=== PATIENT | male | born 1940 | race Caucasian/White ===

== ENCOUNTER 2016-02-20 07:54 | Emergency (ER) | payer MEDICARE ==
[2016-02-20] MEDS ORDERED: ONDANSETRON 4 MG/2 ML VIAL IVP STA (08:30)
[2016-02-20] MEDS ORDERED: MORPHINE SULFATE 4 MG/ML SYRINGE IV STA (08:30)
[2016-02-20] MEDS ORDERED: NITROGLYCERIN OINT 1 INCH/GM PACKET TOPICAL STA (08:30)
[2016-02-20] MEDS ORDERED: SODIUM CHLORIDE 0.9% 1,000 ML IV STA (08:30)
[2016-02-20] MEDS ORDERED: ENALAPRILAT 1.25 MG/ML 1 ML VIAL IVP STA (08:31)
--- NOTE | 2016-02-20 08:43 | ED ---
General Adult HPI - General Chief complaint: Recheck/Abnormal Lab/Rx Stated complaint: high bp Time Seen by Provider: 02/20/16 08:16 Source: patient, family Mode of arrival: wheelchair Limitations: no limitations - History of Present Illness Initial comments: Centered over the high blood pressure, his blood pressure this morning was at home was 205/95 in the ER was 226/95 beats off-and-on back pain since since and he was worried about his back pain and wanted the x-ray done because his family doctor called his urologist but these complaining about headache no blurred vision no chest pain no shortness of breath no abdominal pain he is complaining about the back pain that started the level of L4 and L5 no nausea no vomiting no frequency urgency dysuria back pain is 8/10 when he moves and when he is not moving his he is okay - Related Data Home Medications Medication Instructions Recorded Confirmed Calcium Carbonate [Tums] 500 - 1,000 mg PO HS PRN 04/22/15 02/20/16 Doxazosin [Cardura] 4 mg PO HS 04/22/15 02/20/16 Primidone [Mysoline] 100 mg PO QAM 04/22/15 02/20/16 Lansoprazole [Prevacid] 15 mg PO HS 06/27/15 02/20/16 Primidone [Mysoline] 50 mg PO HS 06/27/15 02/20/16 Propranolol HCl [Inderal] 60 mg PO BID 06/27/15 02/20/16 Simvastatin [Zocor] 20 mg PO Q48H 06/27/15 02/20/16 Aspirin 325 mg PO DAILY 02/20/16 02/20/16 Calcium Polycarbophil [Fibercon] 625 mg PO DAILY 02/20/16 02/20/16 Simvastatin [Zocor] 10 mg PO Q48H 02/20/16 02/20/16 Previous Rx's Medication Instructions Recorded Lisinopril [Zestril] 5 mg PO DAILY #90 tablet 04/25/15 traMADol HCL [Ultram] 50 mg PO Q6HR PRN #30 tab 02/20/16 Allergies Allergy/AdvReac Type Severity Reaction Status Date / Time No Known Allergies Allergy Verified 02/20/16 08:58 Review of Systems ROS Statement: Those systems with pertinent positive or pertinent negative responses have been documented in the HPI. ROS Other: All systems not noted in ROS Statement are negative. Past Medical History Past Medical History: Cancer, GERD/Reflux, Hyperlipidemia, Hypertension Additional Past Medical History / Comment(s): HX: PROSTATE CANCER. RENAL CALCULI kidney ca essential tremor History of Any Multi-Drug Resistant Organisms: None Reported Past Surgical History: Cholecystectomy, Heart Catheterization, Hernia Repair, Prostate Surgery Additional Past Surgical History / Comment(s): BILATERAL HERNIA. partial nephrectomy Past Anesthesia/Blood Transfusion Reactions: No Reported Reaction, Motion Sickness Past Psychological History: No Psychological Hx Reported Smoking Status: Never smoker Past Alcohol Use History: Rare Past Drug Use History: None Reported - Past Family History Father Family Medical History: Coronary Artery Disease (CAD) Mother Family Medical History: Coronary Artery Disease (CAD) General Exam - General Exam Comments Initial Comments: General: The patient is awake and alert, in no distress, and does not appear acutely ill. Skin: Skin is warm and dry and no rashes or lesions are noted. Eye: Pupils are equal, round and reactive to light, extra-ocular movements are intact; there is normal conjunctiva bilaterally. Ears, nose, mouth and throat: There are moist mucous membranes and no oral lesions. Neck: The neck is supple, there is no tenderness or JVD. Cardiovascular: There is a regular rate and rhythm. No murmur, rub or gallop is appreciated. Respiratory cardiac Respiratory: To auscultation bilateral, no wheezing no rhonchi no distress respiratory will noticed Gastrointestinal: Soft, non-distended, non-tender abdomen without masses or organomegaly noted. There is no rebound or guarding present. Bowel sounds are unremarkable. Back: There is tenderness at the L4 and L5 level Musculoskeletal: Normal ROM, no tenderness, There is no pedal edema. There is no calf tenderness or swelling. No cords were appreciated. Neurological: CN II-XII intact, Cranial nerves III through XII are intact. There are no obvious motor or sensory deficits. Coordination appears grossly intact. Speech is normal. Psychiatric: Cooperative, appropriate mood & affect, normal judgment. Limitations: no limitations Course Vital Signs 02/20/16 02/20/16 02/20/16 07:58 08:20 09:05 Temperature 96.9 F L Pulse Rate 58 L 50 L Pulse Rate [ 54 L Bilateral] Respiratory 18 16 Rate Blood Pressure 226/95 190/82 O2 Sat by Pulse 98 98 Oximetry 02/20/16 02/20/16 09:27 10:33 Temperature Pulse Rate 48 L 54 L Pulse Rate [ Bilateral] Respiratory 16 15 Rate Blood Pressure 166/75 127/63 O2 Sat by Pulse 99 95 Oximetry EKG Findings - EKG Comments: EKG Findings:: EKG shows sinus bradycardia ventricular rate is 51 IA interval is 262 QRS duration is 88 QT/QTc is 474/436 area of this EKG showed some flattening of the T-wave in lead 2:59 T-wave inversion in aVL and flattening of the T-wave in V6 no ST elevation noticed this EKG Medical Decision Making - Lab Data Result diagrams: 02/20/16 09:10 02/20/16 09:10 Lab Results 02/20/16 02/20/16 02/20/16 Range/Units 09:10 09:10 09:10 WBC 7.4 (3.8-10.6) k/uL RBC 4.85 (4.30-5.90) m/uL Hgb 15.1 (13.0-17.5) gm/dL Hct 44.5 (39.0-53.0) % MCV 91.8 (80.0-100.0) fL MCH 31.2 (25.0-35.0) pg MCHC 34.0 (31.0-37.0) g/dL RDW 13.1 (11.5-15.5) % Plt Count 143 L (150-450) k/uL Neutrophils % 60 % Lymphocytes % 25 % Monocytes % 7 % Eosinophils % 6 % Basophils % 1 % Neutrophils # 4.5 (1.3-7.7) k/uL Lymphocytes # 1.9 (1.0-4.8) k/uL Monocytes # 0.5 (0-1.0) k/uL Eosinophils # 0.4 (0-0.7) k/uL Basophils # 0.1 (0-0.2) k/uL PT (9.0-12.0) sec INR (<1.1) APTT (22.0-30.0) sec Sodium 143 (137-145) mmol/L Potassium 4.5 (3.5-5.1) mmol/L Chloride 103 (98-107) mmol/L Carbon Dioxide 28 (22-30) mmol/L Anion Gap 12 mmol/L BUN 15 (9-20) mg/dL Creatinine 0.96 (0.66-1.25) mg/dL Est GFR (MDRD) Af Amer >60 (>60 ml/min/1.73 sqM) Est GFR (MDRD) Non-Af >60 (>60 ml/min/1.73 sqM) Glucose 102 H (74-99) mg/dL Calcium 9.4 (8.4-10.2) mg/dL Magnesium 2.1 (1.6-2.3) mg/dL Total Bilirubin 1.2 (0.2-1.3) mg/dL AST 28 (17-59) U/L ALT 23 (21-72) U/L Alkaline Phosphatase 64 (38-126) U/L Total Creatine Kinase 172 H (55-170) U/L CK-MB (CK-2) 2.8 H* (0.0-2.4) ng/mL CK-MB (CK-2) Rel Index 1.6 Troponin I <0.012 (0.000-0.034) ng/mL Total Protein 7.6 (6.3-8.2) g/dL Albumin 4.3 (3.5-5.0) g/dL 02/20/16 Range/Units 09:10 WBC (3.8-10.6) k/uL RBC (4.30-5.90) m/uL Hgb (13.0-17.5) gm/dL Hct (39.0-53.0) % MCV (80.0-100.0) fL MCH (25.0-35.0) pg MCHC (31.0-37.0) g/dL RDW (11.5-15.5) % Plt Count (150-450) k/uL Neutrophils % % Lymphocytes % % Monocytes % % Eosinophils % % Basophils % % Neutrophils # (1.3-7.7) k/uL Lymphocytes # (1.0-4.8) k/uL Monocytes # (0-1.0) k/uL Eosinophils # (0-0.7) k/uL Basophils # (0-0.2) k/uL PT 10.5 (9.0-12.0) sec INR 1.0 (<1.1) APTT 24.9 (22.0-30.0) sec Sodium (137-145) mmol/L Potassium (3.5-5.1) mmol/L Chloride (98-107) mmol/L Carbon Dioxide (22-30) mmol/L Anion Gap mmol/L BUN (9-20) mg/dL Creatinine (0.66-1.25) mg/dL Est GFR (MDRD) Af Amer (>60 ml/min/1.73 sqM) Est GFR (MDRD) Non-Af (>60 ml/min/1.73 sqM) Glucose (74-99) mg/dL Calcium (8.4-10.2) mg/dL Magnesium (1.6-2.3) mg/dL Total Bilirubin (0.2-1.3) mg/dL AST (17-59) U/L ALT (21-72) U/L Alkaline Phosphatase (38-126) U/L Total Creatine Kinase (55-170) U/L CK-MB (CK-2) (0.0-2.4) ng/mL CK-MB (CK-2) Rel Index Troponin I (0.000-0.034) ng/mL Total Protein (6.3-8.2) g/dL Albumin (3.5-5.0) g/dL Critical Care Time Total Critical Care Time: 35 Critical Care Time: When he came in his blood pressure was 226/95 year headache for him and some pain medications watched him a monitored him closely also put him in a Vasotec IV that helped to bring his blood pressure down right naris blood pressure 126/ 70 he feels quite his head CT has minutes normal and he does have a ganglion cyst along the pterygoid muscle and the chest x-ray is normal his lumbar spine shows a lot of degenerative changes and bulging disc these findings were discussed with the patient in great detail and he be referred to Dr. Pitts,, the spine surgeon for follow-up he was advised to monitor his blood pressure once daily and he has appointment Dr. Le next Geovani, he was advised to avoid salt as much as he can loose weight that be beneficial for his hypertension as well as his back he agreed Disposition Clinical Impression: Hypertension, Headache, Back pain Disposition: HOME SELF-CARE Condition: Good Instructions: Chronic Hypertension (ED) Prescriptions: traMADol HCL [Ultram] 50 mg PO Q6HR PRN #30 tab PRN Reason: Pain Referrals: Jayden Adam MD [Primary Care Provider] - 1-2 days Isabel Pitts DO [Doctor of Osteopathic Medicine] - 1-2 days
[2016-02-20 09:30] LABS: Basophils # (A) 0.1 k/uL (0-0.2); Basophils % (A) 1 %; CH 32.5; CHCM 35.6; Eosinophils # (A) 0.4 k/uL (0-0.7); Eosinophils % (A) 6 %; HCT 44.5 % (39.0-53.0); HDW 2.79; HGB 15.1 gm/dL (13.0-17.5); Luc # (Auto) 0.15; Luc % (Auto) 2; Lymphocytes # (A) 1.9 k/uL (1.0-4.8); Lymphocytes % (A) 25 %; MCH 31.2 pg (25.0-35.0); MCV 91.8 fL (80.0-100.0); Mean Platelet Volume 8.9; Monocytes # (A) 0.5 k/uL (0-1.0); Monocytes % (A) 7 %; Neutrophils # (A) 4.5 k/uL (1.3-7.7); Neutrophils % (A) 60 %; RBC 4.85 m/uL (4.30-5.90); RDW 13.1 % (11.5-15.5); WBC 7.4 k/uL (3.8-10.6); WBC (Perox) 7.25
[2016-02-20 09:32] LABS: ALT 23 U/L (21-72); AST 28 U/L (17-59); Alkaline Phosphatase 64 U/L (38-126); Anion Gap 12 mmol/L; Blood Urea Nitrogen 15 mg/dL (9-20); Calcium 9.4 mg/dL (8.4-10.2); Carbon Dioxide 28 mmol/L (22-30); Chloride 103 mmol/L (98-107); Glucose 102 mg/dL (74-99); Magnesium 2.1 mg/dL (1.6-2.3); Non-African American GFR(MDRD) >60 (>60 ml/min/1.73 sqM); Partial Thromboplastin Time 24.9 sec (22.0-30.0); Potassium 4.5 mmol/L (3.5-5.1); Prothrombin Time 10.5 sec (9.0-12.0); Sodium 143 mmol/L (137-145); Total Bilirubin 1.2 mg/dL (0.2-1.3); Total Protein 7.6 g/dL (6.3-8.2)
[2016-02-20 09:53] LABS: Creatine Kinase 172 U/L (55-170)
[2016-02-20 10:05] LABS: Troponin I <0.012 ng/mL (0.000-0.034)
[2016-02-20 10:08] LABS: Creatine Kinase MB 2.8 ng/mL (0.0-2.4)
--- NOTE | 2016-02-20 10:11 | XR ---
EXAMINATION TYPE: XR chest 2V DATE OF EXAM: 02/20/2016 10:05 AM COMPARISON: 10/07/2015 HISTORY: Shortness of breath TECHNIQUE: Frontal and lateral views of the chest are obtained. FINDINGS: Scattered senescent parenchymal changes noted. Hyperinflation compatible with COPD. No evidence for infiltrate. No evidence for atelectasis. Heart size is stable. Mediastinal structures are stable and grossly unremarkable. No evidence for hilar prominence. Degenerative changes dorsal spine. IMPRESSION: 1. No evidence for acute pulmonary disease.
--- NOTE | 2016-02-20 10:18 | CT ---
EXAMINATION TYPE: CT brain wo con DATE OF EXAM: 02/20/2016 10:08 AM COMPARISON: NONE HISTORY: 75-year-old male with pain and high blood pressure TECHNIQUE: Examination was done in axial plane without intravenous contrast. Coronal and sagittal reconstructio ns performed. CT DLP: 1029.90 mGycm Automated exposure control for dose reduction was used. FINDINGS: There is no evidence of acute intracranial hemorrhage, acute ischemic changes, mass, mass-effect, or extra-axial fluid collection. There is no effacement of cerebral sulci or basal subarachnoid cister ns. There is no hydrocephalus. There is no midline shift. [place]-white matter distinction is preserv ed. There is mild patchy deep white matter hypodensity In both cerebral hemispheres and mild age related atrophy. Incidentally, there is a 1.8 x 0.9 cm hypodense area seen along the left pterygoid musculature and ad jacent left TMJ joint effusion. There appears to be some underlying degenerative change at the TMJ wi th remodeling of the condylar fossa. Slight rightward nasal septal deviation. Paranasal sinuses and mastoid air cells well pneumatized. IMPRESSION: 1. No acute intracranial abnormality seen. Mild age-related atrophy and mild changes of chronic small vessel ischemic disease. 2. There appears to be some degenerative change at the left TMJ with associated joint effusion and cates spected 1.8 cm ganglion cyst extending along the left pterygoid musculature. If the patient develops increasing pain in this region, follow-up dedicated imaging can be considered.
--- NOTE | 2016-02-20 10:25 | CT ---
EXAMINATION TYPE: CT lumbar spine wo con DATE OF EXAM: 02/20/2016 10:08 AM COMPARISON: NONE HISTORY: 75-year-old male with high blood pressure and pain. TECHNIQUE: Contiguous axial scanning of the lumbar spine without IV contrast. Coronal and sagittal re constructions performed. CT DLP: 623.80 mGycm Automated exposure control for dose reduction was used. FINDINGS: Vertebral body heights are preserved and alignment is maintained. Mild degenerative disc disease in the mid to lower lumbar spine with bulging discs. Some degenerative endplate change is also noted posteriorly along the superior L5 endplate. There is facet degenerative change mid to lower lumbar spine with trace grade 1 anterolisthesis at L3 -L4. At L3-L4, there is disc bulge and grade 1 anterolisthesis slightly impressing onto the thecal sac wit hout significant spinal canal stenosis. Changes result in mild bilateral neuroforaminal stenosis. At L4-L5, there is a bulging disc with superimposed left paracentral disc protrusion. This may abut t he traversing left L5 nerve root, axial image 55 and sagittal image 33. Changes result in mild bilate ral neuroforaminal stenosis without significant spinal canal stenosis. At L5-S1, there is a right paracentral broad-based disc protrusion which closely approaches the trave rsing right S1 nerve root, axial image 61 and sagittal image 29 without any mass effect onto the nerv e root. Changes result in moderate bilateral neuroforaminal stenoses. No prevertebral or paravertebral soft tissue abnormality seen. IMPRESSION: 1. OVERALL MILD TO MODERATE DEGENERATIVE DISC DISEASE AND FACET ARTHROPATHY IN THE MID TO LOWER LUMBA R SPINE. 2. THERE IS TRACE GRADE 1 ANTEROLISTHESIS OF L3-L4. 3. CHANGES RESULT IN MILD BILATERAL NEUROFORAMINAL STENOSIS AT L4-L5. IN ADDITION, A LEFT PARACENTRAL DISC HERNIATION AT THIS LEVEL ABUTS THE TRAVERSING LEFT L5 NERVE ROOT. 4. RIGHT PARACENTRAL BROAD-BASED DISC HERNIATION AT L5-S1 CLOSELY APPROACHES THE TRAVERSING RIGHT S1 NERVE ROOT. MODERATE BILATERAL NEUROFORAMINAL STENOSES AT THIS LEVEL.
[2016-02-20] MEDS ORDERED: amLODIPine 5 MG TAB PO STA (10:34)
[2016-02-20 11:54] VITALS: BP 119/58; PULSE 52; RESP 18; TEMP 97.3
== END 2016-02-20 12:01 | disposition home or self-care (01) ==
LOC: EC 07:54
DX: I10 Essential (primary) hypertension (principal); R51 Headache; M51.36 Other intervertebral disc degeneration, lumbar region; M48.06 Spinal stenosis, lumbar region; M67.48 Ganglion, other site; M51.26 Other intervertebral disc displacement, lumbar region; M51.27 Other intervertebral disc displacement, lumbosacral region; M48.07 Spinal stenosis, lumbosacral region; E78.5 Hyperlipidemia, unspecified; K21.9 Gastro-esophageal reflux disease without esophagitis; Z98.61 Coronary angioplasty status; Z79.82 Long term (current) use of aspirin; Z79.899 Other long term (current) drug therapy
CPT/HCPCS: 99291 ×2; 96374 ×2; 96375 ×2; 96361 ×4; 36415; 93005; 80053; 82550; 82553; 83735; 84484; 85025; 85610; 85730; 71020; 72131; 70450; J2405

== ENCOUNTER → 2016-02-27 | Outpatient (CLI) | payer MEDICARE ==
--- NOTE | 2016-02-27 14:58 | CT ---
EXAMINATION TYPE: CT abdomen w con DATE OF EXAM: 02/27/2016 2:29 PM COMPARISON: 10/07/2015 HISTORY: Kidney CA, 6th month follow up, Right Nephrectomy CT DLP: 504.80 mGycm Automated exposure control for dose reduction was used. TECHNIQUE: Helical acquisition of images was performed from the lung bases through the top of iliac crest to include entire abdomen. CONTRAST: Performed with Oral Contrast and with IV Contrast, patient injected with 100 mL of Omnipaque 300. FINDINGS: LUNG BASES: Global cardiomegaly noted.. LIVER/GB: Postcholecystectomy changes seen.. PANCREAS: No significant abnormality is seen. SPLEEN: No significant abnormality is seen. ADRENALS: No significant abnormality is seen. KIDNEYS: postsurgical change involving the right kidney. Area of low-attenuation along the inferior p ole of the right kidney noted and is stable. Hyperdensity along the lateral margin of the right kidne y in the surgical bed may be resultant from a tiny amount of hemorrhage or related to postoperative c hange. Low density nodule measuring 8 mm inferior pole right kidney stable from previous. Tiny amount fluid is seen in the right paracolic gutter. Additional tiny hypodensities measuring 5 mm less bilaterally are indeterminate. BOWEL: No significant abnormality is seen. LYMPH NODES: No greater than 1cm abdominal or pelvic lymph nodes are appreciated. OSSEOUS STRUCTURES: Hypertrophic and degenerative changes of the spine. OTHER: Atherosclerotic change of the aorta IMPRESSION: 1. Post partial right nephrectomy. There is a small residual hypodensity which appears to correspond to previous cyst along the lower pole which is STABLE in size. Deformity along the lateral margin of the right kidney likely postsurgical as discussed above. 2. No pathologic adenopathy.
--- NOTE | 2016-02-27 15:11 | XR ---
EXAMINATION TYPE: XR chest 2V DATE OF EXAM: 02/27/2016 1:37 PM COMPARISON: 02/20/2016 HISTORY: 75-year-old male kidney cancer TECHNIQUE: Frontal and lateral views FINDINGS: Heart remains upper limits of normal in size. Atherosclerotic arch calcifications. Mild diffuse inter stitial prominence is unchanged. No consolidation or pleural effusion. Mild hyperinflation also noted . IMPRESSION: Chronic changes without acute cardiopulmonary process.
== END | disposition home or self-care (01) ==
LOC: RADCTMAIN 13:00
PROVIDERS: ATTEND Urology
DX: C64.9 Malignant neoplasm of unspecified kidney, except renal pelvis (principal); Q63.8 Other specified congenital malformations of kidney; Z90.5 Acquired absence of kidney; R91.8 Other nonspecific abnormal finding of lung field
CPT/HCPCS: 71020; 74160; Q9967

== ENCOUNTER → 2017-03-31 | Outpatient (CLI) | payer MEDICARE ==
[2017-03-31 11:34] LABS: Blood Urea Nitrogen 17 mg/dL (9-20)
--- NOTE | 2017-03-31 11:41 | XR ---
EXAMINATION TYPE: XR chest 2V DATE OF EXAM: 03/31/2017 COMPARISON: 02/27/2016 TECHNIQUE: PA and lateral views submitted. HISTORY: Renal cancer FINDINGS: The lungs are clear and there is no pneumothorax, pleural effusion, or focal pneumonia. Atheroscler otic change aorta. Hypertrophic and degenerative change spine. IMPRESSION: 1. No acute process.
--- NOTE | 2017-03-31 14:32 | CT ---
EXAMINATION TYPE: CT abdomen pelvis w con DATE OF EXAM: 03/31/2017 COMPARISON: 02/27/2016 and a 06/04/2015 HISTORY: 76-year-old male Renal cancer TECHNIQUE: Contiguous axial scanning of the abdomen and pelvis following administration of 100 ml Omn ipaque 300 IV contrast. Delayed images through the kidneys and coronal/sagittal reconstructions perf ormed. CT DLP: 1459 mGycm Automated exposure control for dose reduction was used. FINDINGS: Heart upper limits of normal in size without pericardial effusion. Tiny hiatal hernia. Tiny 4 mm subp leural pulmonary nodule posterior left base axial image 10 and 4. A pulmonary nodule posterior right base axial image 11 are unchanged from 10/07/2015 suggesting a benign etiology. Low-density of the liver may reflect underlying fatty infiltration. No focal liver lesion. Cholecyste ctomy clips. No biliary ductal dilatation. Portal venous system is patent. The adrenal glands, spleen, and pancreas show no gross abnormal mobility. A subcentimeter hypodensity within each kidney appears to have been present on prior exams and are to o small for accurate CT characterization, probable cysts. Some post surgical changes are present along the posterior lower pole right kidney with residual mild fat stranding though this has improved from 02/27/2016. No new suspicious renal lesion. No mesenteric or retroperitoneal lymphadenopathy. Scattered small mesenteric lymph nodes are unchange d. Moderate episodic calcifications abdominal aorta and iliac arteries. No dilated small bowel, free fluid, or free air. Oral contrast has progressed to the hepatic flexure. There is mild to moderate stool and diverticulos is of the proximal to mid sigmoid. No pericolonic inflammatory change. Bladder urine distended. Surgical clips in the pelvis and changes of prior prostatectomy. Small bilat eral hydroceles are noted. No pelvic lymphadenopathy. Bones: Degenerative changes lower lumbar spine. Mild endplate spondylosis lower thoracic spine. No os seous destructive process. IMPRESSION: 1. POSTSURGICAL CHANGES ALONG THE POSTERIOR LOWER POLE RIGHT KIDNEY. NO EVIDENCE FOR LOCOREGIONAL REC URRENCE OR METASTATIC DISEASE. 2. A COUPLE 4 MM PULMONARY NODULES AT THE LUNG BASES ARE UNCHANGED FROM 10/07/2015 SUGGESTING A BENIGN ETIOLOGY. 3. SIGMOID DIVERTICULOSIS. 4. STATUS POST PROSTATECTOMY AND PELVIC LYMPH NODE DISSECTION.
== END | disposition home or self-care (01) ==
LOC: RADCTMAIN 10:31
PROVIDERS: ATTEND Urology
DX: C64.1 Malignant neoplasm of right kidney, except renal pelvis (principal); K57.30 Diverticulosis of large intestine without perforation or abscess without bleeding; Z90.79 Acquired absence of other genital organ(s); Z98.890 Other specified postprocedural states
CPT/HCPCS: 82565; 84520; 71046; 74177; 36415; Q9967

== ENCOUNTER → 2018-05-19 | Outpatient (CLI) | payer MEDICARE ==
--- NOTE | 2018-05-19 10:12 | XR ---
EXAMINATION TYPE: XR chest 2V DATE OF EXAM: 05/19/2018 COMPARISON: Chest x-ray March 31, 2017 HISTORY: History of prostate cancer 2006 with also renal cell carcinoma. TECHNIQUE: Frontal and lateral views of the chest are obtained. FINDINGS: There is no focal air space opacity, pleural effusion, or pneumothorax seen. The cardiac silhouette size is within normal limits with atherosclerotic change in thoracic aorta. Multilevel spu rring in thoracic spine is seen. Cholecystectomy clips are noted. IMPRESSION: No acute cardiopulmonary process.
== END ==
LOC: RADXRMAIN 09:49
PROVIDERS: ATTEND Urology
DX: C64.1 Malignant neoplasm of right kidney, except renal pelvis (principal)
CPT/HCPCS: 71046

== ENCOUNTER → 2019-01-19 | Outpatient (CLI) | payer MEDICARE ==
--- NOTE | 2019-01-19 15:06 | XR ---
EXAMINATION TYPE: XR chest 2V DATE OF EXAM: 01/19/2019 COMPARISON: 05/19/2018 HISTORY: Cough TECHNIQUE: Frontal and lateral views of the chest are obtained. FINDINGS: There is no focal air space opacity, pleural effusion, or pneumothorax seen. Flattening of the diaphragms on the lateral view suggests underlying COPD. The cardiac silhouette size is within n ormal limits. The osseous structures are intact. Mild degenerative change of the thoracic spine. IMPRESSION: No acute cardiopulmonary process. Findings suggesting underlying COPD.
== END | disposition home or self-care (01) ==
LOC: RADXRMAIN 14:15
PROVIDERS: ATTEND Family Medicine
DX: R05 Cough (principal)
CPT/HCPCS: 71046

== ENCOUNTER → 2019-07-24 | Outpatient (CLI) | payer MEDICARE ==
--- NOTE | 2019-07-24 09:07 | XR ---
EXAMINATION TYPE: XR chest 2V DATE OF EXAM: 07/24/2019 COMPARISON: 01/19/2019 HISTORY: Renal carcinoma TECHNIQUE: Frontal and lateral views of the chest are obtained. FINDINGS: There is no focal air space opacity, pleural effusion, or pneumothorax seen. . There is pu lmonary per inflation and flattening of the diaphragms on the lateral view again suggesting underlyin g COPD. The cardiac silhouette size is within normal limits. The osseous structures are intact. Mil d to moderate multilevel degenerative change of the spine. IMPRESSION: No acute cardiopulmonary process.
[2019-07-24 09:38] LABS: African American GFR (CKD) >90 (>60 ml/min/1.73 sqM); Blood Urea Nitrogen 11 mg/dL (9-20); Non-African American GFR(CKD) 85 (>60 ml/min/1.73 sqM)
--- NOTE | 2019-07-24 10:25 | CT ---
EXAMINATION TYPE: CT abdomen w con DATE OF EXAM: 07/24/2019 COMPARISON: CT 03/31/2017 HISTORY: follow up renal cancer CT DLP: 539 mGycm Automated exposure control for dose reduction was used. TECHNIQUE: Helical acquisition of images was performed from the lung bases through the top of iliac crest to include entire abdomen. CONTRAST: Performed with Oral Contrast and with IV Contrast, patient injected with 100 mL of Isovue 300. FINDINGS: LUNG BASES: No significant interval change is appreciated, possible calcified granuloma in the lingul a, soft tissue basilar nodules in the left lower lobe posteriorly are unchanged. LIVER/GB: No significant change is appreciated, patient is post cholecystectomy. PANCREAS: No significant abnormality is seen. SPLEEN: Stable. ADRENALS: No significant abnormality is seen. KIDNEYS: No significant double change is seen. BOWEL: Soft tissue at the level of the cecum may be present, was not seen on prior exam. Diverticula r changes associated with the colon. LYMPH NODES: No significant abnormality is appreciated. OSSEOUS STRUCTURES: No significant interval change is seen, degenerative disc changes are present in the lower lumbar spine. FREE AIR: No Free Air visible ASCITES: None visible. RETROPERITONEAL ADENOPATHY: No Retroperitoneal Adenopathy visible. OTHER: Atheromatous changes are present within the abdominal aorta as on prior extending into the brayden ac regions IMPRESSION: NO EVIDENT RECURRENCE WITHIN THE KIDNEYS. QUESTION ABNORMAL SOFT TISSUE ASSOCIATED WITH THE CECUM, IF BOWEL SURVEILLANCE HAS NOT BEEN PERFORMED THEN IT SHOULD BE CONSIDERED.
== END | disposition home or self-care (01) ==
LOC: RADCTMAIN 08:27
PROVIDERS: ATTEND Urology
DX: C64.1 Malignant neoplasm of right kidney, except renal pelvis (principal)
CPT/HCPCS: 82565; 84520; 71046; 74160; 36415; Q9967

== ENCOUNTER → 2020-09-02 | Outpatient (CLI) | payer MEDICARE ==
--- NOTE | 2020-09-02 10:32 | XR ---
EXAMINATION TYPE: XR chest 2V DATE OF EXAM: 09/02/2020 COMPARISON: 07/24/2019 HISTORY: Neoplasm of kidney TECHNIQUE: Frontal and lateral views of the chest are obtained. FINDINGS: There is no focal air space opacity, pleural effusion, or pneumothorax seen. The cardiac silhouette size is within normal limits. The osseous structures are intact. IMPRESSION: No acute cardiopulmonary process.
--- NOTE | 2020-09-02 10:40 | US ---
EXAMINATION TYPE: US kidneys/renal and bladder DATE OF EXAM: 09/02/2020 COMPARISON: 07/24/2019, 03/29/2015 CLINICAL HISTORY: C64.9 NEOPLASM OF KIDNEY. History of neoplasm right kidney EXAM MEASUREMENTS: Right Kidney: 9.1 x 5.2 x 5.4 cm Left Kidney: 11.2 x 4.9 x 3.7 cm Right Kidney: No hydronephrosis or masses seen Left Kidney: No hydronephrosis or masses seen Bladder: Anechoic Bilateral Jets seen: Yes There is no evidence for hydronephrosis at this point in time. No nephrolithiasis is seen. No abena s are identified. Bilateral renal cortical thinning. The urinary bladder is anechoic. Bilateral ure teral jets are seen. IMPRESSION: There is bilateral renal cortical thinning which is most consistent with chronic medical renal diseas e.
== END | disposition home or self-care (01) ==
LOC: RADUSWWP 09:35
PROVIDERS: ATTEND Urology
DX: C64.9 Malignant neoplasm of unspecified kidney, except renal pelvis (principal)
CPT/HCPCS: 71046; 76770

== ENCOUNTER → 2021-02-27 | Outpatient (CLI) | payer MEDICARE ==
--- NOTE | 2021-02-27 12:28 | XR ---
EXAMINATION TYPE: XR chest 2V DATE OF EXAM: 02/27/2021 COMPARISON: 09/02/2020 HISTORY: 80-year-old male R05.9 TECHNIQUE: Frontal and lateral views FINDINGS: Heart normal size. Atherosclerotic arch calcifications. Some strandy atelectasis at the left base. Ot herwise, no consolidation or pleural effusion. Mild degenerative disc disease midthoracic spine. IMPRESSION: Strandy atelectasis at the left base. No acute process seen.
== END | disposition home or self-care (01) ==
LOC: RADXRMAIN 09:31
PROVIDERS: ATTEND Registered Nurse
DX: R05.9 Cough, unspecified (principal)
CPT/HCPCS: 71046

== ENCOUNTER → 2021-11-19 | Outpatient (CLI) | payer MEDICARE ==
[2021-11-19 16:03] LABS: ALT 15 U/L (10-49); AST 19 U/L (14-35); Albumin 4.1 g/dL (3.8-4.9); Albumin/Globulin Ratio 1.71 (1.60-3.17); Alkaline Phosphatase 73 U/L (41-126); Blood Urea Nitrogen 19.9 mg/dL (9.0-27.0); Calcium 9.1 mg/dL (8.7-10.3); Carbon Dioxide 26.1 mmol/L (20.0-27.5); Chloride 103 mmol/L (96-109); Chol/HDL Ratio 3.97 Ratio; Globulin 2.4 g/dL (1.6-3.3); Glucose 110 mg/dL (70-110); LDL Cholesterol,Calculated 31.7 mg/dL (0.0-131.0); Non-African American GFR(CKD) 70.8 (60.0-200.0); Potassium 4.7 mmol/L (3.5-5.5); Sodium 137 mmol/L (135-145); Total Protein 6.5 g/dL (6.2-8.2)
== END | disposition home or self-care (01) ==
LOC: LABWHC1 09:04
PROVIDERS: ATTEND Internal Medicine Interventional Cardiology
DX: I10 Essential (primary) hypertension (principal); E78.2 Mixed hyperlipidemia
CPT/HCPCS: 36415; 80053; 80061

== ENCOUNTER 2022-01-05 11:02 | Inpatient (IN) | payer MEDICARE ==
[2022-01-05 11:18] LABS: Glucose,Whole Blood 108 mg/dL (70-110)
[2022-01-05] MEDS ORDERED: ALTEPLASE BOLUS FOR STROKE 7 MG in EMPTY SYRINGE 1 SYR IV STA (11:29)
[2022-01-05] MEDS ORDERED: ALTEPLASE 66 MG in EMPTY BAG 1 BAG IV STA (11:29)
[2022-01-05 11:33] LABS: Basophils # (A) 0.1 k/uL (0-0.2); Basophils % (A) 1 %; Eosinophils # (A) 0.3 k/uL (0-0.7); Eosinophils % (A) 3 %; HCT 40.9 % (39.0-53.0); HGB 14.4 gm/dL (13.0-17.5); Lymphocytes # (A) 1.8 k/uL (1.0-4.8); Lymphocytes % (A) 23 %; MCH 33.1 pg (25.0-35.0); MCHC 35.4 g/dL (31.0-37.0); MCV 93.7 fL (80.0-100.0); Mean Platelet Volume 8.8; Monocytes # (A) 0.5 k/uL (0-1.0); Monocytes % (A) 6 %; Neutrophils # (A) 5.1 k/uL (1.3-7.7); Neutrophils % (A) 65 %; Platelet Count 155 k/uL (150-450); RBC 4.36 m/uL (4.30-5.90); RDW 12.8 % (11.5-15.5); WBC 7.8 k/uL (3.8-10.6)
[2022-01-05 11:44] LABS: INR 0.9 (<1.2); Prothrombin Time 10.3 sec (9.0-12.0)
[2022-01-05 11:45] LABS: Albumin 4.6 g/dL (3.5-5.0); Calcium 8.9 mg/dL (8.4-10.2); Potassium 3.8 mmol/L (3.5-5.1); Total Bilirubin 1.5 mg/dL (0.2-1.3); Total Protein 7.6 g/dL (6.3-8.2)
--- NOTE | 2022-01-05 11:56 | ED ---
General Adult HPI - General Chief complaint: Neuro Symptoms/Deficit Stated complaint: Stroke Time Seen by Provider: 01/05/22 11:05 Source: patient Mode of arrival: ambulatory Limitations: no limitations - History of Present Illness Initial comments: 81-year-old male with past nuchal history of GERD, hypertension, hyperlipidemia who presents to the emergency department with strokelike symptoms. States that he awoke around 645 and felt fine. Around 10:30 the patient had sudden onset of left-sided facial droop and left upper extremity weakness. He was unable to eat and drink and had some drooling. He is no previous history of stroke. He takes Plavix but no other anticoagulation. Denies any head trauma. No headache. Denies any visual changes. No fevers. Patient is right-hand dominant. No other alleviating, precipitating or modifying factors - Related Data Home Medications Medication Instructions Recorded Confirmed Doxazosin [Cardura] 4 mg PO DAILY@0800 04/22/15 01/05/22 Primidone [Mysoline] 50 mg PO BID@0800,1200 04/22/15 01/05/22 Propranolol HCl [Inderal] 60 mg PO BID@0800,1200 06/27/15 01/05/22 Atorvastatin [Lipitor] 20 mg PO HS 11/24/21 01/05/22 Cabergoline 0.5 mg PO MO@0800 11/24/21 01/05/22 Isosorbide Mononitrate ER [Imdur] 30 mg PO DAILY@0800 11/24/21 01/05/22 Losartan Potassium 100 mg PO DAILY@0800 11/24/21 01/05/22 amLODIPine [Norvasc] 5 mg PO DAILY@0800 11/24/21 01/05/22 Aspirin EC [Ecotrin Low Dose] 81 mg PO DAILY@0800 01/05/22 01/05/22 Clopidogrel [Plavix] 75 mg PO DAILY@0800 01/05/22 01/05/22 Previous Rx's Medication Instructions Recorded Nitroglycerin Sl Tabs [Nitrostat] 0.4 mg SUBLINGUAL Q5M PRN #25 tab 11/25/21 Allergies Allergy/AdvReac Type Severity Reaction Status Date / Time No Known Allergies Allergy Verified 01/05/22 11:06 Review of Systems ROS Statement: Those systems with pertinent positive or pertinent negative responses have been documented in the HPI. ROS Other: All systems not noted in ROS Statement are negative. Past Medical History Past Medical History: Cancer, GERD/Reflux, Hyperlipidemia, Hypertension Additional Past Medical History / Comment(s): HX: PROSTATE CANCER. RENAL CALCULI. KIDNEY CANCER. ESSENTIAL TREMOR. History of Any Multi-Drug Resistant Organisms: None Reported Past Surgical History: Cholecystectomy, Heart Catheterization, Hernia Repair, Prostate Surgery Additional Past Surgical History / Comment(s): PARTIAL NEPHRECTOMY. LAMAR. C ATARACT REMOVAL WITH LENS IMPLANTS Past Anesthesia/Blood Transfusion Reactions: No Reported Reaction, Motion Sickness Past Psychological History: No Psychological Hx Reported Smoking Status: Never smoker Past Alcohol Use History: None Reported Past Drug Use History: None Reported - Past Family History Father Family Medical History: Coronary Artery Disease (CAD) Mother Family Medical History: Coronary Artery Disease (CAD) General Exam Limitations: no limitations General appearance: alert Head exam: Present: other (left sided facial droop) Eye exam: Present: PERRL, other (patient cannot cross midline and look to the left. left hemineglect) ENT exam: Present: mucous membranes moist Neck exam: Present: normal inspection. Absent: tenderness, meningismus, lymphadenopathy Respiratory exam: Present: normal lung sounds bilaterally. Absent: respiratory distress, wheezes, rales, rhonchi, stridor Cardiovascular Exam: Present: regular rate, normal rhythm, normal heart sounds. Absent: systolic murmur, diastolic murmur, rubs, gallop, clicks GI/Abdominal exam: Present: soft, normal bowel sounds. 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 left arm drifts but does not hit bed. left leg drift but does not hit bed. right arm and leg have intact strength) Neurological exam: Present: alert, other (moderate dysarthria due to facial droop. no aphasia. answers questions appropriately) Skin exam: Present: warm, dry, intact, normal color. Absent: rash Course Vital Signs 01/05/22 01/05/22 01/05/22 11:04 11:10 11:24 Temperature 97.5 F L 98.2 F 98.2 F Pulse Rate 55 L 56 L Respiratory 18 16 Rate Blood Pressure 182/73 151/90 O2 Sat by Pulse 96 97 Oximetry 01/05/22 01/05/22 01/05/22 12:05 12:10 12:16 Temperature Pulse Rate 56 L 54 L 51 L Respiratory 16 16 18 Rate Blood Pressure 174/73 155/72 O2 Sat by Pulse 96 95 Oximetry 01/05/22 01/05/22 01/05/22 12:25 12:30 12:45 Temperature 98.3 F Pulse Rate 54 L 52 L 53 L Respiratory 12 18 22 Rate Blood Pressure 158/67 158/67 160/70 O2 Sat by Pulse 97 96 97 Oximetry 01/05/22 01/05/22 01/05/22 13:00 13:02 13:15 Temperature 98.5 F Pulse Rate 51 L 59 L 53 L Respiratory 18 19 20 Rate Blood Pressure 149/79 147/62 164/78 O2 Sat by Pulse 97 98 97 Oximetry 01/05/22 01/05/22 01/05/22 13:17 13:30 13:32 Temperature 98.5 F 98.3 F Pulse Rate 55 L 54 L 53 L Respiratory 19 18 16 Rate Blood Pressure 177/62 145/74 167/80 O2 Sat by Pulse 98 98 98 Oximetry 01/05/22 01/05/22 01/05/22 13:45 14:00 14:15 Temperature 98.5 F 9836 F H Pulse Rate 50 L 53 L 56 L Respiratory 19 21 13 Rate Blood Pressure 167/80 145/74 185/84 O2 Sat by Pulse 98 97 98 Oximetry 01/05/22 01/05/22 01/05/22 14:30 14:45 15:00 Temperature Pulse Rate 55 L 58 L 55 L Respiratory 18 17 18 Rate Blood Pressure 185/84 168/107 179/89 O2 Sat by Pulse 99 99 99 Oximetry 01/05/22 01/05/22 01/05/22 15:15 15:30 15:45 Temperature Pulse Rate 53 L 56 L 51 L Respiratory 20 22 20 Rate Blood Pressure 164/93 151/62 144/61 O2 Sat by Pulse 98 98 97 Oximetry 01/05/22 01/05/22 01/05/22 16:00 16:15 16:30 Temperature Pulse Rate 53 L 53 L 57 L Respiratory 13 16 14 Rate Blood Pressure 147/60 140/56 147/60 O2 Sat by Pulse 96 96 96 Oximetry 01/05/22 01/05/22 01/05/22 16:45 17:00 17:15 Temperature Pulse Rate 50 L 51 L 63 Respiratory 10 L 20 11 L Rate Blood Pressure 150/61 142/52 137/53 O2 Sat by Pulse 97 97 97 Oximetry 01/05/22 01/05/22 01/05/22 17:30 17:45 18:00 Temperature 98.6 F Pulse Rate 53 L 51 L 51 L Respiratory 22 22 21 Rate Blood Pressure 125/62 144/56 156/61 O2 Sat by Pulse 97 98 Oximetry 01/05/22 01/05/22 01/05/22 18:15 18:30 18:45 Temperature 98.6 F 97.9 F Pulse Rate 56 L 52 L 55 L Respiratory 20 17 23 Rate Blood Pressure 148/62 194/84 158/74 O2 Sat by Pulse 98 97 97 Oximetry 01/05/22 01/05/22 01/05/22 19:00 19:15 19:30 Temperature Pulse Rate 54 L 57 L 53 L Respiratory 21 7 L 32 H Rate Blood Pressure 170/80 162/64 149/68 O2 Sat by Pulse 97 98 98 Oximetry 01/05/22 01/05/22 01/05/22 19:45 20:00 20:15 Temperature Pulse Rate 68 53 L 53 L Respiratory 20 9 L 24 Rate Blood Pressure 165/66 151/60 160/73 O2 Sat by Pulse 97 98 97 Oximetry 01/05/22 01/05/22 01/05/22 20:30 20:45 21:00 Temperature Pulse Rate 52 L 57 L 54 L Respiratory 23 19 23 Rate Blood Pressure 174/77 171/71 166/84 O2 Sat by Pulse 97 97 98 Oximetry 01/05/22 01/05/22 01/05/22 21:15 21:30 21:49 Temperature Pulse Rate 52 L 57 L 57 L Respiratory 19 21 25 H Rate Blood Pressure 176/77 177/78 O2 Sat by Pulse 97 97 97 Oximetry - Reevaluation(s) Reevaluation #1: Patient in CT now. Images delayed due to another patient in ED with neurologic symptoms who arrived previous to this patient 01/05/22 11:46 Reevaluation #2: 01/05/22 11:59 - CT read Reevaluation #3: TPA given EKG Findings - EKG Comments: EKG Findings:: EKG was interpreted by myself. Demonstrates sinus bradycardia with a rate of 58. ND interval 278. QRS 100. QTC of 432. Inverted T wave with mild ST depression 2, 3, aVF. No acute ST segment elevation. Medical Decision Making - Medical Decision Making NIH 12 Upon arrival patient was placed into a trauma 1. A thorough history and physical exam was performed. NIH is 12 with a last known well of 10:30. Because of this code alteplase is activated. His CT is delayed as there is an additional critical patient with neurologic symptoms in the emergency department and goes to CAT scan prior to the patient as that patient is unstable. Patient's CT negative for acute CVA. Spoke with Dr. Barrios who feels that the patient would benefit from TPA. Risks and benefits are discussed with the patient. he was agreeable therefore TPA was administered. He remained stable. I called and spoke with Dr. Sellers who admitted the patient. Spoke with Dr. Dahl from neurology and Dr. Son. Patient taken to the ICU. - Lab Data Result diagrams: 01/06/22 05:47 01/06/22 05:47 Lab Results 01/05/22 01/05/22 01/05/22 Range/Units 11:17 11:20 11:20 WBC 7.8 (3.8-10.6) k/uL RBC 4.36 (4.30-5.90) m/uL Hgb 14.4 (13.0-17.5) gm/dL Hct 40.9 (39.0-53.0) % MCV 93.7 (80.0-100.0) fL MCH 33.1 (25.0-35.0) pg MCHC 35.4 (31.0-37.0) g/dL RDW 12.8 (11.5-15.5) % Plt Count 155 (150-450) k/uL MPV 8.8 Neutrophils % 65 % Lymphocytes % 23 % Monocytes % 6 % Eosinophils % 3 % Basophils % 1 % Neutrophils # 5.1 (1.3-7.7) k/uL Lymphocytes # 1.8 (1.0-4.8) k/uL Monocytes # 0.5 (0-1.0) k/uL Eosinophils # 0.3 (0-0.7) k/uL Basophils # 0.1 (0-0.2) k/uL PT 10.3 (9.0-12.0) sec INR 0.9 (<1.2) APTT 21.1 L (22.0-30.0) sec Sodium (137-145) mmol/L Potassium (3.5-5.1) mmol/L Chloride (98-107) mmol/L Carbon Dioxide (22-30) mmol/L Anion Gap mmol/L BUN (9-20) mg/dL Creatinine (0.66-1.25) mg/dL Est GFR (CKD-EPI)AfAm (>60 ml/min/1.73 sqM) Est GFR (CKD-EPI)NonAf (>60 ml/min/1.73 sqM) Glucose (74-99) mg/dL POC Glucose (mg/dL) 108 (70-110) mg/dL POC Glu Auto Body Man ID [address] Glu mg/dL Hemoglobin A1c (0.0-6.0) % Calcium (8.4-10.2) mg/dL Total Bilirubin (0.2-1.3) mg/dL AST (17-59) U/L ALT (4-49) U/L Alkaline Phosphatase (38-126) U/L Troponin I (0.000-0.034) ng/mL Total Protein (6.3-8.2) g/dL Albumin (3.5-5.0) g/dL TSH (0.465-4.680) mIU/L 01/05/22 01/05/22 01/05/22 Range/Units 11:20 11:20 11:20 WBC (3.8-10.6) k/uL RBC (4.30-5.90) m/uL Hgb (13.0-17.5) gm/dL Hct (39.0-53.0) % MCV (80.0-100.0) fL MCH (25.0-35.0) pg MCHC (31.0-37.0) g/dL RDW (11.5-15.5) % Plt Count (150-450) k/uL MPV Neutrophils % % Lymphocytes % % Monocytes % % Eosinophils % % Basophils % % Neutrophils # (1.3-7.7) k/uL Lymphocytes # (1.0-4.8) k/uL Monocytes # (0-1.0) k/uL Eosinophils # (0-0.7) k/uL Basophils # (0-0.2) k/uL PT (9.0-12.0) sec INR (<1.2) APTT (22.0-30.0) sec Sodium 140 (137-145) mmol/L Potassium 3.8 (3.5-5.1) mmol/L Chloride 102 (98-107) mmol/L Carbon Dioxide 29 (22-30) mmol/L Anion Gap 9 mmol/L BUN 19 (9-20) mg/dL Creatinine 1.15 (0.66-1.25) mg/dL Est GFR (CKD-EPI)AfAm 70 (>60 ml/min/1.73 sqM) Est GFR (CKD-EPI)NonAf 60 (>60 ml/min/1.73 sqM) Glucose 107 H (74-99) mg/dL POC Glucose (mg/dL) (70-110) mg/dL POC Glu Auto Body Man ID Estimated Ave Glu mg/dL 121 Hemoglobin A1c 5.8 (0.0-6.0) % Calcium 8.9 (8.4-10.2) mg/dL Total Bilirubin 1.5 H (0.2-1.3) mg/dL AST 28 (17-59) U/L ALT 17 (4-49) U/L Alkaline Phosphatase 75 (38-126) U/L Troponin I <0.012 (0.000-0.034) ng/mL Total Protein 7.6 (6.3-8.2) g/dL Albumin 4.6 (3.5-5.0) g/dL TSH (0.465-4.680) mIU/L 01/05/22 Range/Units 11:20 WBC (3.8-10.6) k/uL RBC (4.30-5.90) m/uL Hgb (13.0-17.5) gm/dL Hct (39.0-53.0) % MCV (80.0-100.0) fL MCH (25.0-35.0) pg MCHC (31.0-37.0) g/dL RDW (11.5-15.5) % Plt Count (150-450) k/uL MPV Neutrophils % % Lymphocytes % % Monocytes % % Eosinophils % % Basophils % % Neutrophils # (1.3-7.7) k/uL Lymphocytes # (1.0-4.8) k/uL Monocytes # (0-1.0) k/uL Eosinophils # (0-0.7) k/uL Basophils # (0-0.2) k/uL PT (9.0-12.0) sec INR (<1.2) APTT (22.0-30.0) sec Sodium (137-145) mmol/L Potassium (3.5-5.1) mmol/L Chloride (98-107) mmol/L Carbon Dioxide (22-30) mmol/L Anion Gap mmol/L BUN (9-20) mg/dL Creatinine (0.66-1.25) mg/dL Est GFR (CKD-EPI)AfAm (>60 ml/min/1.73 sqM) Est GFR (CKD-EPI)NonAf (>60 ml/min/1.73 sqM) Glucose (74-99) mg/dL POC Glucose (mg/dL) (70-110) mg/dL POC Glu Auto Body Man ID Estimated Ave Glu mg/dL Hemoglobin A1c (0.0-6.0) % Calcium (8.4-10.2) mg/dL Total Bilirubin (0.2-1.3) mg/dL AST (17-59) U/L ALT (4-49) U/L Alkaline Phosphatase (38-126) U/L Troponin I (0.000-0.034) ng/mL Total Protein (6.3-8.2) g/dL Albumin (3.5-5.0) g/dL TSH 0.868 (0.465-4.680) mIU/L Critical Care Time Critical Care Time: Yes Critical Care Time: 40 minutes Disposition Clinical Impression: CVA (cerebral vascular accident), Facial droop, Left arm weakness Disposition: [facility] Condition: Serious Is patient prescribed a controlled substance at d/c from ED?: No Time of Disposition: 13:04 Decision to Admit Reason: Admit from EC Decision Date: 01/05/22 Decision Time: 13:04
--- NOTE | 2022-01-05 11:59 | CT ---
EXAMINATION TYPE: CT brain wo con for TPA CT DLP: 1206.6 mGycm, Automated exposure control for dose reduction was used. DATE OF EXAM: 01/05/2022 11:48 AM COMPARISON: CT brain 02/20/2016. CLINICAL INDICATION:Male, 81 years old with history of Neuro deficit, acute, stroke suspected, Lt arm weakness, Lt facial droop, slurred speech TECHNIQUE: Brain: Axial CT images of the brain were obtained with coronal and sagittal reformats created and rev iewed. Contrast used: None. Oral contrast used: None. FINDINGS: Brain: Extra-axial spaces: No abnormal extra-axial fluid collections. Ventricular system: Dilatation in proportion to cerebral atrophy. Cerebral parenchyma: Cerebral atrophy. No acute intraparenchymal hemorrhage or mass effect. The wilkerson -white junction is well differentiated. Scattered hypoattenuating areas are seen within the white mat ter. Cerebellum: Unremarkable. Mass effect: No evidence of midline shift. Intracranial vasculature: Atherosclerotic calcifications of the intracranial vessels. Soft tissues: Normal. Calvarium/osseous structures: No depressed skull fracture. Paranasal sinuses and mastoid air cells: Mild scattered paranasal sinus disease. Visualized orbits: Bilateral aphakia IMPRESSION: 1. No acute intracranial process. 2. Nonspecific white matter changes, likely secondary to chronic small vessel ischemic disease.
[2022-01-05 12:08] LABS: Partial Thromboplastin Time 21.1 sec (22.0-30.0)
[2022-01-05] MEDS ORDERED: SODIUM CHLORIDE 0.9% 50 ML MINI-BAG IV ONE (12:29)
--- NOTE | 2022-01-05 12:35 | CT ---
EXAMINATION TYPE: CT angio head neck CT DLP: 598.3 mGycm, Automated exposure control for dose reduction was used. DATE OF EXAM: 01/05/2022 12:25 PM COMPARISON: CT same day. CLINICAL INDICATION:Male, 81 years old with history of Neuro deficit, acute, stroke suspected, Lt arm weakness, Lt facial droop, slurred speech TECHNIQUE: Axially acquired helical CT angiogram of the head and neck was obtained with contrast. Axi al images are supplemented with 3D reconstructions which [facility] NASCET criteria used. Contrast used:65 mL of Isovue 370 with IV Contrast, Oral contrast used: None. FINDINGS: CTA HEAD: Bilateral aphakia. No evidence of acute intracranial hemorrhage, mass effect, or midline shift. The ventricles, sulci, a nd cisterns are unremarkable. The visualized portions of the internal carotid arteries, middle cerebral arteries, anterior cerebral arteries, and posterior cerebral arteries are patent. Atherosclerosis of the intracranial portions o f the internal carotid arteries. The basilar and vertebral arteries are patent. CTA NECK: Right Carotid System: The common carotid artery and external carotid artery are patent. The carotid bifurcation demonstrate s no evidence of hemodynamically significant stenosis. Calcified plaque at the carotid bifurcation. T he remaining portions of the internal carotid artery demonstrate normal size without significant narr owing. Left Carotid System: The common carotid artery and external carotid artery are patent. The carotid bifurcation demonstrate s no evidence of hemodynamically significant stenosis. Calcified plaque at the carotid bifurcation. T he remaining portions of the internal carotid artery demonstrate normal size without significant narr owing. Vertebral arteries are patent without evidence hemodynamically significant stenosis. There is a three-vessel aortic arch. The origins of the great vessels are patent. No evidence of hemo dynamically significant stenosis. IMPRESSION: 1. No evidence of dissection of the cervical internal carotid arteries or vertebral arteries or any e vidence of significant stenosis at the carotid bifurcations. 2. No evidence of intracranial high-grade stenosis or intracranial aneurysm.
[2022-01-05] MEDS ORDERED: Alteplase PER PHARMACY Stroke 1 EACH MISC MISCELLANE PRN (13:02)
[2022-01-05] MEDS ORDERED: NALOXONE 0.4 MG/ML 1 ML VIAL IV PRN (13:11)
[2022-01-05] MEDS: SODIUM CHLORIDE 0.9% 1,000 ML IV SCH ×2 (13:56→22:28)
--- NOTE | 2022-01-05 14:32 | XR ---
EXAMINATION TYPE: XR chest 1V portable DATE OF EXAM: 01/05/2022 2:15 PM COMPARISON: Chest radiographs from TECHNIQUE: XR chest 1V portable Portable AP radiograph of the chest. CLINICAL INDICATION:Male, 81 years old with history of altered mental status; FINDINGS: Lungs/Pleura: There is no evidence of pleural effusion, focal consolidation, or pneumothorax. Pulmonary vascularity: Unremarkable. Heart/mediastinum: Cardiomediastinal silhouette is enlarged and stable. Atherosclerotic calcificatio ns are seen in the aorta. Musculoskeletal: No acute osseous pathology. IMPRESSION: No acute cardiopulmonary disease/process.
--- NOTE | 2022-01-05 14:50 | P.CNNES ---
History of Present Illness Consult date: 01/05/22 Requesting physician: Gila Francis Reason for Consult: acute cva s/p tpa History of Present Illness: This is an 81-year-old gentleman who presented to the emergency department on 01/05/2022 because sudden onset left facial weakness and left upper extremity. He is accompanied by his (who is at bedside). He stated that he was doing well early in the morning today and around 10:30 in the morning he noticed he was drooling on the left side and noticed left upper extremity weakness that he was dropping thing on left hand. Denies noticing left leg weakness or fall. He felt his speech is garbled. Denies numbness, visual disturbance. Patient denies being on any anticoagulation. Patient is on aspirin 81 and Plavix 75 as well as Lipitor 20 mg daily at bedtime. He stated he is compliant taking his medications. Denies history of stroke or head trauma. Patient presents to our facility on 01/05/2022 around 11:02 AM. Of note patient stated that he has underlying essential tremor and that is following-up with Dr. Aleman as outpatient. He has a history of corneal artery disease status post stent in 11/25/2021. As a result of her symptoms her workup in the ED consisted of: CBC with differential is unremarkable Chemistry panels glucose is 107 and total bilirubin is 1.5 otherwise rest is unremarkable. As a result a stroke code pager was activated by the ED team. His initial NIH stroke scale was a [address] by the ED team. CT of the head is reported as no acute intracranial process. Nonspecific white matter changes, likely secondary to chronic small vessel ischemic disease. CT angiography of the head and neck was reported as no evidence of dissection of the cervical internal carotid arteries or vertebral arteries or any evidence of significant stenosis at the carotid bifurcation. No evidence of intracranial high-grade stenosis or intracranial aneurysm. Patient received IV TPA with a bolus of 7 mg and the remaining 66 mg was infusion over 1 hour. Patient received the the bolus is seems around 11:29 AM in our facility. Review of Systems Review of system: The 12 point system was reviewed and apparent positive and negative per HPI. Past Medical History Past Medical History: Cancer, GERD/Reflux, Hyperlipidemia, Hypertension Additional Past Medical History / Comment(s): HX: PROSTATE CANCER. RENAL CALCULI. KIDNEY CANCER. ESSENTIAL TREMOR. History of Any Multi-Drug Resistant Organisms: None Reported Past Surgical History: Cholecystectomy, Heart Catheterization, Hernia Repair, Prostate Surgery Additional Past Surgical History / Comment(s): PARTIAL NEPHRECTOMY. LAMAR. CATARACT REMOVAL WITH LENS IMPLANTS Past Anesthesia/Blood Transfusion Reactions: No Reported Reaction, Motion Sickness Past Psychological History: No Psychological Hx Reported Smoking Status: Never smoker Past Alcohol Use History: None Reported Past Drug Use History: None Reported - Past Family History Father Family Medical History: Coronary Artery Disease (CAD) Mother Family Medical History: Coronary Artery Disease (CAD) Medications and Allergies Home Medications Medication Instructions Recorded Confirmed Type Doxazosin [Cardura] 4 mg PO DAILY@0800 04/22/15 01/05/22 History Primidone [Mysoline] 50 mg PO BID@0800,1200 04/22/15 01/05/22 History Propranolol HCl [Inderal] 60 mg PO BID@0800,1200 06/27/15 01/05/22 History Atorvastatin [Lipitor] 20 mg PO HS 11/24/21 01/05/22 History Cabergoline 0.5 mg PO MO@0800 11/24/21 01/05/22 History Isosorbide Mononitrate ER [Imdur] 30 mg PO DAILY@0800 11/24/21 01/05/22 History Losartan Potassium 100 mg PO DAILY@0800 11/24/21 01/05/22 History amLODIPine [Norvasc] 5 mg PO DAILY@0800 11/24/21 01/05/22 History Nitroglycerin Sl Tabs [Nitrostat] 0.4 mg SUBLINGUAL Q5M PRN #25 tab 11/25/21 01/05/22 Rx Aspirin EC [Ecotrin Low Dose] 81 mg PO DAILY@0800 01/05/22 01/05/22 History Clopidogrel [Plavix] 75 mg PO DAILY@0800 01/05/22 01/05/22 History Allergies Allergy/AdvReac Type Severity Reaction Status Date / Time No Known Allergies Allergy Verified 01/05/22 11:06 Physical Examination - Vital Signs Vital Signs: Vital Signs Temp Pulse Resp BP Pulse Ox 01/05/22 13:32 98.3 F 53 L 16 167/80 98 01/05/22 13:17 98.5 F 55 L 19 177/62 98 01/05/22 13:02 98.5 F 59 L 19 147/62 98 01/05/22 13:00 57 L 20 152/65 97 01/05/22 12:25 98.3 F 54 L 12 158/67 97 01/05/22 12:10 54 L 16 01/05/22 12:05 56 L 16 174/73 96 01/05/22 11:24 98.2 F 01/05/22 11:10 98.2 F 56 L 16 151/90 97 01/05/22 11:04 97.5 F L 55 L 18 182/73 96 Intake and Output 01/04/22 01/05/22 01/05/22 22:59 06:59 14:59 Other: Weight 81.647 kg GENERAL: The patient is lying in bed and is not in acute distress. CHEST: The heart rate is regular rate rhythm. No murmurs to auscultation. LUNG: Clear to auscultation bilaterally no wheezing noted throughout. Not labored breathing. ABDOMEN/GI: Bowel sounds present in all 4 quadrants. No tenderness to palpation throughout. NEUROLOGICAL: Higher mental function: The patient is awake, alert, oriented to self, place and time. Patient is following commands. No aphasia and no neglect. Cranial nerves: The pupils are round, equal and reactive to light and accommodation. Visual gustafson are full to confrontation throughout. Extraocular movement is intact no nystagmus is noted. Facial sensation is normal to touch throughout. The facial strength is moderate left lower facial weakness. Hearing is normal bilaterally to hand rub. Tongue is midline and moved [id number] without any difficulty. Subtle dysarthria. Shoulder shrug is normal bilaterally. Motor: The strength is left upper extremity is 4+ but no drift noted. Otherwise right upper is 5/5. Bilateral lower since felt spasm over the thigh but was able to lift above gravity and could not assess lower in details. Normal tone and bulk. Has tremor over the right upper with action and rest. Cerebellum: Normal finger to nose bilaterally. Sensation: Sensation is normal to touch throughout. Reflexes (right/left): 1+ throughout. Plantars are downgoing bilaterally. Results - Laboratory Findings CBC and BMP: 01/05/22 11:20 01/05/22 11:20 Abnormal Lab Findings: Abnormal Labs 01/05/22 01/05/22 11:20 11:20 APTT 21.1 L Glucose 107 H Total Bilirubin 1.5 H Assessment and Plan Assessment: Acute ischemic stroke status post IV TPA (He felt left facial weakness and left upper and in ED was felt left sided weakness including face). Hypertension Hyperlipidemia Essential tremor History of coronary artery disease status post stent History of prostate cancer History of kidney cancer Plan: A CT of the head is ordered 24 hour post-TPA (for tomorrow) CT of the head is negative for bleed then recommend starting aspirin 81mg daily and Brilinta 90mg 1 tab bid (since failed Plavix). Started Lipitor 40 mg daily at bedtime for secondary stroke prophylaxis Ordered 2-D echo. Lipid panel is ordered and is pending Will get MRI of the brain for tomorrow as well. Ordered the TSH and hemoglobin A1c. On cardiac monitoring Continue neuro checks per IV TPA protocol PT, OT and SOFTWARE ENGINEER ADVISOR are consulted Avoid systolic blood pressure more than 185 and diastolic was 110 per IV TPA. Use Labetolol IV PRN pushes if needed and if continues to be elevated start on Nicardipine drip. We'll defer the rest of the medical management to the primary team For DVT prophylaxis for now use SCDs Upon discharge, patient to follow-up with his neurologist (Dr. Aleman). The plan is discussed with patient and his (who is at bedside). Thank you for the consultation Time with Patient: Greater than 30
--- NOTE | 2022-01-05 18:15 | P.CNPUL ---
History of Present Illness Consult date: 01/05/22 Chief complaint: Acute CVA History of present illness: This patient is 81 years old and the patient was given TPA for an acute left facial and left approximately weakness and the patient will be transferred to the intensive care unit for further monitoring. The patient started having symptoms early in the morning at around 10:30 AM and she noted to open her left face and left approximately weakness. She felt her speech was also garbled. No other complaints otherwise. The patient is on a combination of aspirin 81 mg and Plavix 75 mg and she also takes Lipitor 20 mg at bedtime. She presented to the ED. Blood work was unremarkable. Her CBC was normal, her electrolytes were all within normal limits, normal renal function, normal coagulation profile, and the patient had a CAT scan of the brain that showed no acute abnormalities. T here was some nonspecific white matter changes and the patient's initial NIH score was 12. CT antigram of the head and the neck showed no evidence of any dissection of the cervical internal carotid arteries or the vertebral arteries. No evidence of any other abnormalities. The patient was given IV TPA with a bolus of 7 mg and the remaining 66 mg was infused over 1 hour. The patient received a bolus of around 11:29 AM in our facility. Symptoms started at 10:30 AM. The patient has history of prostate cancer, kidney stones and tremors in addition to hypertension and hyperlipidemia and acid reflux. The patient will be moved to the intensive care for further monitoring. A follow-up CAT scan will be ordered 24 hours post TPA administration. Echocardiogram is also in progress. Review of Systems Constitutional: Reports poor appetite, Denies chills, Denies fever Eyes: denies as per HPI, denies blurred vision, denies bulging eye, denies decreased vision, denies diplopia, denies discharge, denies dry eye, denies irritation, denies itching, denies pain, denies photophobia, denies loss of peripheral vision, denies loss of vision, denies tunnel vision/blind spots Ears: deny: decreased hearing, ear discharge, earache, tinnitus Ears, nose, mouth and throat: Reports as per HPI Breasts: absent: as per HPI, gynecomastia Cardiovascular: Reports as per HPI Respiratory: Reports as per HPI Genitourinary: Reports as per HPI Musculoskeletal: Reports as per HPI Musculoskeletal: absent: ankle pain, ankle stiffness, ankle swelling, as per HPI, elbow pain, elbow stiffness, elbow swelling, foot pain, foot stiffness, foot swelling, hand pain, hand stiffness, hand swelling, hip pain, hip stiffness, hip swelling, knee pain, knee stiffness, knee swelling, shoulder pain, shoulder stiffness, shoulder swelling, wrist pain, wrist stiffness, wrist swelling Integumentary: Reports as per HPI Neurological: Reports weakness Psychiatric: Reports as per HPI Endocrine: Reports as per HPI Hematologic/Lymphatic: Reports as per HPI Allergic/Immunologic: Reports as per HPI Past Medical History Past Medical History: Cancer, GERD/Reflux, Hyperlipidemia, Hypertension Additional Past Medical History / Comment(s): HX: PROSTATE CANCER. RENAL CALCULI. KIDNEY CANCER. ESSENTIAL TREMOR. History of Any Multi-Drug Resistant Organisms: None Reported Past Surgical History: Cholecystectomy, Heart Catheterization, Hernia Repair, Prostate Surgery Additional Past Surgical History / Comment(s): PARTIAL NEPHRECTOMY. LAMAR. CATARACT REMOVAL WITH LENS IMPLANTS Past Anesthesia/Blood Transfusion Reactions: No Reported Reaction, Motion Si ckness Past Psychological History: No Psychological Hx Reported Smoking Status: Never smoker Past Alcohol Use History: None Reported Past Drug Use History: None Reported - Past Family History Father Family Medical History: Coronary Artery Disease (CAD) Mother Family Medical History: Coronary Artery Disease (CAD) Medications and Allergies Home Medications Medication Instructions Recorded Confirmed Type Doxazosin [Cardura] 4 mg PO DAILY@0800 04/22/15 01/05/22 History Primidone [Mysoline] 50 mg PO BID@0800,1200 04/22/15 01/05/22 History Propranolol HCl [Inderal] 60 mg PO BID@0800,1200 06/27/15 01/05/22 History Atorvastatin [Lipitor] 20 mg PO HS 11/24/21 01/05/22 History Cabergoline 0.5 mg PO MO@0800 11/24/21 01/05/22 History Isosorbide Mononitrate ER [Imdur] 30 mg PO DAILY@0800 11/24/21 01/05/22 History Losartan Potassium 100 mg PO DAILY@0800 11/24/21 01/05/22 History amLODIPine [Norvasc] 5 mg PO DAILY@0800 11/24/21 01/05/22 History Nitroglycerin Sl Tabs [Nitrostat] 0.4 mg SUBLINGUAL Q5M PRN #25 tab 11/25/21 01/05/22 Rx Aspirin EC [Ecotrin Low Dose] 81 mg PO DAILY@0800 01/05/22 01/05/22 History Clopidogrel [Plavix] 75 mg PO DAILY@0800 01/05/22 01/05/22 History Allergies Allergy/AdvReac Type Severity Reaction Status Date / Time No Known Allergies Allergy Verified 01/05/22 11:06 Physical Exam Vitals: Vital Signs Temp Pulse Resp BP Pulse Ox 01/05/22 17:00 51 L 20 142/52 97 01/05/22 16:45 50 L 10 L 150/61 97 01/05/22 16:30 57 L 14 147/60 96 01/05/22 16:15 53 L 16 140/56 96 01/05/22 16:00 53 L 13 147/60 96 01/05/22 15:45 51 L 20 144/61 97 01/05/22 15:30 56 L 22 151/62 98 01/05/22 15:15 53 L 20 164/93 98 01/05/22 15:00 55 L 18 179/89 99 01/05/22 14:45 58 L 17 168/107 99 01/05/22 14:30 55 L 18 185/84 99 01/05/22 14:15 9836 F H 56 L 13 185/84 98 01/05/22 14:00 98.5 F 53 L 21 145/74 97 01/05/22 13:45 50 L 19 167/80 98 01/05/22 13:32 98.3 F 53 L 16 167/80 98 01/05/22 13:30 54 L 18 145/74 98 01/05/22 13:17 98.5 F 55 L 19 177/62 98 01/05/22 13:15 53 L 20 164/78 97 01/05/22 13:02 98.5 F 59 L 19 147/62 98 01/05/22 13:00 51 L 18 149/79 97 01/05/22 12:45 53 L 22 160/70 97 01/05/22 12:30 52 L 18 158/67 96 01/05/22 12:25 98.3 F 54 L 12 158/67 97 01/05/22 12:16 51 L 18 155/72 95 01/05/22 12:10 54 L 16 01/05/22 12:05 56 L 16 174/73 96 01/05/22 11:24 98.2 F 01/05/22 11:10 98.2 F 56 L 16 151/90 97 01/05/22 11:04 97.5 F L 55 L 18 182/73 96 Intake and Output 01/05/22 01/05/22 01/05/22 06:59 14:59 22:59 Other: Weight 81.647 kg The patient appeared well nourished and normally developed. Vital signs as documented. Head exam is unremarkable. No scleral icterus or corneal arcus noted. Neck is without jugular venous distension, thyromegaly, or carotid bruits. Carotid upstrokes are brisk bilaterally. Lungs are clear to auscultation and percussion. Cardiac exam reveals the PMI to be normally sized and situated. Rhythm is regular. First and second heart sounds normal. No murmurs, rubs or gallops. Abdominal exam reveals normal bowel sounds, no masses, no organomegaly and no aortic enlargement. Extremities are nonedematous and both femoral and pedal pulses are normal.Examination of the skin revealed no evidence of significant rashes, suspicious appearing nevi or other concerning lesions. Neurologically, the patient has been awake and alert 3, no aphasia, cranial nerves are essentially intact. The patient's strength is showing some weakness in the left face. Tongue is midline. Normal cough. Normal gag. Motor function is showing some weakness in the left upper extremity which is in order of +4/5. Rest of the motor function essentially within normal limits. The patient has some underlying essential tremors. Normal sensation. Normal reflex es. Negative Babinski's. Results - Laboratory Findings CBC and BMP: 01/05/22 11:20 01/05/22 11:20 PT/INR, D-dimer PT 10.3 sec (9.0-12.0) 01/05/22 11:20 INR 0.9 (<1.2) 01/05/22 11:20 Abnormal lab findings: Abnormal Labs 01/05/22 01/05/22 11:20 11:20 APTT 21.1 L Glucose 107 H Total Bilirubin 1.5 H - Diagnostic Findings Chest x-ray: image reviewed Assessment and Plan Plan: Acute CVA, likely an ischemic stroke post TPA administration. Patient was within the window for treatment and the patient was offered TPA and the patient will be transferred to intensive care unit for further monitoring Left-sided weakness involving left upper lobe and left face, initialize score was 12 Hypertension Hyperlipidemia Essential tremors Coronary artery disease with previous history of coronary stent insertion History of prostate cancer History of kidney stone Plan Transfer the patient in intensive care unit for further monitoring post TPA administration CAT scan of the head is to be repeated within 24 hours post TPA My of the brain within next 24-48 hours Blood pressure monitoring allowing her blood pressure not to exceed a systolic of 185 and diastolic above 110 Repeat neuro exam every 1 hour ASPIRIN and Plavix will be placed on hold Neurology consultation Continue to follow
[2022-01-05] MEDS: ATORVASTATIN 40 MG TAB PO SCH (20:48)
--- NOTE | 2022-01-05 21:30 | P.HPIM ---
History of Present Illness H&P Date: 01/05/22 Chief Complaint: Face and left arm weakness This is a 81-year-old patient who follows with Dr. Adam. Chronic stable medical conditions include hypertension, hyperlipidemia, kidney stones, essential tremor that he follows with Dr. Casillas the neurologist, history of prostate cancer 20 years ago treated with resection, CAD with stent placed on November 25 of [address] by Dr. Le. Around 645 this a.m. patient woke up was feeling fine. Around 10:30 this a.m. patient's had the sudden onset of left-sided facial weakness and weakness of the left upper extremity. Unable to lift things. He started drooling. Some structuring otherwise. Patient is on aspirin and Plavix. Patient was given TPA in the ER after initial computed tomography scan being negative. Since then slight improvement but not back to the baseline. No change in vision. No headache. No trouble walking. No trouble swallowing. Review of systems: GEN.: Tired EYES: None HEENT: As above NECK: None RESPIRATORY: None CARDIOVASCULAR: None GASTROINTESTINAL: None GENITOURINARY: None MUSCULOSKELETAL: None LYMPHATICS: None HEMATOLOGICAL: None PSYCHIATRY: None NEUROLOGICAL: As above Past medical history to include: GERD, hypertension, hyperlipidemia, prostate cancer treated with prostatectomy a bout 20 years ago, kidney stones, kidney cancer, essential tremor before by Dr. Casillas, CAD with stent on 11/25/2021, partial nephrectomy Social history: Nonsmoker nonalcoholic. . 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 Physical examination: VITAL SIGNS: 97.9, 53, 16, 149/ 68, 98% GENERAL: BMI 27.4, laying in bed awake, offered above. EYES: Pupils equal. Conjunctiva normal. HEENT: External appearance of nose and ears normal, oral cavity grossly normal. NECK: JVD not raised; masses not palpable. HEART: First and second heart sounds are normal; no edema. LUNGS: Respiratory rate normal; clear to auscultation. ABDOMEN: Soft, nontender, liver spleen not palpable, no masses palpable. PSYCH: Alert and oriented x3; mood and affect normal. MUSCULOSKELETAL:No Clubbing/cyanosis;muscles-grossly intact NEUROLOGICAL: Facial asymmetry with no slightly poor to the right. Some weakness of the muscles of the left face. Structuring speech. Following the left arm 3/5. Rest of the cranial nerves normal. Tremor LYMPHATICS: No lymph nodes palpable in the axilla and neck INVESTIGATIONS, reviewed in the clinical context: WBC 7.8 hemoglobin 14.4 platelets 155 sodium 140 potassium 3.8 creatinine 1.15 HbA1c 5.8 AST 28 ALT 17 Troponin I less than 0.012, 0.016 TSH 0.868 EKG tracing personally reviewed by me-normal sinus rhythm. Heart rate 58. LVH. Some ST segment changes. Chest x-ray film personally reviewed by me-portable. Cardiac megaly. CT brain: No acute. No specific white matter changes. CT brain angiography: Unremarkable Assessment and plan: -Acute ischemic stroke involving the left face in the left arm. Patient given TPA in the ER. Some improvement. Patient was already on aspirin and Plavix. Being changed on 2 Brilinta by neurology. Lipitor. Neuro checks. PTOT. -Acute dysarthria secondary to stroke Speech therapy -CAD with stent placed on 11/25/2021 Lipitor. Antiplatelet therapy. -Hyperlipidemia Lipitor -Essential hypertension Losartan, Norvasc -Essential tremor, patient follows with Dr. Casillas outpatient Mysoline 50 mg twice a day. cabergoline Antiplatelet agents. Lipitor. Resume home medications. Neurology consulted. PTOT. Subcu Lovenox starting tomorrow. Hold propranolol because of bradycardia. Care was discussed the patient. Questions answered. Speech therapist Past Medical History Past Medical History: Cancer, GERD/Reflux, Hyperlipidemia, Hypertension Additional Past Medical History / Comment(s): HX: PROSTATE CANCER. RENAL CALCULI. KIDNEY CANCER. ESSENTIAL TREMOR. History of Any Multi-Drug Resistant Organisms: None Reported Past Surgical History: Cholecystectomy, Heart Catheterization, Hernia Repair, Prostate Surgery Additional Past Surgical History / Comment(s): PARTIAL NEPHRECTOMY. LAMAR. CATARACT REMOVAL WITH LENS IMPLANTS Past Anesthesia/Blood Transfusion Reactions: No Reported Reaction, Motion Sickness Past Psychological History: No Psychological Hx Reported Smoking Status: Never smoker Past Alcohol Use History: None Reported Past Drug Use History: None Reported - Past Family History Father Family Medical History: Coronary Artery Disease (CAD) Mother Family Medical History: Coronary Artery Disease (CAD) Medications and Allergies Home Medications Medication Instructions Recorded Confirmed Type Doxazosin [Cardura] 4 mg PO DAILY@0800 04/22/15 01/05/22 History Primidone [Mysoline] 50 mg PO BID@0800,1200 04/22/15 01/05/22 History Propranolol HCl [Inderal] 60 mg PO BID@0800,1200 06/27/15 01/05/22 History Atorvastatin [Lipitor] 20 mg PO HS 11/24/21 01/05/22 History Cabergoline 0.5 mg PO MO@0800 11/24/21 01/05/22 History Isosorbide Mononitrate ER [Imdur] 30 mg PO DAILY@0800 11/24/21 01/05/22 History Losartan Potassium 100 mg PO DAILY@0800 11/24/21 01/05/22 History amLODIPine [Norvasc] 5 mg PO DAILY@0800 11/24/21 01/05/22 History Nitroglycerin Sl Tabs [Nitrostat] 0.4 mg SUBLINGUAL Q5M PRN #25 tab 11/25/21 01/05/22 Rx Aspirin EC [Ecotrin Low Dose] 81 mg PO DAILY@0800 01/05/22 01/05/22 History Clopidogrel [Plavix] 75 mg PO DAILY@0800 01/05/22 01/05/22 History Allergies Allergy/AdvReac Type Severity Reaction Status Date / Time No Known Allergies Allergy Verified 01/05/22 11:06 Physical Exam Vitals: Vital Signs Temp Pulse Resp BP Pulse Ox 01/05/22 19:30 53 L 32 H 149/68 98 01/05/22 19:15 57 L 7 L 162/64 98 01/05/22 19:00 54 L 21 170/80 97 01/05/22 18:45 97.9 F 55 L 23 158/74 97 01/05/22 18:30 52 L 17 194/84 97 01/05/22 18:15 98.6 F 56 L 20 148/62 98 01/05/22 18:00 51 L 21 156/61 98 01/05/22 17:45 98.6 F 51 L 22 144/56 97 01/05/22 17:30 53 L 22 125/62 01/05/22 17:15 63 11 L 137/53 97 01/05/22 17:00 51 L 20 142/52 97 01/05/22 16:45 50 L 10 L 150/61 97 01/05/22 16:30 57 L 14 147/60 96 01/05/22 16:15 53 L 16 140/56 96 01/05/22 16:00 53 L 13 147/60 96 01/05/22 15:45 51 L 20 144/61 97 01/05/22 15:30 56 L 22 151/62 98 01/05/22 15:15 53 L 20 164/93 98 01/05/22 15:00 55 L 18 179/89 99 01/05/22 14:45 58 L 17 168/107 99 01/05/22 14:30 55 L 18 185/84 99 01/05/22 14:15 9836 F H 56 L 13 185/84 98 01/05/22 14:00 98.5 F 53 L 21 145/74 97 01/05/22 13:45 50 L 19 167/80 98 01/05/22 13:32 98.3 F 53 L 16 167/80 98 01/05/22 13:30 54 L 18 145/74 98 01/05/22 13:17 98.5 F 55 L 19 177/62 98 01/05/22 13:15 53 L 20 164/78 97 01/05/22 13:02 98.5 F 59 L 19 147/62 98 01/05/22 13:00 51 L 18 149/79 97 01/05/22 12:45 53 L 22 160/70 97 01/05/22 12:30 52 L 18 158/67 96 01/05/22 12:25 98.3 F 54 L 12 158/67 97 01/05/22 12:16 51 L 18 155/72 95 01/05/22 12:10 54 L 16 01/05/22 12:05 56 L 16 174/73 96 01/05/22 11:24 98.2 F 01/05/22 11:10 98.2 F 56 L 16 151/90 97 01/05/22 11:04 97.5 F L 55 L 18 182/73 96 Intake and Output 01/05/22 01/05/22 01/05/22 06:59 14:59 22:59 Other: Weight 81.647 kg Results CBC & Chem 7: 01/05/22 11:20 01/05/22 11:20 Labs: Abnormal Lab Results - Last 24 Hours (Table) 01/05/22 01/05/22 Range/Units 11:20 11:20 APTT 21.1 L (22.0-30.0) sec Glucose 107 H (74-99) mg/dL Total Bilirubin 1.5 H (0.2-1.3) mg/dL
[2022-01-05 21:49] LABS: Glucose,Whole Blood 98 mg/dL (70-110)
[2022-01-05] MEDS ORDERED: LOSARTAN 50 MG TAB PO STA (22:26)
[2022-01-06 06:45] LABS: Basophils % (A) 1 %; Eosinophils # (A) 0.2 k/uL (0-0.7); Eosinophils % (A) 3 %; HGB 13.4 gm/dL (13.0-17.5); Lymphocytes # (A) 1.6 k/uL (1.0-4.8); Lymphocytes % (A) 25 %; MCH 31.8 pg (25.0-35.0); MCHC 33.6 g/dL (31.0-37.0); MCV 94.7 fL (80.0-100.0); Mean Platelet Volume 9.2; Monocytes # (A) 0.3 k/uL (0-1.0); Monocytes % (A) 5 %; Neutrophils % (A) 64 %; Platelet Count 148 k/uL (150-450); RBC 4.22 m/uL (4.30-5.90); RDW 13.3 % (11.5-15.5); WBC 6.2 k/uL (3.8-10.6)
[2022-01-06 07:05] LABS: African American GFR (CKD) >90 (>60 ml/min/1.73 sqM); Anion Gap 6 mmol/L; Blood Urea Nitrogen 13 mg/dL (9-20); Calcium 8.3 mg/dL (8.4-10.2); Carbon Dioxide 24 mmol/L (22-30); Chloride 109 mmol/L (98-107); Glucose 91 mg/dL (74-99); Non-African American GFR(CKD) 80 (>60 ml/min/1.73 sqM); Potassium 4.3 mmol/L (3.5-5.1); Sodium 139 mmol/L (137-145)
[2022-01-06] MEDS: ISOSORBIDE MONONITRATE ER 30 MG TAB.ER.24H PO SCH (07:55)
[2022-01-06] MEDS: LOSARTAN 50 MG TAB PO SCH (07:55)
[2022-01-06] MEDS: PRIMIDONE 50 MG TAB PO SCH ×2 (07:55→11:34)
[2022-01-06] MEDS ORDERED: DOXAZOSIN 4 MG TAB PO SCH (08:00)
--- NOTE | 2022-01-06 08:58 | P.CRDCN ---
History of Present Illness Consult date: 01/06/22 Reason for Consult (text): CVA History of present illness: The patient is an 81-year-old male who follows in the office with Dr. Le, who presented to the emergency room with new left arm weakness. The patient states he was unable to move his arm to his mouth. No left lower extremity weakness. No change in speech or confusion. Initial computed tomography scan of the brain was negative, however he was ruled in a candidate for TPA admi nistration. DIAGNOSTICS: EKG showed sinus bradycardia with first-degree AV block Chest x-ray shows no acute cardiopulmonary process CT of the brain shows no acute infarct CT of the head and neck shows no evidence of a dissection or evidence of significant stenosis Vital signs: Blood pressure 176/80, respiratory rate 20, pulse 55, SpO2 98% on room air Lab data: CBC 6.2, hemoglobin 13.4, hematocrit 40.0, platelet 148, sodium 139, potassium 4.3, BUN 13, creatinine 0.90 and the hemoglobin A1c 5.8, AST 28, ALT 17, troponin negative 3, TSH 0.86 PAST MEDICAL HISTORY: Coronary artery disease, stenting of the LAD in November 2021, dyslipidemia, hypertension REVIEW OF SYSTEMS: No fever or chills. No cough or expectoration. No diaphoresis. Patient denies headache, dizziness, blurred vision, double vision. Patient denies any stomach discomfort. No nausea, vomiting. No hematochezia. No hematemesis. Denies any black stools or blood in his stools. Denies dysuria or hematuria. No muscle weakness or numbness. Denies chest pain or chest pressure. No shortness of breath. PHYSICAL EXAMINATION: This is a 81-year-old male in no apparent distress at the time of my examination. HEENT: Head is atraumatic, normocephalic. Pupils are equal, round. Sclerae anicteric. Conjunctivae are clear. Mucous membranes of the mouth are moist. Neck is supple. There is no jugular venous distention. No carotid bruit is heard. CHEST EXAMINATION: Lungs are clear to auscultation. No chest wall tenderness is noted on palpation or with deep breathing. HEART EXAMINATION: Heart regular rate and rhythm. S1, S2 heard. Soft systolic. No gallops or rub. ABDOMEN: Soft, nontender. Bowel sounds are heard. No organomegaly noted. EXTREMITIES: 2+ peripheral pulses with no evidence of peripheral edema and no calf tenderness noted. NEUROLOGIC EXAMINATION: Patient is awake, alert and oriented x3. FINAL ASSESSMENT AND PLAN: Acute CVA, status post TPA administration Recent stenting of the LAD in November 2021, antiplatelet therapy currently being held History of coronary artery disease History of hypertension, uncontrolled on arrival PLAN: Awaiting echocardiogram results Add amlodipine at bedtime Reduce Cardura 2 mg daily Consider switching losartan to valsartan tomorrow if blood pressure continues to be elevated Further recommendations to be based on clinical course I am dictating on behalf of Dr Lorenzo Burgos's history/physical and assessment/plan. Past Medical History Past Medical History: Cancer, GERD/Reflux, Hyperlipidemia, Hypertension Additional Past Medical History / Comment(s): HX: PROSTATE CANCER. RENAL CALCULI. KIDNEY CANCER. ESSENTIAL TREMOR. History of Any Multi-Drug Resistant Organisms: None Reported Past Surgical History: Cholecystectomy, Heart Catheterization, Hernia Repair, Prostate Surgery Additional Past Surgical History / Comment(s): PARTIAL NEPHRECTOMY. LAMAR. CATARACT REMOVAL WITH LENS IMPLANTS Past Anesthesia/Blood Transfusion Reactions: No Reported Reaction, Motion Sickness Smoking Status: Never smoker - Past Family History Father Family Medical History: Coronary Artery Disease (CAD) Mother Family Medical History: Coronary Artery Disease (CAD) Medications and Allergies Home Medications Medication Instructions Recorded Confirmed Type Doxazosin [Cardura] 4 mg PO DAILY@0800 04/22/15 01/05/22 History Primidone [Mysoline] 50 mg PO BID@0800,1200 04/22/15 01/05/22 History Propranolol HCl [Inderal] 60 mg PO BID@0800,1200 06/27/15 01/05/22 History Atorvastatin [Lipitor] 20 mg PO HS 11/24/21 01/05/22 History Cabergoline 0.5 mg PO MO@0800 11/24/21 01/05/22 History Isosorbide Mononitrate ER [Imdur] 30 mg PO DAILY@0800 11/24/21 01/05/22 History Losartan Potassium 100 mg PO DAILY@0800 11/24/21 01/05/22 History amLODIPine [Norvasc] 5 mg PO DAILY@0800 11/24/21 01/05/22 History Nitroglycerin Sl Tabs [Nitrostat] 0.4 mg SUBLINGUAL Q5M PRN #25 tab 11/25/21 01/05/22 Rx Aspirin EC [Ecotrin Low Dose] 81 mg PO DAILY@0800 01/05/22 01/05/22 History Clopidogrel [Plavix] 75 mg PO DAILY@0800 01/05/22 01/05/22 History Allergies Allergy/AdvReac Type Severity Reaction Status Date / Time No Known Allergies Allergy Verified 01/05/22 11:06 Physical Exam Vitals: Vital Signs Temp Pulse Resp BP Pulse Ox 01/06/22 08:00 63 26 H 176/80 98 01/06/22 07:00 58 L 16 176/80 97 01/06/22 06:00 57 L 14 174/79 97 01/06/22 05:00 55 L 16 157/71 95 01/06/22 04:00 97.6 F 64 14 189/81 97 01/06/22 03:00 55 L 21 156/69 98 01/06/22 02:00 64 16 89/61 99 01/06/22 01:02 97.9 F 54 L 14 160/73 97 01/06/22 01:00 52 L 16 160/73 99 01/06/22 00:00 97.9 F 54 L 21 160/72 98 01/05/22 23:00 54 L 12 174/78 98 01/05/22 22:30 57 L 16 182/85 98 01/05/22 22:15 53 L 9 L 181/79 98 01/05/22 22:00 98.1 F 52 L 19 193/83 97 01/05/22 21:49 57 L 25 H 97 01/05/22 21:30 57 L 21 177/78 97 01/05/22 21:15 52 L 19 176/77 97 01/05/22 21:00 54 L 23 166/84 98 01/05/22 20:45 57 L 19 171/71 97 01/05/22 20:30 52 L 23 174/77 97 01/05/22 20:15 53 L 24 160/73 97 01/05/22 20:00 53 L 9 L 151/60 98 01/05/22 19:45 68 20 165/66 97 01/05/22 19:30 53 L 32 H 149/68 98 01/05/22 19:15 57 L 7 L 162/64 98 01/05/22 19:00 54 L 21 170/80 97 01/05/22 18:45 97.9 F 55 L 23 158/74 97 01/05/22 18:30 52 L 17 194/84 97 01/05/22 18:15 98.6 F 56 L 20 148/62 98 01/05/22 18:00 51 L 21 156/61 98 01/05/22 17:45 98.6 F 51 L 22 144/56 97 01/05/22 17:30 53 L 22 125/62 01/05/22 17:15 63 11 L 137/53 97 01/05/22 17:00 51 L 20 142/52 97 01/05/22 16:45 50 L 10 L 150/61 97 01/05/22 16:30 57 L 14 147/60 96 01/05/22 16:15 53 L 16 140/56 96 01/05/22 16:00 53 L 13 147/60 96 01/05/22 15:45 51 L 20 144/61 97 01/05/22 15:30 56 L 22 151/62 98 01/05/22 15:15 53 L 20 164/93 98 01/05/22 15:00 55 L 18 179/89 99 01/05/22 14:45 58 L 17 168/107 99 01/05/22 14:30 55 L 18 185/84 99 01/05/22 14:15 9836 F H 56 L 13 185/84 98 01/05/22 14:00 98.5 F 53 L 21 145/74 97 01/05/22 13:45 50 L 19 167/80 98 01/05/22 13:32 98.3 F 53 L 16 167/80 98 01/05/22 13:30 54 L 18 145/74 98 01/05/22 13:17 98.5 F 55 L 19 177/62 98 01/05/22 13:15 53 L 20 164/78 97 01/05/22 13:02 98.5 F 59 L 19 147/62 98 01/05/22 13:00 51 L 18 149/79 97 01/05/22 12:45 53 L 22 160/70 97 01/05/22 12:30 52 L 18 158/67 96 01/05/22 12:25 98.3 F 54 L 12 158/67 97 01/05/22 12:16 51 L 18 155/72 95 01/05/22 12:10 54 L 16 01/05/22 12:05 56 L 16 174/73 96 01/05/22 11:24 98.2 F 01/05/22 11:10 98.2 F 56 L 16 151/90 97 01/05/22 11:04 97.5 F L 55 L 18 182/73 96 Intake and Output 01/05/22 01/06/22 01/06/22 22:59 06:59 14:59 Intake Total 100 800 200 Output Total 0 1100 700 Balance 100 -300 -500 Intake: IV 100 800 200 Sodium Chloride 0.9% 1, 100 800 200 000 ml @ 100 mls/hr IV . Q10H [facility] Rx#:[id number] Output: Urine 0 1100 700 Other: Voiding Method Urinal Urinal Urinal # Voids 0 0 Weight 81.647 kg 82.5 kg Results 01/06/22 05:47 01/06/22 05:47 Cardiac Enzymes 01/05/22 01/05/22 01/05/22 Range/Units 11:20 11: 18:57 AST 28 (17-59) U/L Troponin I <0.012 0.016 (0.000-0.034) ng/mL 01/05/22 Range/Units 21:55 AST (17-59) U/L Troponin I 0.016 (0.000-0.034) ng/mL Coagulation 01/05/22 Range/Units 11:20 PT 10.3 (9.0-12.0) sec APTT 21.1 L (22.0-30.0) sec CBC 01/05/22 01/06/22 Range/Units 11:20 05:47 WBC 7.8 6.2 (3.8-10.6) k/uL RBC 4.36 4.22 L (4.30-5.90) m/uL Hgb 14.4 13.4 (13.0-17.5) gm/dL Hct 40.9 40.0 (39.0-53.0) % Plt Count 155 148 L (150-450) k/uL Comprehensive Metabolic Panel 01/05/22 01/06/22 Range/Units 11:20 05:47 Sodium 140 139 (137-145) mmol/L Potassium 3.8 4.3 (3.5-5.1) mmol/L Chloride 102 109 H (98-107) mmol/L Carbon Dioxide 29 24 (22-30) mmol/L BUN 19 13 (9-20) mg/dL Creatinine 1.15 0.90 (0.66-1.25) mg/dL Glucose 107 H 91 (74-99) mg/dL Calcium 8.9 8.3 L (8.4-10.2) mg/dL AST 28 (17-59) U/L ALT 17 (4-49) U/L Alkaline Phosphatase 75 (38-126) U/L Total Protein 7.6 (6.3-8.2) g/dL Albumin 4.6 (3.5-5.0) g/dL Current Medications Generic Name Dose Route Start Last Admin Trade Name Freq PRN Reason Stop Dose Admin Amlodipine Besylate 5 mg 01/06/22 18:00 Amlodipine 5 Mg Tab PO DAILY@1800 EDUARD Atorvastatin Calcium 40 mg 01/05/22 21:00 01/05/22 20:48 Atorvastatin 40 Mg Tab PO 40 mg HS EDUARD Administration Doxazosin Mesylate 2 mg 01/07/22 08:00 Doxazosin 2 Mg Tab PO DAILY@0800 EDUARD Sodium Chloride 1,000 mls @ 100 mls/hr 01/05/22 13:30 01/05/22 22:28 Saline 0.9% IV 100 mls/hr .Q10H EDUARD Administration Isosorbide Mononitrate 30 mg 01/06/22 08:00 01/06/22 07:55 Isosorbide Mononitrate Er 30 Mg Tab.Er.24h PO 30 mg DAILY@0800 EDUARD Administration Losartan Potassium 100 mg 01/06/22 08:00 01/06/22 07:55 Losartan 50 Mg Tab PO 100 mg DAILY@0800 EDUARD Administration Naloxone HCl 0.2 mg 01/05/22 13:11 Naloxone 0.4 Mg/Ml 1 Ml Vial IV Q2M PRN Opioid Reversal Non-Formulary Medication 0.5 mg 01/12/22 08:00 Cabergoline [Cabergoline] PO MO@0800 EDUARD Primidone 50 mg 01/06/22 08:00 01/06/22 07:55 Primidone 50 Mg Tab PO 50 mg BID@0800,1200 EDUARD Administration Intake and Output 11/01/06/22 01/06/22 22:59 06:59 14:59 Intake Total 100 800 200 Output Total 0 1100 700 Balance 100 -300 -500 Intake: IV 100 800 200 Sodium Chloride 0.9% 1, 100 800 200 000 ml @ 100 mls/hr IV . Q10H [facility] Rx#:[id number] Output: Urine 0 1100 700 Other: Voiding Method Urinal Urinal Urinal # Voids 0 0 Weight 81.647 kg 82.5 kg 01/06/22 05:47 01/06/22 05:47
[2022-01-06] MEDS ORDERED: ENOXAPARIN 40 MG/0.4 ML SYRINGE SQ SCH (09:00)
[2022-01-06] MEDS ORDERED: ASPIRIN 81 MG PO SCH (09:00)
[2022-01-06] MEDS: SODIUM CHLORIDE 0.9% 1,000 ML IV SCH ×2 (09:35→22:59)
[2022-01-06 10:22] LABS: Chol/HDL Ratio 4.44 Ratio; LDL Cholesterol,Calculated 28.8 mg/dL (0.0-131.0)
--- NOTE | 2022-01-06 10:24 | CA ---
Transthoracic Echo Report Name: Edgardo Sandy Age: 81 Gender: M : 1940 Exam Date: 01/06/2022 07:58 Exam Location: [place] [facility] Ht (in): 68 Wt (lb): 181 Ordering Physician: Eric Dahl MD Attending/Referring Phys: Reconciler Carina Rivera RDCS Procedure CPT: Indications: stroke Cardiac Hx: Technical Quality: Good Contrast 1: N/A Total Dose (mL): Contrast 2: Total Dose (mL): MEASUREMENTS (Male / Female) Normal Values 2D ECHO LV Diastolic Diameter PLAX 3.9 cm 4.2 - 5.9 / 3.9 - 5.3 cm LV Systolic Diameter PLAX 2.3 cm IVS Diastolic Thickness 1.2 cm 0.6 - 1.0 / 0.6 - 0.9 cm LVPW Diastolic Thickness 1.4 cm 0.6 - 1.0 / 0.6 - 0.9 cm LV Relative Wall Thickness 0.7 RV Internal Dim ED PLAX 3.0 cm LA Volume 65.7 cm??? 18 - 58 / 22 - 52 cm??? M-MODE Aortic Root Diameter MM 3.7 cm LA Systolic Diameter MM 4.2 cm LA Ao Ratio MM 1.1 MV E Point Septal Separation 0.9 cm AV Cusp Separation MM 1.9 cm DOPPLER AV Peak Velocity 209.6 cm/s AV Peak Gradient 17.6 mmHg AV Mean Velocity 148.0 cm/s AV Mean Gradient 9.5 mmHg AV Velocity Time Integral 49.5 cm LVOT Peak Velocity 112.7 cm/s LVOT Peak Gradient 5.1 mmHg MV Area PHT 2.7 cm??? Mitral E Point Velocity 92.6 cm/s Mitral A Point Velocity 52.3 cm/s Mitral E to A Ratio 1.8 MV Deceleration Time 284.9 ms MV E' Velocity 3.8 cm/s Mitral E to MV E' Ratio 24.1 FINDINGS Left Ventricle Mildly increased septal wall thickness. Left ventricular ejection fraction is estimated at 55%. Right Ventricle Normal right ventricular size and function. Right ventricular systolic pressure within normal limits. Right Atrium Normal right atrial size. Left Atrium Mildly increased left atrial volume. Mitral Valve Structurally normal mitral valve. Mild mitral regurgitation. Aortic Valve Mild aortic stenosis with a peak gradient of 18 mmHg and a mean gradient of 10 mmHg. Mild aortic regurgitation. Tricuspid Valve Structurally normal tricuspid valve. Mild tricuspid regurgitation. Pulmonic Valve Structurally normal pulmonic valve. Pericardium Normal pericardium. Aorta Normal size aortic root and proximal ascending aorta. CONCLUSIONS Left ventricular ejection fraction 55% Mild mitral regurgitation Mild aortic stenosis with mean gradient 10 mmHg Mild aortic regurgitation Mild tricuspid regurgitation No pericardial effusion Previewed by: Dr. David Kahn DO (Electronically Signed) Final Date: 06 January 2022 10:24
--- NOTE | 2022-01-06 10:59 | P.PN ---
Subjective Progress Note Date: 01/06/22 The patient seen at bedside and he is accompanied by his . Patient states that he feels the somewhat better today compared to yesterday and he feels he has more strength in left upper extremity. agrees that he does not have any slurring the speech but continues to have facial weakness on the left side. Otherwise denies any neurological deficits. According to the and the patient since his coronary artery disease with a stent and he continues to have shortness of breath with generalized fatigue. Objective - Vital Signs Vital signs: Vital Signs Temp 97.6 F 01/06/22 04:00 Pulse 52 L 01/06/22 09:00 Resp 12 01/06/22 09:00 BP 181/68 01/06/22 09:00 Pulse Ox 96 01/06/22 09:00 FiO2 Intake & Output 01/05/22 01/06/22 01/06/22 18:59 06:59 18:59 Intake Total 900 300 Output Total 1100 700 Balance -200 -400 Weight 81.647 kg 82.5 kg Intake: IV 900 300 Sodium Chloride 0.9% 1, 900 300 000 ml @ 100 mls/hr IV . Q10H [facility] Rx#:[id number] Output: Urine 1100 700 Other: Voiding Method Urinal Urinal # Voids 0 0 - Exam GENERAL: The patient is lying in bed and is not in acute distress. NEUROLOGICAL: Higher mental function: The patient is awake, alert, oriented to self, place and time. Patient is following commands. No aphasia and no neglect. Cranial nerves: The pupils are round, equal and reactive to light and accommodation. Visual gustafson are full to confrontation throughout. Extraocular movement is intact no nystagmus is noted. Facial sensation is normal to touch throughout. The facial strength is moderate left lower facial weakness. Hearing is normal bilaterally to hand rub. Tongue is midline and moved [id number]-pery without any difficulty. No dysarthria. Shoulder shrug is normal bilaterally. Motor: The strength is left upper extremity is left forearm flexion is 4+, left hand conformal pad former is 4+. Otherwise 5/5 throughout. Patient has tremor of the right hand and lips (baseline) Cerebellum: Normal finger to nose bilaterally. Sensation: Sensation is normal to touch throughout. Reflexes (right/left): 1+ throughout. Plantars are downgoing bilaterally. SOME OF THE WORK-UP CONSISTED OF: Lipid panel is triglyceride of 255, cholesterol 103, LDL is 28 and HDL 23 TSH is 0.868 [address]c is 5.8 CT of the head is reported as no acute intracranial process. Nonspecific white matter changes, likely secondary to chronic small vessel ischemic disease. CT angiography of the head and neck was reported as no evidence of dissection of the cervical internal carotid arteries or vertebral arteries or any evidence of significant stenosis at the carotid bifurcation. No evidence of intracranial high-grade stenosis or intracranial aneurysm. 2-D echo was reported as left ventricle ejection fraction 55%. Mild aortic stenosis. Left atrium is mildly increased left atrial volume. - Labs CBC & Chem 7: 01/06/22 05:47 01/06/22 05:47 Labs: Abnormal Lab Results - Last 24 Hours (Table) 01/05/22 01/05/22 01/06/22 Range/Units 11: 11: 05:47 RBC (4.30-5.90) m/uL Plt Count (150-450) k/uL APTT 21.1 L (22.0-30.0) sec Chloride (98-107) mmol/L Glucose 107 H (74-99) mg/dL Calcium (8.4-10.2) mg/dL Total Bilirubin 1.5 H (0.2-1.3) mg/dL Triglycerides 255.00 H (0.00-149.00) mg/dL VLDL Cholesterol, Calc 51.00 H (5.00-40.00) mg/dL HDL Cholesterol 23.20 L (40.00-60.00) mg/dL 01/06/22 01/06/22 Range/Units 05:47 05:47 RBC 4.22 L (4.30-5.90) m/uL Plt Count 148 L (150-450) k/uL APTT (22.0-30.0) sec Chloride 109 H (98-107) mmol/L Glucose (74-99) mg/dL Calcium 8.3 L (8.4-10.2) mg/dL Total Bilirubin (0.2-1.3) mg/dL Triglycerides (0.00-149.00) mg/dL VLDL Cholesterol, Calc (5.00-40.00) mg/dL HDL Cholesterol (40.00-60.00) mg/dL Assessment and Plan Assessment: Acute ischemic stroke status post IV TPA (He felt left facial and left sided weakness in ED but currently on left face and left upper extremity). Hypertension Hyperlipidemia Essential tremor History of coronary artery disease status post stent Hypertriglycerdemia History of prostate cancer History of kidney cancer Plan: Pending CT head 24hours post IV tpa. If negative for bleed then recommend starting aspirin 81mg daily and Brilinta 90mg 1 tab bid (since failed Plavix). Started Lipitor 40 mg daily at bedtime for secondary stroke prophylaxis Ordered MRI Brain. On cardiac monitoring Continue neuro checks per IV TPA protocol PT, OT and FACILITY MANAGER are consulted Recommend SBP 130-160 for today and can recommend normotensive by tomorrow. Will defer management to primary team. We'll defer the rest of the medical management to the primary team For DVT prophylaxis for now use SCDs. If Negative for bleed on CT will start on subq heparin 5000U every 8 hours. Upon discharge, patient to follow-up with his neurologist (Dr. Aleman). The plan is discussed with patient and his (who is at bedside). CT and MRI Brain: Is suggestive of acute/subacute infarct involving the lateral posterior right frontal lobe corresponding to CT earlier today. Nonspecific white matter changes, likely 60 due to small vessel ischemic disease. No hemorrhagic conversion seen on the CT. I personally reviewed the images and agree with report. Recommend to obtain a transesophageal echocardiogram and prior to discharge and event monitor for 30 days. So far the patient has been in sinus rhythm. Time with Patient: Less than 30
--- NOTE | 2022-01-06 11:11 | CT ---
EXAMINATION TYPE: CT brain wo con CT DLP: 1231.4 mGycm, Automated exposure control for dose reduction was used. DATE OF EXAM: 01/06/2022 10:56 AM COMPARISON: Prior CT Brain from 01/05/2022 . CLINICAL INDICATION:Male, 81 years old with history of Neuro deficit, acute, stroke suspected, Post T PA TECHNIQUE: Brain: Multiple axial CT images of the brain were obtained without IV contrast. Coronal and sagittal reformats reviewed. FINDINGS: Brain: Extra-axial spaces: No abnormal extra-axial fluid collections. Ventricular system: Within normal limits Cerebral parenchyma: No acute intraparenchymal hemorrhage. Loss of wilkerson-white differentiation with hy podense appearance in the lateral aspect of the right frontal lobe (series 2022, image 45). The remai florence wilkerson-white junction is well differentiated. Scattered hypoattenuating areas are seen within the white matter. Cerebellum: Unremarkable. Mass effect: No evidence of midline shift. Intracranial vasculature: Atherosclerotic calcifications of the intracranial vessels. Soft tissues: Normal. Calvarium/osseous structures: No depressed skull fracture. Paranasal sinuses and mastoid air cells: The mastoid air cells are clear. Mild mucosal thickening of the right maxillary sinus and ethmoid air cells. Visualized orbits: Bilateral aphakia IMPRESSION: 1. Evolution of right lateral frontal lobe acute/subacute infarct. No hemorrhagic conversion. 2. Nonspecific white matter changes likely related to chronic small vessel ischemic disease.
--- NOTE | 2022-01-06 12:45 | P.PN ---
Progress Note - Text Progress Note Date: 01/06/22 Chief Complaint: Face and left arm weakness This is a 81-year-old patient who follows with Dr. Adam. Chronic stable medical conditions include hypertension, hyperlipidemia, kidney stones, essential tremor that he follows with Dr. Casillas the neurologist, history of pr ostate cancer 20 years ago treated with resection, CAD with stent placed on November 25 of [address] by Dr. Le. Around 645 this a.m. patient woke up was feeling fine. Around 10:30 this a.m. patient's had the sudden onset of left-sided facial weakness and weakness of the left upper extremity. Unable to lift things. He started drooling. Some structuring otherwise. Patient is on aspirin and Plavix. Patient was given TPA in the ER after initial computed tomography scan being negative. Since then slight improvement but not back to the baseline. No change in vision. No headache. No trouble walking. No trouble swallowing. December: Patient with ICU. Sitting up in a recliner. at the bedside. Facial asymmetry present. Some left arm weakness present. No new symptoms. Speech is still a bit slow. Pending MRI. Active Medications Amlodipine Besylate (Amlodipine 5 Mg Tab) 5 mg PO DAILY@1800 [facility] Atorvastatin Calcium (Atorvastatin 40 Mg Tab) 40 mg PO HS [facility] Last Admin: 01/05/22 20:48 Dose: 40 mg Doxazosin Mesylate (Doxazosin 2 Mg Tab) 2 mg PO DAILY@0800 [facility] Sodium Chloride (Saline 0.9%) 1,000 mls @ 100 mls/hr IV .Q10H [facility] Last Admin: 01/06/22 09:35 Dose: 100 mls/hr Isosorbide Mononitrate (Isosorbide Mononitrate Er 30 Mg Tab.Er.24h) 30 mg PO DAILY@0800 [facility] Last Admin: 01/06/22 07:55 Dose: 30 mg Losartan Potassium (Losartan 50 Mg Tab) 100 mg PO DAILY@0800 [facility] Last Admin: 01/06/22 07:55 Dose: 100 mg Naloxone HCl (Naloxone 0.4 Mg/Ml 1 Ml Vial) 0.2 mg IV Q2M PRN PRN Reason: Opioid Reversal Non-Formulary Medication (Cabergoline [Cabergoline]) 0.5 mg PO MO@0800 [facility] Primidone (Primidone 50 Mg Tab) 50 mg PO BID@0800,1200 [facility] Last Admin: 01/06/22 11:34 Dose: 50 mg Past medical history to include: GERD, hypertension, hyperlipidemia, prostate cancer treated with prostatectomy about 20 years ago, kidney stones, kidney cancer, essential tremor before by Dr. Casillas, CAD with stent on 11/25/2021, partial nephrectomy Social history: Nonsmoker nonalcoholic. . 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 Physical examination: VITAL SIGNS: Afebrile, 76, 17, 133/62, 96% room air GENERAL: Up in a recliner. EYES: Pupils equal. Conjunctiva normal. HEENT: External appearance of nose and ears normal, oral cavity grossly normal. NECK: JVD not raised; masses not palpable. HEART: First and second heart sounds are normal; no edema. LUNGS: Respiratory rate normal; clear to auscultation. ABDOMEN: Soft, nontender, liver spleen not palpable, no masses palpable. PSYCH: Alert and oriented x3; mood and affect normal. MUSCULOSKELETAL:No Clubbing/cyanosis;muscles-grossly intact NEUROLOGICAL: Facial asymmetry with multiple to the right. Some weakness of the muscles of the left face. Slow speech. Yost left arm/5 Rest of the cranial nerves normal. Tremor INVESTIGATIONS, reviewed in the clinical context: 2-D echocardiogram: EF 55%. Computed tomography scan brain without contrast [January 06]: Involutional right lateral frontal lobe subacute infarct. 01/06/2022: WBC 6.2 hemoglobin 13.4 potassium 4.3 creatinine 0.9 LDL 28.8 triglyceride 255 WBC 7.8 hemoglobin 14.4 platelets 155 sodium 140 potassium 3.8 creatinine 1.15 HbA1c 5.8 AST 28 ALT 17 Troponin I less than 0.012, 0.016 TSH 0.868 EKG tracing personally reviewed by me-normal sinus rhythm. Heart rate 58. LVH. Some ST segment changes. Chest x-ray film personally reviewed by me-portable. Cardiac megaly. CT brain: No acute. No specific white matter changes. CT brain angiography: Unremarkable Assessment and plan: -Acute i right lateral frontal lobe schemic stroke involving the left face in the left arm. He received TPA in the ER. Some improvement. Patient was already on aspirin and Plavix. Being changed on 2 Brilinta by neurology. Lipitor. Neuro checks. PTOT. Ending MRI today. -Acute dysarthria secondary to stroke Speech therapy -CAD with stent placed on 11/25/2021 Lipitor. Antiplatelet therapy. -Hyperlipidemia Lipitor -Essential hypertension Losartan, Norvasc -Essential tremor, patient follows with Dr. Casillas outpatient Mysoline 50 mg twice a day. cabergoline Discussed with patient and . Pending MRI. Continue current medications. PT OT/speech therapy.
--- NOTE | 2022-01-06 14:36 | P.PN ---
Subjective Progress Note Date: 01/06/22 This patient is 81 years old and the patient was given TPA for an acute left fa cial and left approximately weakness and the patient will be transferred to the intensive care unit for further monitoring. The patient started having symptoms early in the morning at around 10:30 AM and she noted to open her left face and left approximately weakness. She felt her speech was also garbled. No other complaints otherwise. The patient is on a combination of aspirin 81 mg and Plavix 75 mg and she also takes Lipitor 20 mg at bedtime. She presented to the ED. Blood work was unremarkable. Her CBC was normal, her electrolytes were all within normal limits, normal renal function, normal coagulation profile, and the patient had a CAT scan of the brain that showed no acute abnormalities. There was some nonspecific white matter changes and the patient's initial NIH score was 12. CT antigram of the head and the neck showed no evidence of any dissection of the cervical internal carotid arteries or the vertebral arteries. No evidence of any other abnormalities. The patient was given IV TPA with a bolus of 7 mg and the remaining 66 mg was infused over 1 hour. The patient received a bolus of around 11:29 AM in our facility. Symptoms started at 10:30 AM. The patient has history of prostate cancer, kidney stones and tremors in addition to hypertension and hyperlipidemia and acid reflux. The patient will be moved to the intensive care for further monitoring. A follow-up CAT scan will be ordered 24 hours post TPA administration. Echocardiogram is also in progress. On 01/06/2022, patient is being seen for a follow-up. The patient was monitored in intensive care unit following TPA administration. For now, the patient is doing well. He continues to have weakness in the left upper extremity. There is also a facial droop with some weakness in the left face. Swallow is adequate for now. The patient remained hemodynamically stable throughout the night. The patient did not have any issues with atrial fibrillation. A follow-up CAT scan of the brain to be done today. The patient's has no chest pain. Cardiac enzymes are essentially negative. His accompanies at 6.2 with hemoglobin 15.4 and a platelet count of 148 and a sodium is at 139, BUN is 13 with a creatinine of 0.9. LDL cholesterol is 28's. Otherwise, the patient has no other complaints. There has been some limited improvement in the left facial weakness since yesterday. Speech is unchanged. He is still having some slurred speech. No new onset focal neurological deficits for now. Objective - Vital Signs Vital signs: Vital Signs Temp 97.6 F 01/06/22 04:00 Pulse 78 01/06/22 14:00 Resp 24 01/06/22 14:00 BP 122/59 01/06/22 14:00 Pulse Ox 95 01/06/22 14:00 FiO2 Intake & Output 01/05/22 01/06/22 01/06/22 18:59 06:59 18:59 Intake Total 900 1160 Output Total 1100 700 Balance -200 460 Weight 81.647 kg 82.5 kg Intake: IV 900 800 Sodium Chloride 0.9% 1, 900 800 000 ml @ 100 mls/hr IV . Q10H [facility] Rx#:[id number] Oral 360 Output: Urine 1100 700 Other: Voiding Method Urinal Urinal # Voids 0 1 - Exam The patient appeared well nourished and normally developed. Vital signs as documented. Head exam is unremarkable. No scleral icterus or corneal arcus noted. Neck is without jugular venous distension, thyromegaly, or carotid bruits. Carotid upstrokes are brisk bilaterally. Lungs are clear to auscultation and percussion. Cardiac exam reveals the PMI to be normally sized and situated. Rhythm is regular. First and second heart sounds normal. No murmurs, rubs or ga llops. Abdominal exam reveals normal bowel sounds, no masses, no organomegaly and no aortic enlargement. Extremities are nonedematous and both femoral and pedal pulses are normal.Examination of the skin revealed no evidence of significant rashes, suspicious appearing nevi or other concerning lesions. Neurologically, the patient has been awake and alert 3, no aphasia, cranial nerves are essentially intact. The patient's strength is showing some weakness in the left face. Tongue is midline. Normal cough. Normal gag. Motor function is showing some weakness in the left upper extremity which is in order of +4/5. Rest of the motor function essentially within normal limits. The patient has some underlying essential tremors. Normal sensation. Normal reflexes. Negative Babinski's. - Labs CBC & Chem 7: 01/06/22 05:47 01/06/22 05:47 Labs: Abnormal Lab Results - Last 24 Hours (Table) 01/06/22 01/06/22 01/06/22 Range/Units 05:47 05:47 05:47 RBC 4.22 L (4.30-5.90) m/uL Plt Count 148 L (150-450) k/uL Chloride 109 H (98-107) mmol/L Calcium 8.3 L (8.4-10.2) mg/dL Triglycerides 255.00 H (0.00-149.00) mg/dL VLDL Cholesterol, Calc 51.00 H (5.00-40.00) mg/dL HDL Cholesterol 23.20 L (40.00-60.00) mg/dL Assessment and Plan Plan: Acute CVA, likely an ischemic stroke post TPA administration. Patient was within the window for treatment and the patient was offered TPA and the patient will be transferred to intensive care unit for further monitoring. On today's evaluation, the patient is neurologically stable, continues to have some slurred speech and left facial weakness and some motor weakness in the left upper extremity. The patient is having a follow-up CAT scan of the brain today. Left-sided weakness involving left upper lobe and left face, initialize score was 12 Hypertension Hyperlipidemia, LDL cholesterol is low. Essential tremors Coronary artery disease with previous history of coronary stent insertion History of prostate cancer History of kidney stone Plan Proceed with a CAT scan of the brain and this will be a 24-hour follow-up Is a CAT scan of the brain is negative, we'll start the patient aspirate 1 mg by mouth daily and we will also resume the Brilinta Continue statins and the patient is currently on Lipitor 40 mg by mouth daily Neurology follow-up We'll give the patient ICU for another 24 hours. MRI of the brain is to follow Hemodynamically stable. BP is under adequate control for now. The patient can be started also on Cozaar 100 mg by mouth daily for blood pressure control and this will be used in combination with Norvasc 5 mg by mouth daily. Echo of the heart showed a normal ejection fraction of 55%. No other valvular abnormalities noted. Awaiting MRI of the brain and awaiting follow-up CAT scan of the brain.
--- NOTE | 2022-01-06 14:49 | MR ---
EXAMINATION TYPE: MR brain wo con DATE OF EXAM: 01/06/2022 2:33 PM COMPARISON: CT brain 01/06/2022, 01/05/2022, CTA head and neck 01/05/2022. CLINICAL INDICATION:Male, 81 years old with history of stroke; PHH, TECHNIQUE: Multi planar, multi sequence imaging was performed through the brain without the administr ation of intravenous contrast. FINDINGS: There is restricted diffusion demonstrated within the lateral aspect of the posterior right frontal l obe corresponding to CT finding from earlier today consistent with acute/subacute infarct. There is c orresponding T2/FLAIR hyperintensity. There is corresponding small focus of susceptibility artifact i n this region related to microhemorrhage. Mild cerebral volume loss which is age appropriate. Additio nal foci of T2 hyperintensity demonstrated within the periventricular subcortical white matter. Midli ne structures show no abnormality. The ventricular system and cisterns appear unremarkable. The bone marrow signal is within normal limits. The paranasal sinuses are unremarkable. The bilateral lenses are surgically absent. IMPRESSION: 1. Acute/subacute infarct involving the lateral posterior right frontal lobe corresponding to CT blanca ier today. 2. Nonspecific white matter changes, likely secondary to small vessel ischemic disease.
[2022-01-06] MEDS: TICAGRELOR 90 MG TAB PO SCH ×2 (14:54→20:19)
[2022-01-06] MEDS: ASPIRIN 81 MG PO SCH (14:55)
[2022-01-06] MEDS: HEPARIN SODIUM,PORCINE/PF 5,000 UNIT/0.5 ML SYRINGE SQ SCH ×2 (17:14→22:59)
[2022-01-06] MEDS: amLODIPine 5 MG TAB PO SCH (17:15)
[2022-01-06] MEDS: ATORVASTATIN 40 MG TAB PO SCH (20:19)
[2022-01-07] MEDS: SODIUM CHLORIDE 0.9% 1,000 ML IV SCH (09:54)
[2022-01-07] MEDS: ASPIRIN 81 MG PO SCH (10:05)
[2022-01-07] MEDS: DOXAZOSIN 2 MG TAB PO SCH (10:07)
[2022-01-07] MEDS: HEPARIN SODIUM,PORCINE/PF 5,000 UNIT/0.5 ML SYRINGE SQ SCH ×3 (10:07→23:32)
[2022-01-07] MEDS: ISOSORBIDE MONONITRATE ER 30 MG TAB.ER.24H PO SCH (10:07)
[2022-01-07] MEDS: LOSARTAN 50 MG TAB PO SCH (10:08)
[2022-01-07] MEDS: PRIMIDONE 50 MG TAB PO SCH ×2 (10:09→14:42)
[2022-01-07] MEDS: CLOPIDOGREL 75 MG TAB PO SCH (10:11)
[2022-01-07] MEDS: METOPROLOL TARTRATE 50 MG TAB PO SCH ×2 (10:11→20:28)
[2022-01-07] MEDS: TICAGRELOR 90 MG TAB PO SCH (10:15)
--- NOTE | 2022-01-07 11:16 | P.PN ---
Subjective The patient is an 81-year-old male who follows in the office with Dr. Le. Past medical history of coronary artery disease status post PCI to the mid LAD in November 2021, chronically occluded OM3 and mild disease in the distal left circumflex and mid RCA, hypertension, dyslipidemia. He presented to the ER with with new left arm weakness. He received TPA administration. MRI brain reported a moderate size acute/subacute infarct involving the lateral posterior right frontal lobe, small focus related to microhemorrhage. 01/07/2022 Patient seen and examined at bedside, no acute distress, patient is anxious about diagnosis. Telemetry reviewed patient in atrial fibrillation with HR 70s- low 100s, which is a new diagnosis for the patient. BP is elevated at 190/88, but with significant fluctuations. Echocardiogram revealed EF 55%, mild mitral regurgitation, mild aortic stenosis mean gradient of 10 mmHg, mild aortic regurgitation, mild tricuspid regurgitation GENERAL: Well-appearing, well-nourished and in no acute distress. NECK: Supple without JVD or thyromegaly. LUNGS: Breath sounds clear to auscultation bilaterally. Respiration equal and unlabored. No wheezes, rales or rhonchi. HEART: Regular rate and rhythm with systolic ejection murmur, No rubs or gallops. S1 and S2 heard. EXTREMITIES: Normal range of motion, no edema. No clubbing or cyanosis. Peripheral pulses intact. ASSESSMENT Acute CVA involving the lateral posterior right frontal lobe status post TPA administration, small microhemorrhage reported on MRI brain New onset paroxysmal atrial fibrillation Coronary artery disease s/p recent PCI mid LAD in November 2021 History of hypertension, uncontrolled on arrival Dyslipidemia PLAN Obtain EKG Recommend anticoagulation, discussed with neurology ok to stat Eliquis on 01/09 Recommend Plavix and Eliquis Start metoprolol tartrate 50mg BID Continue amlodipine Continue statin Further recommendations based on clinical course Nurse Practitioner note has been reviewed, I agree with a documented findings and plan of care. Patient was seen and examined. Objective - Vital Signs Vital signs: Vital Signs Temp 98.1 F 01/07/22 08:30 Pulse 86 01/07/22 08:30 Resp 18 01/07/22 08:30 BP 190/88 01/07/22 08:30 Pulse Ox 97 01/07/22 08:30 FiO2 Intake & Output 01/06/22 01/07/22 01/07/22 18:59 06:59 18:59 Intake Total 1360 600 Output Total 700 400 650 Balance 660 200 -650 Intake: IV 1000 600 Sodium Chloride 0.9% 1, 1000 600 000 ml @ 100 mls/hr IV . Q10H [facility] Rx#:[id number] Oral 360 Output: Urine 700 400 650 Other: Voiding Method Toilet Toilet # Voids 1 2 - Labs CBC & Chem 7: 01/06/22 05:47 01/06/22 05:47 Labs: Abnormal Lab Results - Last 24 Hours (Table) 01/06/22 Range/Units 05:47 Triglycerides 255.00 H (0.00-149.00) mg/dL VLDL Cholesterol, Calc 51.00 H (5.00-40.00) mg/dL HDL Cholesterol 23.20 L (40.00-60.00) mg/dL
--- NOTE | 2022-01-07 11:18 | P.PN ---
Subjective Progress Note Date: 01/07/22 The patient is seen at bedside and feels about the same. Denies any worsening of neurological issues. He is walking on his own without any issues. Per the cardiology team, his telemetry appears he is in Atrial fibrillation. Objective - Vital Signs Vital signs: Vital Signs Temp 98.1 F 01/07/22 08:30 Pulse 86 01/07/22 08:30 Resp 18 01/07/22 08:30 BP 190/88 01/07/22 08:30 Pulse Ox 97 01/07/22 08:30 FiO2 Intake & Output 01/06/22 01/07/22 01/07/22 18:59 06:59 18:59 Intake Total 1360 600 Output Total 700 400 650 Balance 660 200 -650 Intake: IV 1000 600 Sodium Chloride 0.9% 1, 1000 600 000 ml @ 100 mls/hr IV . Q10H [facility] Rx#:[id number] Oral 360 Output: Urine 700 400 650 Other: Voiding Method Toilet Toilet Toilet # Voids 1 2 - Exam GENERAL: The patient is lying in bed and is not in acute distress. NEUROLOGICAL: Higher mental function: The patient is awake, alert, oriented to self, place and time. Patient is following commands. No aphasia and no neglect. Cranial nerves: The pupils are round, equal and reactive to light and accommodation. Visual gustafson are full to confrontation throughout. Extraocular movement is intact no nystagmus is noted. Facial sensation is normal to touch throughout. The facial strength is moderate left lower facial weakness. Hearing is normal bilaterally to hand rub. Tongue is midline and moved [id number] without any difficulty. No dysarthria. Shoulder shrug is normal bilaterally. Motor: The strength is left upper extremity is left forearm flexion is 4+, left hand insurance compliance analyst is 4+. Otherwise 5/5 throughout. Patient has tremor of the right hand and lips (baseline) Cerebellum: Normal finger to nose bilaterally. Sensation: Sensation is normal to touch throughout. Reflexes (right/left): 1+ throughout. Plantars are downgoing bilaterally. SOME OF THE WORK-UP CONSISTED OF: Lipid panel is triglyceride of 255, cholesterol 103, LDL is 28 and HDL 23 TSH is 0.868 [address] is 5.8 CT of the head is reported as no acute intracranial process. Nonspecific white matter changes, likely secondary to chronic small vessel ischemic disease. CT angiography of the head and neck was reported as no evidence of dissection of the cervical internal carotid arteries or vertebral arteries or any evidence of significant stenosis at the carotid bifurcation. No evidence of intracranial high-grade stenosis or intracranial aneurysm. 2-D echo was reported as left ventricle ejection fraction 55%. Mild aortic stenosis. Left atrium is mildly increased left atrial volume. CT and MRI Brain: Is suggestive of acute/subacute infarct involving the lateral posterior right frontal lobe corresponding to CT earlier today. Nonspecific white matter changes, likely due to small vessel ischemic disease. No hemorrhagic conversion seen on the CT. I personally reviewed the images and agree with report. - Labs CBC & Chem 7: 01/06/22 05:47 01/06/22 05:47 Assessment and Plan Assessment: Acute ischemic stroke (right frontal) status post IV TPA (He felt left facial and left sided weakness in ED but currently on left face and left upper extremity). Etiology is cardioembolic (has atrial fibrillation) New onset Atrial fibrillation Hypertension Hyperlipidemia Essential tremor History of coronary artery disease status post stent Hypertriglycerdemia History of prostate cancer History of kidney cancer Plan: For new onset atrial fibrillation, recommend start anticoagulation within 2 days from today since has new onset stroke (to avoid hemorrhagic conversion). Cardiology team will start him on Eliquis. He was switched back on his home Plavix 75mg daily. From neurological perspective once started on Eliquis he does not need ASA and will defer that to Cardiology and primary team. Cardiology did not feel LIBIA is needed since the source is Atrial fibrillation. PT, OT and OPTICIAN APPRENTICE are consulted Recommend normotensive and will defer management to primary team. We'll defer the rest of the medical management to the primary team For DVT prophylaxis On subq heparin 5000U every 8 hours. Upon discharge, patient to follow-up with his neurologist (Dr. Aleman). The plan is discussed with patient and cardiology team. Dr. Fitzpatrick will start neurology service tomorrow A.M. Time with Patient: Less than 30
[2022-01-07] MEDS ORDERED: ACETAMINOPHEN TAB 325 MG TAB PO PRN (14:43)
--- NOTE | 2022-01-07 15:25 | P.PN ---
Progress Note - Text Progress Note Date: 01/07/22 Chief Complaint: Face and left arm weakness This is a 81-year-old patient who follows with Dr. Adam. Chronic stable medical conditions include hypertension, hyperlipidemia, kidney stones, essential tremor that he follows with Dr. Casillas the neurologist, history of pr ostate cancer 20 years ago treated with resection, CAD with stent placed on November 25 of [address] Le. Around 645 this a.m. patient woke up was feeling fine. Around 10:30 this a.m. patient's had the sudden onset of left-sided facial weakness and weakness of the left upper extremity. Unable to lift things. He started drooling. Some structuring otherwise. Patient is on aspirin and Plavix. Patient was given TPA in the ER after initial computed tomography scan being negative. Since then slight improvement but not back to the baseline. No change in vision. No headache. No trouble walking. No trouble swallowing. December: Patient with ICU. Sitting up in a recliner. at the bedside. Facial asymmetry present. Some left arm weakness present. No new symptoms. Speech is still a bit slow. Pending MRI. 01/07/2022: Patient is gone into atrial fibrillation. Started on Lopressor. Patient be started eliquis in 48 hours per neurology. Patient neuro deficits noted different from yesterday. Discussed with patient. Active Medications Acetaminophen (Acetaminophen Tab 325 Mg Tab) 650 mg PO Q6HR PRN PRN Reason: Fever and/ or Pain Amlodipine Besylate (Amlodipine 5 Mg Tab) 5 mg PO DAILY@1800 COUNTS INCLUDE 234 BEDS AT THE [facility] Last Admin: 01/06/22 17:15 Dose: 5 mg Aspirin (Aspirin 81 Mg) 81 mg PO DAILY COUNTS INCLUDE 234 BEDS AT THE [facility] Last Admin: 01/07/22 10:05 Dose: Not Given Atorvastatin Calcium (Atorvastatin 40 Mg Tab) 40 mg PO HS COUNTS INCLUDE 234 BEDS AT THE [facility] Last Admin: 01/06/22 20:19 Dose: 40 mg Clopidogrel Bisulfate (Clopidogrel 75 Mg Tab) 75 mg PO DAILY COUNTS INCLUDE 234 BEDS AT THE [facility] Last Admin: 01/07/22 10:11 Dose: 75 mg Doxazosin Mesylate (Doxazosin 2 Mg Tab) 2 mg PO DAILY@0800 COUNTS INCLUDE 234 BEDS AT THE [facility] Last Admin: 01/07/22 10:07 Dose: 2 mg Heparin Sodium (Porcine) (Heparin Sodium,Porcine/Pf 5,000 Unit/0.5 Ml Syringe) 5,000 unit SQ Q8HR COUNTS INCLUDE 234 BEDS AT THE [facility] Last Admin: 01/07/22 10:07 Dose: 5,000 unit Isosorbide Mononitrate (Isosorbide Mononitrate Er 30 Mg Tab.Er.24h) 30 mg PO DAILY@0800 COUNTS INCLUDE 234 BEDS AT THE [facility] Last Admin: 01/07/22 10:07 Dose: 30 mg Losartan Potassium (Losartan 50 Mg Tab) 100 mg PO DAILY@0800 COUNTS INCLUDE 234 BEDS AT THE [facility] Last Admin: 01/07/22 10:08 Dose: 100 mg Metoprolol Tartrate (Metoprolol Tartrate 50 Mg Tab) 50 mg PO BID COUNTS INCLUDE 234 BEDS AT THE [facility] Last Admin: 01/07/22 10:11 Dose: 50 mg Naloxone HCl (Naloxone 0.4 Mg/Ml 1 Ml Vial) 0.2 mg IV Q2M PRN PRN Reason: Opioid Reversal Non-Formulary Medication (Cabergoline [Cabergoline]) 0.5 mg PO MO@0800 COUNTS INCLUDE 234 BEDS AT THE [facility] Primidone (Primidone 50 Mg Tab) 50 mg PO BID@0800,1200 COUNTS INCLUDE 234 BEDS AT THE [facility] Last Admin: 01/07/22 14:42 Dose: 50 mg Past medical history to include: GERD, hypertension, hyperlipidemia, prostate cancer treated with prostatectomy about 20 years ago, kidney stones, kidney cancer, essential tremor before by Dr. Casillas, CAD with stent on 11/25/2021, partial nephrectomy Social history: Nonsmoker nonalcoholic. . 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 Physical examination: VITAL SIGNS: 98.5, 62, 17, 101/56, 98% room air GENERAL: Sitting up, comfortable EYES: Pupils equal. Conjunctiva normal. HEENT: External appearance of nose and ears normal, oral cavity grossly normal. NECK: JVD not raised; masses not palpable. HEART: First and second heart sounds are normal; no edema. LUNGS: Respiratory rate normal; clear to auscultation. ABDOMEN: Soft, nontender, liver spleen not palpable, no masses palpable. PSYCH: Alert and oriented x3; mood and affect normal. NEUROLOGICAL: Facial asymmetry with multiple to the right. Some weakness of the muscles of the left face. Slow speech. Power left arm4/5 Rest of the cranial nerves normal. Tremor INVESTIGATIONS, reviewed in the clinical context: MRI brain: 2-D echocardiogram: EF 55%. Infarct involving the lateral posterior right frontal lobe.He white matter changes. Computed tomography scan brain without contrast [January 06]: Involutional right lateral frontal lobe subacute infarct. 01/06/2022: WBC 6.2 hemoglobin 13.4 potassium 4.3 creatinine 0.9 LDL 28.8 triglyceride 255 WBC 7.8 hemoglobin 14.4 platelets 155 sodium 140 potassium 3.8 creatinine 1.15 HbA1c 5.8 AST 28 ALT 17 Troponin I less than 0.012, 0.016 TSH 0.868 EKG tracing personally reviewed by me-normal sinus rhythm. Heart rate 58. LVH. Some ST segment changes. Chest x-ray film personally reviewed by me-portable. Cardiac megaly. CT brain: No acute. No specific white matter changes. 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 He received TPA in the ER. Some improvement. MRI findings as per computed tomography scan. He eliquis to be started in 48 hours. Lipitor. -New onset of atrial fibrillation. Lopressor -Acute dysarthria secondary to stroke Speech therapy -CAD with stent placed on 11/25/2021 Lipitor. Aspirin Plavix. -Hyperlipidemia Lipitor -Essential hypertension Losartan, Norvasc -Essential tremor, patient follows with Dr. Casillas outpatient Mysoline 50 mg twice a day. cabergoline Patient started eliquis. In 48 hours per neurology. Aspirin Plavix. Lopressor started by cardiology. Discussed with patient.
--- NOTE | 2022-01-07 16:59 | P.PN ---
Subjective Progress Note Date: 01/07/22 This patient is 81 years old and the patient was given TPA for an acute left fa cial and left approximately weakness and the patient will be transferred to the intensive care unit for further monitoring. The patient started having symptoms early in the morning at around 10:30 AM and she noted to open her left face and left approximately weakness. She felt her speech was also garbled. No other complaints otherwise. The patient is on a combination of aspirin 81 mg and Plavix 75 mg and she also takes Lipitor 20 mg at bedtime. She presented to the ED. Blood work was unremarkable. Her CBC was normal, her electrolytes were all within normal limits, normal renal function, normal coagulation profile, and the patient had a CAT scan of the brain that showed no acute abnormalities. There was some nonspecific white matter changes and the patient's initial NIH score was 12. CT antigram of the head and the neck showed no evidence of any dissection of the cervical internal carotid arteries or the vertebral arteries. No evidence of any other abnormalities. The patient was given IV TPA with a bolus of 7 mg and the remaining 66 mg was infused over 1 hour. The patient received a bolus of around 11:29 AM in our facility. Symptoms started at 10:30 AM. The patient has history of prostate cancer, kidney stones and tremors in addition to hypertension and hyperlipidemia and acid reflux. The patient will be moved to the intensive care for further monitoring. A follow-up CAT scan will be ordered 24 hours post TPA administration. Echocardiogram is also in progress. On 01/06/2022, patient is being seen for a follow-up. The patient was monitored in intensive care unit following TPA administration. For now, the patient is doing well. He continues to have weakness in the left upper extremity. There is also a facial droop with some weakness in the left face. Swallow is adequate for now. The patient remained hemodynamically stable throughout the night. The patient did not have any issues with atrial fibrillation. A follow-up CAT scan of the brain to be done today. The patient's has no chest pain. Cardiac enzymes are essentially negative. His accompanies at 6.2 with hemoglobin 15.4 and a platelet count of 148 and a sodium is at 139, BUN is 13 with a creatinine of 0.9. LDL cholesterol is 28's. Otherwise, the patient has no other complaints. There has been some limited improvement in the left facial weakness since yesterday. Speech is unchanged. He is still having some slurred speech. No new onset focal neurological deficits for now. On 01/04/2022, no specific complaints and the patient continues to have some limited amount of weakness in the left upper extremity. Speech is still slow. No other new complaints otherwise for now. The patient went into atrial fibrillation. He was started on Lopressor. The patient will be also started on anticoagulation with Eliquis the next 48 hours. The MRI of the brain also showed acute/subacute infarct of the left posterior right frontal lobe and there is some nonspecific white matter changes. For now,for now, the patient is on a combination of aspirin and Plavix. Objective - Vital Signs Vital signs: Vital Signs Temp 98.5 F 01/07/22 11:34 Pulse 62 01/07/22 11:34 Resp 17 01/07/22 11:34 BP 95/51 01/07/22 11:34 Pulse Ox 98 01/07/22 11:34 FiO2 Intake & Output 01/06/22 01/07/22 01/07/22 18:59 06:59 18:59 Intake Total 1360 600 Output Total 700 400 650 Balance 660 200 -650 Intake: IV 1000 600 Sodium Chloride 0.9% 1, 1000 600 000 ml @ 100 mls/hr IV . Q10H EDUARD Rx#:[id number] Oral 360 Output: Urine 700 400 650 Other: Voiding Method Toilet Toilet Toilet # Voids 1 2 - Exam The patient appeared well nourished and normally developed. Vital signs as documented. Head exam is unremarkable. No scleral icterus or corneal arcus noted. Neck is without jugular venous distension, thyromegaly, or carotid bruits. Carotid upstrokes are brisk bilaterally. Lungs are clear to auscultation and percussion. Cardiac exam reveals the PMI to be normally sized and situated. Rhythm is regular. First and second heart sounds normal. No murmurs, rubs or gallops. Abdominal exam reveals normal bowel sounds, no masses, no organomegaly and no aortic enlargement. Extremities are nonedematous and both femoral and pedal pulses are normal.Examination of the skin revealed no evidence of sig nificant rashes, suspicious appearing nevi or other concerning lesions. Neurologically, the patient has been awake and alert 3, no aphasia, cranial nerves are essentially intact. The patient's strength is showing some weakness in the left face. Tongue is midline. Normal cough. Normal gag. Motor function is showing some weakness in the left upper extremity which is in order of +4/5. Rest of the motor function essentially within normal limits. The patient has some underlying essential tremors. Normal sensation. Normal reflexes. Negative Babinski's. - Labs CBC & Chem 7: 01/06/22 05:47 01/06/22 05:47 Assessment and Plan Plan: Acute CVA, likely an iembolic stroke post TPA administration. Patient was within the window for treatment and the patient was offered TPA and the patient will be transferred to intensive care unit for further monitoring. On today's evaluation, the patient is neurologically stable, continues to have some slurred speech and left facial weakness and some motor weakness in the left upper extremity. The patient had an MRI of the brain that showed evidence of a CVA. The patient also went into atrial fibrillation and the rate is controlled for now. Left-sided weakness involving left upper lobe and left face, and the patient's MRI of the brain confirmed presence of acute/subacute CVA new-onset atrial fibrillation Hypertension Hyperlipidemia, LDL cholesterol is low. Essential tremors Coronary artery disease with previous history of coronary stent insertion History of prostate cancer History of kidney stone Plan continue aspirin and Plavix and the patient may need to go on antibiotics with Eliquis at the later stage probably within next 48 hours Patient is on metoprolol for rate control Repeat CAT scan of the brain and MRI of the brain was noted Echo of the heart was noted The patient is on statins Continue follow-up with neurology and pulmonary and critical care services will sign off the case Proceed with a CAT scan of the brain and this will be a 24-hour follow-up
[2022-01-07] MEDS: amLODIPine 5 MG TAB PO SCH (17:53)
[2022-01-07] MEDS: ATORVASTATIN 40 MG TAB PO SCH (20:28)
[2022-01-08] MEDS: HEPARIN SODIUM,PORCINE/PF 5,000 UNIT/0.5 ML SYRINGE SQ SCH ×3 (09:08→23:59)
[2022-01-08] MEDS: METOPROLOL TARTRATE 50 MG TAB PO SCH ×2 (09:08→19:56)
[2022-01-08] MEDS: DOXAZOSIN 2 MG TAB PO SCH (09:08)
[2022-01-08] MEDS: ASPIRIN 81 MG PO SCH (09:08)
[2022-01-08] MEDS: CLOPIDOGREL 75 MG TAB PO SCH (09:08)
[2022-01-08] MEDS: ISOSORBIDE MONONITRATE ER 30 MG TAB.ER.24H PO SCH (09:08)
[2022-01-08] MEDS: LOSARTAN 50 MG TAB PO SCH (09:10)
[2022-01-08] MEDS: PRIMIDONE 50 MG TAB PO SCH ×2 (09:10→12:17)
--- NOTE | 2022-01-08 11:30 | P.PN ---
Subjective The patient is an 81-year-old male who follows in the office with Dr. Le. Past medical history of coronary artery disease status post PCI to the mid LAD in November 2021, chronically occluded OM3 and mild disease in the distal left circumflex and mid RCA, hypertension, dyslipidemia. He presented to the ER with with new left arm weakness. He received TPA administration. MRI brain reported a moderate size acute/subacute infarct involving the lateral posterior right frontal lobe, small focus related to microhemorrhage. 01/07/2022 Patient seen and examined at bedside, no acute distress, patient is anxious about diagnosis. Telemetry reviewed patient in atrial fibrillation with HR 70s- low 100s, which is a new diagnosis for the patient. BP is elevated at 190/88, but with significant fluctuations. Echocardiogram revealed EF 55%, mild mitral regurgitation, mild aortic stenosis mean gradient of 10 mmHg, mild aortic regurgitation, mild tricuspid regurgitation 01/08 Patient seen and examined. Patient's heart rates currently in the 50s and in sinus. Denies palpitations. Plan for starting Eliquis 01/09 GENERAL: Well-appearing, well-nourished and in no acute distress. NECK: Supple without JVD or thyromegaly. LUNGS: Breath sounds clear to auscultation bilaterally. Respiration equal and unlabored. No wheezes, rales or rhonchi. HEART: Regular rate and rhythm with systolic ejection murmur, No rubs or gallops. S1 and S2 heard. EXTREMITIES: Normal range of motion, no edema. No clubbing or cyanosis. Peripheral pulses intact. ASSESSMENT Acute CVA involving the lateral posterior right frontal lobe status post TPA administration, small microhemorrhage reported on MRI brain New onset paroxysmal atrial fibrillation Coronary artery disease s/p recent PCI mid LAD in November 2021 History of hypertension, uncontrolled on arrival Dyslipidemia PLAN Start Eliquis on 01/09 per neuro Continue Plavix and Eliquis on DC BP's extremely labile and likely related to recent stroke. Continue with current regimen. No further recommendations from a cardiology standpoint. Please call with any questions Objective - Vital Signs Vital signs: Vital Signs Temp 98.1 F 01/08/22 09:15 Pulse 54 L 01/08/22 11:20 Resp 17 01/08/22 11:20 BP 144/84 01/08/22 11:20 Pulse Ox 97 01/08/22 11:20 FiO2 Intake & Output 01/07/22 01/08/22 01/08/22 18:59 06:59 18:59 Intake Total 118 Output Total 650 Balance -650 118 Intake: Oral 118 Output: Urine 650 Other: Voiding Method Toilet Toilet Toilet # Voids 3 1 1 - Labs CBC & Chem 7: 01/06/22 05:47 01/06/22 05:47
--- NOTE | 2022-01-08 13:11 | P.PN ---
Subjective Progress Note Date: 01/08/22 Patient initially seen by Dr. Eric Dahl. Please refer to his note for details. Patient is an 81-year-old male presented with right frontal stroke. Patient received IV TPA for stroke. Patient was found to have new onset atrial fibrillation. Patient currently on dual antiplatelet medication. Dr. Dahl has recommended to start anticoagulation in 48 hours. Patient states that he is doing much better. He continues to have left facial droop and occasionally stutters a little. He has a very minimal headache. Denies any focal weakness in the extremities. Patient does have history of essential tremors. Telemetry monitoring showing sinus rhythm, with sinus bradycardia in the 50s. SOME OF THE WORK-UP CONSISTED OF: Lipid panel is triglyceride of 255, cholesterol 103, LDL is 28 and HDL 23 TSH is 0.868 Hemoglobin [address]c is 5.8 CT of the head is reported as no acute intracranial process. Nonspecific white matter changes, likely secondary to chronic small vessel ischemic disease. CT angiography of the head and neck was reported as no evidence of dissection of the cervical internal carotid arteries or vertebral arteries or any evidence of significant stenosis at the carotid bifurcation. No evidence of intracranial high-grade stenosis or intracranial aneurysm. 2-D echo was reported as left ventricle ejection fraction 55%. Mild aortic stenosis. Left atrium is mildly increased left atrial volume. CT and MRI Brain: Is suggestive of acute/subacute infarct involving the lateral posterior right frontal lobe corresponding to CT earlier today. Nonspecific white matter changes, likely due to small vessel ischemic disease. No hemorrhagic conversion seen on the CT. I personally reviewed the images and agree with report. Objective - Vital Signs Vital signs: Vital Signs Temp 98.1 F 01/08/22 09:15 Pulse 56 L 01/08/22 09:15 Resp 17 01/08/22 09:15 BP 190/78 01/08/22 09:15 Pulse Ox 98 01/08/22 09:15 FiO2 Intake & Output 01/07/22 01/08/22 01/08/22 18:59 06:59 18:59 Intake Total 118 Output Total 650 Balance -650 118 Intake: Oral 118 Output: Urine 650 Other: Voiding Method Toilet Toilet # Voids 3 1 1 - Exam Patient is alert and awake. Speech and language functions are normal. Mentation is normal. Cranial nerves significant for significant left facial weakness, central type. He is able to elevate his forehead very well. His tongue protrudes very slightly to the left. Other cranial nerves are normal. Visual gustafson are full on confrontation with no neglect on double simultaneous stimulation. On muscle strength testing, patient has mild left pronation, no drift. The strength otherwise is completely normal in the arms and legs distally and proximally. Sensation is equal bilaterally, with no neglect on double simultaneous stimulation. No ataxia for [id number], although he has mild intention tremor for [id number] testing bilaterally. - Labs CBC & Chem 7: 01/06/22 05:47 01/06/22 05:47 Assessment and Plan Assessment: Acute ischemic stroke (right frontal) status post IV TPA (He felt left facial and left sided weakness in ED but currently on left face and left upper extremity). Etiology is cardioembolic (has atrial fibrillation) New onset paroxysmal Atrial fibrillation Hypertension Hyperlipidemia Essential tremor History of coronary artery disease status post stent Hypertriglycerdemia History of prostate cancer History of kidney cancer Plan: MRI of the brain 01/06/2022 revealed acute/subacute infarct involving the lateral posterior right frontal lobe. Also reported as small focus of susceptibility artifact in this region related to microhemorrhage. I personally reviewed MRI, agree with the findings. The microhemorrhage reported For new onset atrial fibrillation, per Dr. Dahl recommendation, to start anticoagulation within 2 days from yesterday(01/07/2022) since has new onset stroke (to avoid hemorrhagic conversion). Cardiology team will start him on Eliquis on 01/09/2022. He was switched back on his home Plavix 75mg daily. From neurological perspective once started on Eliquis he does not need ASA and will defer that to Cardiology and primary team. Cardiology did not feel LIBIA is needed since the source is Atrial fibrillation. PT, OT and MEDIA SALES CONSULTANT are consulted Recommend normotensive and will defer management to primary team. We'll defer the rest of the medical management to the primary team For DVT prophylaxis On subq heparin 5000U every 8 hours. Upon discharge, patient to follow-up with his neurologist (Dr. Aleman).
--- NOTE | 2022-01-08 13:17 | P.PN ---
Progress Note - Text Progress Note Date: 01/08/22 Chief Complaint: Face and left arm weakness This is a 81-year-old patient who follows with Dr. Adam. Chronic stable medical conditions include hypertension, hyperlipidemia, kidney stones, essential tremor that he follows with Dr. Casillas the neurologist, history of pr ostate cancer 20 years ago treated with resection, CAD with stent placed on November 25 of [address] by Dr. Le. Around 645 this a.m. patient woke up was feeling fine. Around 10:30 this a.m. patient's had the sudden onset of left-sided facial weakness and weakness of the left upper extremity. Unable to lift things. He started drooling. Some structuring otherwise. Patient is on aspirin and Plavix. Patient was given TPA in the ER after initial computed tomography scan being negative. Since then slight improvement but not back to the baseline. No change in vision. No headache. No trouble walking. No trouble swallowing. December: Patient with ICU. Sitting up in a recliner. at the bedside. Facial asymmetry present. Some left arm weakness present. No new symptoms. Speech is still a bit slow. Pending MRI. 01/07/2022: Patient is gone into atrial fibrillation. Started on Lopressor. Patient be started eliquis in 48 hours per neurology. Patient neuro deficits noted different from yesterday. Discussed with patient. 01/08/2022: Stable. Remains in atrial fibrillation. Rate controlled. Discussed with the patient at the bedside. Speech stable. Left arm monitor worker better. Active Medications Acetaminophen (Acetaminophen Tab 325 Mg Tab) 650 mg PO Q6HR PRN PRN Reason: Fever and/ or Pain Last Admin: 01/07/22 16:00 Dose: 650 mg Amlodipine Besylate (Amlodipine 5 Mg Tab) 5 mg PO DAILY@1800 [facility] Last Admin: 01/07/22 17:53 Dose: 5 mg Aspirin (Aspirin 81 Mg) 81 mg PO DAILY [facility] Last Admin: 01/08/22 09:08 Dose: 81 mg Atorvastatin Calcium (Atorvastatin 40 Mg Tab) 40 mg PO HS [facility] Last Admin: 01/07/22 20:28 Dose: 40 mg Clopidogrel Bisulfate (Clopidogrel 75 Mg Tab) 75 mg PO DAILY [facility] Last Admin: 01/08/22 09:08 Dose: 75 mg Doxazosin Mesylate (Doxazosin 2 Mg Tab) 2 mg PO DAILY@0800 [facility] Last Admin: 01/08/22 09:08 Dose: 2 mg Heparin Sodium (Porcine) (Heparin Sodium,Porcine/Pf 5,000 Unit/0.5 Ml Syringe) 5,000 unit SQ Q8HR [facility] Last Admin: 01/08/22 09:08 Dose: 5,000 unit Isosorbide Mononitrate (Isosorbide Mononitrate Er 30 Mg Tab.Er.24h) 30 mg PO DAILY@0800 [facility] Last Admin: 01/08/22 09:08 Dose: 30 mg Losartan Potassium (Losartan 50 Mg Tab) 100 mg PO DAILY@0800 [facility] Last Admin: 01/08/22 09:10 Dose: 100 mg Metoprolol Tartrate (Metoprolol Tartrate 50 Mg Tab) 50 mg PO BID [facility] Last Admin: 01/08/22 09:08 Dose: 50 mg Naloxone HCl (Naloxone 0.4 Mg/Ml 1 Ml Vial) 0.2 mg IV Q2M PRN PRN Reason: Opioid Reversal Non-Formulary Medication (Cabergoline [Cabergoline]) 0.5 mg PO MO@0800 [facility] Primidone (Primidone 50 Mg Tab) 50 mg PO BID@0800,1200 [facility] Last Admin: 01/08/22 12:17 Dose: 50 mg Past medical history to include: GERD, hypertension, hyperlipidemia, prostate cancer treated with prostatectomy about 20 years ago, kidney stones, kidney cancer, essential tremor before by Dr. Casillas, CAD with stent on 11/25/2021, partial nephrectomy Social history: Nonsmoker nonalcoholic. . 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 Physical examination: VITAL SIGNS: 8.1, 56, 17, 144/84, 97% room air GENERAL: Sitting up, comfortable EYES: Pupils equal. Conjunctiva normal. HEENT: External appearance of nose and ears normal, oral cavity grossly normal. NECK: JVD not raised; masses not palpable. HEART: First and second heart sounds are normal; no edema. LUNGS: Respiratory rate normal; clear to auscultation. ABDOMEN: Soft, nontender, liver spleen not palpable, no masses palpable. PSYCH: Alert and oriented x3; mood and affect normal. NEUROLOGICAL: Facial asymmetry with mouth slightly pulled to the right. Some weakness of the muscles of the left face. Speech better. Power left arm4/5 Rest of the cranial nerves normal. Tremor INVESTIGATIONS, reviewed in the clinical context: MRI brain:Infarct involving the lateral posterior right frontal lobe.chronic white matter changes. 2-D echocardiogram: EF 55%. Computed tomography scan brain without contrast [January 06]: Involutional right lateral frontal lobe subacute infarct. 01/06/2022: WBC 6.2 hemoglobin 13.4 potassium 4.3 creatinine 0.9 LDL 28.8 triglyceride 255 WBC 7.8 hemoglobin 14.4 platelets 155 sodium 140 potassium 3.8 creatinine 1.15 HbA1c 5.8 AST 28 ALT 17 Troponin I less than 0.012, 0.016 TSH 0.868 EKG tracing personally reviewed by me-normal sinus rhythm. Heart rate 58. LVH. Some ST segment changes. Chest x-ray film personally reviewed by me-portable. Cardiac megaly. CT brain: No acute. No specific white matter changes. 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 He received TPA in the ER. Some improvement. MRI findings as per computed tomography scan. He eliquis to be started tomorrow Lipitor. -New onset of atrial fibrillation.: Rate controlled Lopressor. Started eliquis tomorrow -Acute dysarthria secondary to stroke: Better Speech therapy -CAD with stent placed on 11/25/2021 Lipitor. Aspirin Plavix. -Hyperlipidemia Lipitor -Essential hypertension Losartan, Norvasc -Essential tremor, patient follows with Dr. Casillas outpatient Mysoline 50 mg twice a day. cabergoline Discussed with patient and . Start eliquis tomorrow.
[2022-01-08] MEDS: amLODIPine 5 MG TAB PO SCH (16:48)
[2022-01-08] MEDS: ATORVASTATIN 40 MG TAB PO SCH (19:57)
[2022-01-09 05:20] VITALS: RESP 18
[2022-01-09] MEDS ORDERED: APIXABAN 5 MG TAB PO SCH (09:00)
[2022-01-09] MEDS: CLOPIDOGREL 75 MG TAB PO SCH (09:44)
[2022-01-09] MEDS: ISOSORBIDE MONONITRATE ER 30 MG TAB.ER.24H PO SCH (09:44)
[2022-01-09] MEDS: ASPIRIN 81 MG PO SCH (09:44)
[2022-01-09] MEDS: LOSARTAN 50 MG TAB PO SCH (09:45)
[2022-01-09] MEDS: PRIMIDONE 50 MG TAB PO SCH ×2 (09:45→13:20)
[2022-01-09] MEDS: DOXAZOSIN 2 MG TAB PO SCH (09:45)
[2022-01-09] MEDS: METOPROLOL TARTRATE 50 MG TAB PO SCH (09:47)
[2022-01-09 13:20] VITALS: PULSE 53
[2022-01-09 16:59] VITALS: BP 175/76; TEMP 97.9
[2022-01-09] MEDS: amLODIPine 5 MG TAB PO SCH (17:00)
--- NOTE | 2022-01-09 20:45 | P.DS ---
Providers Date of admission: 01/05/22 13:04 Expected date of discharge: 01/09/22 Attending physician: Feliciano Sellers Consults: 01/05/22 13:05 Consult Physician Urgent Consulting Provider: Eric Dahl Consult Reason/Comments: acute cva s/p tpa Do you want consulting provider notified?: Yes 01/05/22 13:11 Consult Physician Stat Consulting Provider: Meenakshi Son Consult Reason/Comments: acute cva s/p tpa Do you want consulting provider notified?: Already Contacted [facility] Course: Chief Complaint: Face and left arm weakness This is a 81-year-old patient who follows with Dr. Adam. Chronic stable medical conditions include hypertension, hyperlipidemia, kidney stones, essential tremor that he follows with Dr. Casillas the neurologist, history of prostate cancer 20 years ago treated with resection, CAD with stent placed on November 25 of [address] by Dr. Le. Around 645 this a.m. patient woke up was feeling fine. Around 10:30 this a.m. patient's had the sudden onset of left-sided facial weakness and weakness of the left upper extremity. Unable to lift things. He started drooling. Some structuring otherwise. Patient is on aspirin and Plavix. Patient was given TPA in the ER after initial computed tomography scan being negative. Since then slight improvement but not back to the baseline. No change in vision. No headache. No trouble walking. No trouble swallowing. December: Patient with ICU. Sitting up in a recliner. at the bedside. Facial asymmetry present. Some left arm weakness present. No new symptoms. Speech is still a bit slow. Pending MRI. 01/07/2022: Patient is gone into atrial fibrillation. Started on Lopressor. Patient be started eliquis in 48 hours per neurology. Patient neuro deficits noted different from yesterday. Discussed with patient. 01/08/2022: Stable. Remains in atrial fibrillation. Rate controlled. Discussed with the patient at the bedside. Speech stable. 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 01/09/2022: Atrial fibrillation rate remains controlled. Started eliquis today. Discussed with Dr. Blankenship from neurology. Stable for discharge. Care was discussed with the patient and at the bedside. Several questions answered. Speech sometimes gets a bit slow. Left arm remains power good. No follow-up with neurology Dr. Casillas Discussion and discharge planning more than 35 minutes Past medical history to include: GERD, hypertension, hyperlipidemia, prostate cancer treated with prostatectomy about 20 years ago, kidney stones, kidney cancer, essential tremor before by Dr. Casillas, CAD with stent on 11/25/2021, partial nephrectomy Social history: Nonsmoker nonalcoholic. . 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 Physical examination: VITAL SIGNS: 97.9, 53, 18, 1 34 x 61, 97% room air GENERAL: Sitting up, comfortable EYES: Pupils equal. Conjunctiva normal. HEENT: External appearance of nose and ears normal, oral cavity grossly normal. NECK: JVD not raised; masses not palpable. HEART: First and second heart sounds are normal; no edema. LUNGS: Respiratory rate normal; clear to auscultation. ABDOMEN: Soft, nontender, liver spleen not palpable, no masses palpable. PSYCH: Alert and oriented x3; mood and affect normal. NEUROLOGICAL: Facial asymmetry with mouth slightly pulled to the right. Some weakness of the muscles of the left face. Speech better. Power left arm4/5 Rest of the cranial nerves normal. Tremor INVESTIGATIONS, reviewed in the clinical context: MRI brain:Infarct involving the lateral posterior right frontal lobe.chronic white matter changes. 2-D echocardiogram: EF 55%. Computed tomography scan brain without contrast [January 06]: Involutional right lateral frontal lobe subacute infarct. 01/06/2022: WBC 6.2 hemoglobin 13.4 potassium 4.3 creatinine 0.9 LDL 28.8 triglyceride 255 WBC 7.8 hemoglobin 14.4 platelets 155 sodium 140 potassium 3.8 creatinine 1.15 HbA1c 5.8 AST 28 ALT 17 Troponin I less than 0.012, 0.016 TSH 0.868 EKG tracing personally reviewed by me-normal sinus rhythm. Heart rate 58. LVH. Some ST segment changes. Chest x-ray film personally reviewed by me-portable. Cardiac megaly. CT brain: No acute. No specific white matter changes. 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 He received TPA in the ER. Some improvement. MRI findings as per computed tomography scan. Eliquis started today. Lipitor. -New onset of atrial fibrillation.: Rate controlled Lopressor. Eliquis -Acute dysarthria secondary to stroke: Better Speech therapy -CAD with stent placed on 11/25/2021 Lipitor. Aspirin Plavix. -Hyperlipidemia Lipitor -Essential hypertension Losartan, Norvasc -Essential tremor, patient follows with Dr. Casillas outpatient Mysoline 50 mg twice a day. cabergoline Disposition: Home Plan - Discharge Summary Discharge Rx Participant: No New Discharge Prescriptions: New Atorvastatin [Lipitor] 40 mg PO HS #30 tab Metoprolol Tartrate [Lopressor] 50 mg PO BID #60 tab Apixaban [Eliquis] 5 mg PO BID #60 tab Famotidine [Pepcid] 20 mg PO BID #60 tablet Continue Doxazosin [Cardura] 4 mg PO DAILY@0800 Primidone [Mysoline] 50 mg PO BID@0800,1200 Cabergoline 0.5 mg PO MO@0800 Nitroglycerin Sl Tabs [Nitrostat] 0.4 mg SUBLINGUAL Q5M PRN #25 tab PRN Reason: Chest Pain Aspirin EC [Ecotrin Low Dose] 81 mg PO DAILY@0800 Clopidogrel [Plavix] 75 mg PO DAILY@0800 Losartan Potassium 100 mg PO DAILY@0800 Isosorbide Mononitrate ER [Imdur] 30 mg PO DAILY@0800 Changed amLODIPine [Norvasc] 5 mg PO DAILY@1800 #0 Discontinued Propranolol HCl [Inderal] 60 mg PO BID@0800,1200 Atorvastatin [Lipitor] 20 mg PO HS Discharge Medication List Doxazosin [Cardura] 4 mg PO DAILY@0800 04/22/15 [History] Primidone [Mysoline] 50 mg PO BID@0800,1200 04/22/15 [History] Cabergoline 0.5 mg PO MO@0800 11/24/21 [History] Isosorbide Mononitrate ER [Imdur] 30 mg PO DAILY@0800 11/24/21 [History] Losartan Potassium 100 mg PO DAILY@0800 11/24/21 [History] Nitroglycerin Sl Tabs [Nitrostat] 0.4 mg SUBLINGUAL Q5M PRN #25 tab 11/25/21 [Rx] Aspirin EC [Ecotrin Low Dose] 81 mg PO DAILY@0800 01/05/22 [History] Clopidogrel [Plavix] 75 mg PO DAILY@0800 01/05/22 [History] Apixaban [Eliquis] 5 mg PO BID #60 tab 01/09/22 [Rx] Atorvastatin [Lipitor] 40 mg PO HS #30 tab 01/09/22 [Rx] Famotidine [Pepcid] 20 mg PO BID #60 tablet 01/09/22 [Rx] Metoprolol Tartrate [Lopressor] 50 mg PO BID #60 tab 01/09/22 [Rx] amLODIPine [Norvasc] 5 mg PO DAILY@1800 #0 01/09/22 [Rx] Follow up Appointment(s)/Referral(s): Bo Le MD [STAFF PHYSICIAN] - 1 Week (please call the office on Wednesday to make your appointment) Jayden Adam MD [Primary Care Provider] - 1-2 days (please call the office on Wednesday to make your appointment) Wallace Aleman MD [REFERRING] - 2 Weeks (please call the office Wednesday to make your appointment) Patient Instructions/Handouts: A-fib (Atrial Fibrillation) (GEN), Ischemic Stroke (GEN), Safe Use of Anticoagulants (DC) Discharge Disposition: HOME SELF-CARE
[2022-01-12] MEDS ORDERED: NON FORMULARY DRUG (Cabergoline [Cabergoline] 0.5 MG Tablet) PO SCH (08:00)
== END 2022-01-09 18:06 | disposition home or self-care (01) | DRG 63 ==
LOC: EC 11:02 → 2SICU 13:04 → 3SCARD 01-06 17:51
PROVIDERS: ADMIT Hospitalist; ATTEND Hospitalist
DX: I63.531 Cerebral infarction due to unspecified occlusion or stenosis of right posterior cerebral artery (principal); I08.3 Combined rheumatic disorders of mitral, aortic and tricuspid valves; I10 Essential (primary) hypertension; E78.5 Hyperlipidemia, unspecified; G25.0 Essential tremor; I48.0 Paroxysmal atrial fibrillation; R29.810 Facial weakness; R53.1 Weakness; R47.1 Dysarthria and anarthria; R29.712 NIHSS score 12; I44.0 Atrioventricular block, first degree; K21.9 Gastro-esophageal reflux disease without esophagitis; R01.1 Cardiac murmur, unspecified; R47.82 Fluency disorder in conditions classified elsewhere; I25.10 Atherosclerotic heart disease of native coronary artery without angina pectoris; Z79.02 Long term (current) use of antithrombotics/antiplatelets; Z82.49 Family history of ischemic heart disease and other diseases of the circulatory system; Z79.899 Other long term (current) drug therapy; Z79.82 Long term (current) use of aspirin; Z90.5 Acquired absence of kidney; Z85.528 Personal history of other malignant neoplasm of kidney; Z95.5 Presence of coronary angioplasty implant and graft; Z85.46 Personal history of malignant neoplasm of prostate; Z87.442 Personal history of urinary calculi
CPT/HCPCS: 36415; 70450; 70496; 70498; 70551; 71045; 80048; 80053; 80061; 83036; 84443; 84484; 85025; 85610; 85730; 93005; 93306; 94760; 96374; 96375; 99285

== ENCOUNTER → 2022-08-06 | Outpatient (CLI) | payer MEDICARE ==
--- NOTE | 2022-08-07 09:02 | XR ---
EXAMINATION TYPE: XR chest 2V DATE OF EXAM: 08/06/2022 COMPARISON: 01/05/22 HISTORY: Shortness of breath TECHNIQUE: Frontal and lateral views of the chest are obtained. FINDINGS: Scattered senescent parenchymal changes noted. Hyperinflation compatible with COPD. No evidence for infiltrate. No evidence for atelectasis. Heart size is stable. Mediastinal structures are stable and grossly unremarkable. No evidence for hilar prominence. Degenerative changes dorsal spine. IMPRESSION: 1. No evidence for acute pulmonary disease.
== END | disposition home or self-care (01) ==
LOC: RADXRMAIN 16:19
PROVIDERS: ATTEND Family Medicine
DX: J20.9 Acute bronchitis, unspecified (principal)
CPT/HCPCS: 71046

== ENCOUNTER → 2022-08-25 | Outpatient (CLI) | payer MEDICARE ==
[2022-08-25 16:38] LABS: HCT 41.6 % (39.6-50.0); HGB 14.1 d/dL (12.0-15.0); MCH 32.1 pg (27.0-32.0); MCHC 33.9 d/dL (32.0-37.0); MCV 94.8 FL (80.0-97.0); Mean Platelet Volume 11.1 FL (9.5-12.2); NRBC Per 100 WBC 0 X 10*3/uL (0.00-0.01); Platelet Count 134 X 10*3/uL (140-440); RBC 4.39 X 10*6/uL (4.40-5.60); RDW 13.3 % (11.5-14.5); WBC 8.24 X 10*3/uL (4.50-10.00)
[2022-08-25 17:11] LABS: ALT 15 U/L (10-49); AST 25 U/L (14-35); Albumin 4.1 d/dL (3.8-4.9); Albumin/Globulin Ratio 1.71 Ratio (1.60-3.17); Alkaline Phosphatase 76 U/L (41-126); BUN/Creat Ratio 12.55 Ratio (12.00-20.00); Blood Urea Nitrogen 13.8 mg/dL (9.0-27.0); Calcium 9.3 mg/dL (8.7-10.3); Chloride 104 mmol/L (96-109); Chol/HDL Ratio 3.94 Ratio; Globulin 2.4 d/dL (1.6-3.3); Glucose 109 mg/dL (70-110); LDL Cholesterol,Calculated 27.3 mg/dL (0.0-131.0); Sodium 140 mmol/L (135-145); Total Bilirubin 1.1 mg/dL (0.3-1.2); Total Protein 6.5 d/dL (6.2-8.2)
[2022-08-25 18:03] LABS: Prolactin <1.500 ng/mL (2.100-17.000)
== END | disposition home or self-care (01) ==
LOC: LABWHC1 08:29
PROVIDERS: ATTEND Internal Medicine Interventional Cardiology
DX: I10 Essential (primary) hypertension (principal); I48.0 Paroxysmal atrial fibrillation; E78.2 Mixed hyperlipidemia; E22.1 Hyperprolactinemia
CPT/HCPCS: 36415; 80053; 80061; 84146; 85027

== ENCOUNTER 2022-09-16 08:17 | Day surgery (SDC) | payer MEDICARE ==
[~2022-09-16 08:17] MED LIST: LACTATED RINGERS 1,000 ML IV SCH; LIDOCAINE 1% (10MG/ML) FOR IV START INTRADERMA PRN
[2022-09-16 09:02] VITALS: BP 176/70; PULSE 48; RESP 16; TEMP 97.4
--- NOTE | 2022-09-16 09:54 | P.PN ---
Subjective Progress Note Date: 09/16/22 Patient was scheduled to undergo LIBIA guided cardioversion, he is in sinus bradycardia with first-degree block. He will continue medical therapy and follow in the office in one week for further recommendations. The plan was discussed with the family and the patient. Objective - Vital Signs Vital signs: Vital Signs Temp 97.4 F L 09/16/22 08:50 Pulse 48 L 09/16/22 08:50 Resp 16 09/16/22 08:50 BP 176/70 09/16/22 08:50 Pulse Ox 99 09/16/22 08:50 FiO2 Intake & Output 09/15/22 09/16/22 09/16/22 18:59 06:59 18:59 Weight 79.6 kg
== END 2022-09-16 10:05 | disposition home or self-care (01) ==
LOC: OR 08:17
PROVIDERS: ATTEND Internal Medicine Interventional Cardiology
DX: Z53.8 Procedure and treatment not carried out for other reasons (principal); I48.11 Longstanding persistent atrial fibrillation; I10 Essential (primary) hypertension; E78.5 Hyperlipidemia, unspecified; Z85.49 Personal history of malignant neoplasm of other male genital organs

== ENCOUNTER → 2022-10-22 | Outpatient (CLI) | payer MEDICARE ==
--- NOTE | 2022-10-22 16:13 | XR ---
EXAMINATION TYPE: XR chest 2V DATE OF EXAM: 10/22/2022 COMPARISON: 08/06/2022 HISTORY: 82-year-old male C64.1 MALIGNANT NEOPLASM OF RIGHT KIDNEY, EXCEPT R TECHNIQUE: Frontal and lateral views FINDINGS: The cardiomediastinal silhouette and pulmonary vasculature are within normal limits. Atherosclerotic calcifications aortic arch. Mild hyperinflation. Otherwise, lungs and pleural spaces are clear. IMPRESSION: Mild hyperinflation may relate to depth of inspiration or underlying emphysema. Otherwise, no acute p rocess seen.
--- NOTE | 2022-10-22 16:47 | US ---
EXAMINATION TYPE: US kidneys/renal and bladder DATE OF EXAM: 10/22/2022 COMPARISON: NONE CLINICAL INDICATION: Male, 82 years old with history of C64.1 MALIGNANT NEOPLASM OF RIGHT KIDNEY, EXC EPT R; h/o renal ca on the right years ago, no issues today EXAM MEASUREMENTS: Right Kidney: 9.0 x 4.7 x 5.4 cm Left Kidney: 12.4 x 4.0 x 5.0 cm Right Kidney: smaller in size, otherwise wnl. No hydronephrosis seen. No discrete mass is apparent by ultrasound. Left Kidney: No hydronephrosis or masses seen Bladder: No gross abnormality. Incidental echogenic liver parenchyma. IMPRESSION: 1. Smaller size of the right kidney. No hydronephrosis on either side. 2. Incidental hepatic steatosis.
== END | disposition home or self-care (01) ==
LOC: RADUSWWP 13:39
PROVIDERS: ATTEND Urology
DX: C64.1 Malignant neoplasm of right kidney, except renal pelvis (principal); K76.0 Fatty (change of) liver, not elsewhere classified
CPT/HCPCS: 71046; 76770

== ENCOUNTER 2022-12-11 19:51 | Emergency (ER) | payer MEDICARE ==
[2022-12-11 20:27] VITALS: RESP 20; TEMP 98.1
[2022-12-11] MEDS ORDERED: DIPH,PERTUS(ACELL)TETVAC-LF 0.5 ML VIAL IM ONE (20:50)
[2022-12-11] MEDS ORDERED: BACITRACIN OINT 1 EACH PACKET TOPICAL ONE ×2 (20:53→21:57)
--- NOTE | 2022-12-11 21:34 | XR ---
EXAMINATION TYPE: XR forearm LT DATE OF EXAM: 12/11/2022 CLINICAL HISTORY: Injury from lawnmower TECHNIQUE: Two views of the left forearm are obtained. COMPARISON: None. FINDINGS: There is no acute fracture or dislocation seen in the left radius or ulna. The left elbow and wrist joints appear within normal limits. There are fixating plates at the base of the fourth an d fifth metacarpals. There is moderate subcutaneous edema and soft tissue swelling along the dorsal a spect of the mid to distal forearm. IMPRESSION: There is no acute fracture or dislocation seen in the left radius or ulna.
--- NOTE | 2022-12-11 21:36 | ED ---
General Adult HPI - General Chief complaint: Wound/Laceration Stated complaint: Cut L Arm w Leslie Leon, On thinners Time Seen by Provider: 12/11/22 20:28 Source: patient, RN notes reviewed Mode of arrival: ambulatory Limitations: no limitations - History of Present Illness Initial comments: 82-year-old male presents to the emergency department chief complaint of left arm injury. He states that he was working on his lawnmower when the chain wrapped around his arm and continued moving causing friction and skin tears on his left arm. He notes significant swelling to the dorsal aspect of his left arm. He is unsure when his last tetanus vaccination was. He is on blood thinners. No medication ALLERGIES. - Related Data Home Medications Medication Instructions Recorded Confirmed Doxazosin [Cardura] 4 mg PO HS 04/22/15 09/14/22 Primidone [Mysoline] 50 mg PO BID 04/22/15 09/14/22 Cabergoline 0.5 mg PO MO@0800 11/24/21 09/14/22 Losartan Potassium 100 mg PO DAILY@1200 11/24/21 09/14/22 Clopidogrel [Plavix] 75 mg PO QAM 01/05/22 09/14/22 Metoprolol Tartrate 25 mg PO BID 09/14/22 09/14/22 Previous Rx's Medication Instructions Recorded Nitroglycerin Sl Tabs [Nitrostat] 0.4 mg SUBLINGUAL Q5M PRN #25 tab 11/25/21 Apixaban [Eliquis] 5 mg PO BID #60 tab 01/09/22 Atorvastatin [Lipitor] 40 mg PO HS #30 tab 01/09/22 Famotidine [Pepcid] 20 mg PO BID #60 tablet 01/09/22 amLODIPine [Norvasc] 5 mg PO DAILY@1800 #0 01/09/22 Allergies Allergy/AdvReac Type Severity Reaction Status Date / Time No Known Allergies Allergy Verified 12/11/22 20:15 Review of Systems ROS Statement: Those systems with pertinent positive or pertinent negative responses have been documented in the HPI. ROS Other: All systems not noted in ROS Statement are negative. Past Medical History Past Medical History: Atrial Fibrillation, Cancer, GERD/Reflux, Hyperlipidemia, Hypertension Additional Past Medical History / Comment(s): 12/2021 CVA, BALANCE OFF, DIZZY, NO OTHER RESIDUAL. HX: PROSTATE AND RIGHT KIDNEY CANCER. CALCULI. ESSENTIAL TREMORS (BEFORE STROKE). History of Any Multi-Drug Resistant Organisms: None Reported Past Surgical History: Cholecystectomy, Heart Catheterization, Heart Catheterization With Stent, Hernia Repair, Prostate Surgery Additional Past Surgical History / Comment(s): RIGHT PARTIAL NEPHRECTOMY [facility] (MARLENY). LAMAR. CATARACT REMOVAL WITH LENS IMPLANTS Past Anesthesia/Blood Transfusion Reactions: No Reported Reaction, Motion Sickness Date of Last Stent Placement:: 11/25/21 Past Psychological History: No Psychological Hx Reported Smoking Status: Never smoker Past Alcohol Use History: None Reported Past Drug Use History: None Reported - Past Family History Father Family Medical History: Coronary Artery Disease (CAD) Mother Family Medical History: Coronary Artery Disease (CAD) General Exam Limitations: no limitations General appearance: alert, in no apparent distress Head exam: Present: atraumatic, normocephalic, normal inspection Eye exam: Present: normal appearance, PERRL, EOMI. Absent: scleral icterus, conjunctival injection, periorbital swelling ENT exam: Present: normal exam, mucous membranes moist Neck exam: Present: normal inspection. Absent: tenderness, meningismus, lymphadenopathy Respiratory exam: Present: normal lung sounds bilaterally. Absent: respiratory distress, wheezes, rales, rhonchi, stridor Cardiovascular Exam: Present: regular rate, normal rhythm, normal heart sounds. Absent: systolic murmur, diastolic murmur, rubs, gallop, clicks Extremities exam: Present: full ROM, tenderness, normal capillary refill, other (radial pulses 2+, hematoma to dorsal left forearm ) Neurological exam: Present: alert, oriented X3 Psychiatric exam: Present: normal affect, normal mood Skin exam: Present: warm, dry, normal color, abrasion Course Vital Signs 12/11/22 12/11/22 20:12 22:10 Temperature 98.1 F Pulse Rate 68 55 L Respiratory 20 20 Rate Blood Pressure 142/60 129/71 O2 Sat by Pulse 97 96 Oximetry Medical Decision Making - Medical Decision Making Was pt. sent in by a medical professional or institution (, PA, MANAGER COSTING, urgent care, hospital, or detention...) When possible be specific @ -No Did you speak to anyone other than the patient for history (EMS, parent, family, police, friend...)? What history was obtained from this source @ -No Did you review nursing and triage notes (agree or disagree)? Why? @ -I reviewed and agree with nursing and triage notes Were old charts reviewed (outside hosp., previous admission, EMS record, old EKG, old radiological studies, urgent care reports/EKG's, detention records)? Report findings @ -No old charts were reviewed Differential Diagnosis (chest pain, altered mental status, abdominal pain women, abdominal pain men, vaginal bleeding, weakness, fever, dyspnea, syncope, headache, dizziness, GI bleed, back pain, seizure, CVA, palpatations, mental health, musculoskeletal)? @ -Skin tear, laceration, abrasion, hematoma, this list is not all-inclusive EKG interpreted by me (3pts min.). @ -None X-rays interpreted by me (1pt min.). @ -X-ray left forearm shows no evidence of acute fracture CT interpreted by me (1pt min.). @ -None done U/S interpreted by me (1pt. min.). @ -None done What testing was considered but not performed or refused? (CT, X-rays, U/S, labs)? Why? @ -None What meds were considered but not given or refused? Why? @ -None Did you discuss the management of the patient with other professionals (professionals i.e. , PA, MANAGER COSTING, lab, RT, psych nurse, outreach and education social worker, tape weaver, teacher, fire officer, pillowcase maker)? Give summary @ -No Was smoking cessation discussed for >3mins.? @ -No Was critical care preformed (if so, how long)? @ -No Were there social determinants of health that impacted care today? How? (Homelessness, low income, unemployed, alcoholism, drug addiction, transportation, low edu. Level, literacy, decrease access to med. care, fpc, rehab)? @ -No Was there de-escalation of care discussed even if they declined (Discuss DNR or withdrawal of care, Hospice)? DNR status @ -No What co-morbidities impacted this encounter? (DM, HTN, Smoking, COPD, CAD, Cancer, CVA, ARF, Chemo, Hep., AIDS, mental health diagnosis, sleep apnea, morbid obesity)? @ -None Was patient admitted / discharged? Hospital course, mention meds given and route, prescriptions, significant lab abnormalities, going to OR and other pertinent info. @ -Discharged. Patient presented to emergency department with chief complaint of left abdominal wound from his lawnmower. This area was cleaned with saline and bacitracin was applied to the wound and so was wrapped with slight pressure as there is a visible hematoma on the dorsal aspect of the forearm. X-ray obtained which shows no evidence of acute fracture. Wound care discussed with patient. Patient will be discharged home. Patient stable at discharge. Case discussed with Dr. Arriaza who also evaluated the patient is agreeable with plan Undiagnosed new problem with uncertain prognosis? @ -No Drug Therapy requiring intensive monitoring for toxicity (Heparin, Nitro, Insulin, Cardizem)? @ -No Were any procedures done? @ -No Diagnosis/symptom? @ -Left dorsal forearm hematoma Acute, or Chronic, or Acute on Chronic? @ -Acute Uncomplicated (without systemic symptoms) or Complicated (systemic symptoms)? @ -uncomplicated Side effects of treatment? @ -No Exacerbation, Progression, or Severe Exacerbation? @ -No Poses a threat to life or bodily function? How? (Chest pain, [place], [place], pneumonia, PE, COPD, DKA, ARF, appy, cholecystitis, CVA, Diverticulitis, Homicidal, Suicidal, threat to staff... and all critical care pts) @ -No Disposition Clinical Impression: Traumatic hematoma of left forearm Disposition: HOME SELF-CARE Condition: Stable Instructions (If sedation given, give patient instructions): Hematoma (ED) Additional Instructions: Please follow up with your primary care provider. Return to the emergency department for new or worsening symptoms. Is patient prescribed a controlled substance at d/c from ED?: No Referrals: Jayden Adam MD [Primary Care Provider] - 1-2 days
[2022-12-11 22:25] VITALS: BP 129/71; PULSE 55
== END 2022-12-11 22:39 | disposition home or self-care (01) ==
LOC: EC 19:51
DX: S50.12XA Contusion of left forearm, initial encounter (principal); I10 Essential (primary) hypertension; I48.91 Unspecified atrial fibrillation; Z79.899 Other long term (current) drug therapy; Z23 Encounter for immunization; W23.1XXA Caught, crushed, jammed, or pinched between stationary objects, initial encounter
CPT/HCPCS: 90471; 90715; 99283

== ENCOUNTER → 2023-01-15 | Outpatient (CLI) | payer MEDICARE ==
[2023-01-15 15:37] LABS: Basophils # (A) 0.04 X 10*3/uL (0.00-0.10); Basophils % (A) 0.6 %; Eosinophils # (A) 0.23 X 10*3/uL (0.04-0.35); Eosinophils % (A) 3.4 %; HCT 43.5 % (39.6-50.0); HGB 14.8 g/dL (13.0-17.0); Lymphocytes # (A) 1.81 X 10*3/uL (0.90-5.00); Lymphocytes % (A) 26.9 %; MCH 32.4 pg (27.0-32.0); MCV 95.2 FL (80.0-97.0); Mean Platelet Volume 10.4 FL (9.5-12.2); Monocytes # (A) 0.55 X 10*3/uL (0.20-1.00); Monocytes % (A) 8.2 %; NRBC Per 100 WBC 0 X 10*3/uL (0.00-0.01); Neutrophils # (A) 4.08 X 10*3/uL (1.80-7.70); Neutrophils % (A) 60.6 %; Platelet Count 164 X 10*3/uL (140-440); RBC 4.57 X 10*6/uL (4.40-5.60); RDW 13.2 % (11.5-14.5); WBC 6.73 X 10*3/uL (4.50-10.00)
[2023-01-15 16:11] LABS: ALT 14 U/L (10-49); AST 24 U/L (14-35); Albumin 4.3 g/dL (3.8-4.9); Albumin/Globulin Ratio 1.72 Ratio (1.60-3.17); Alkaline Phosphatase 75 U/L (41-126); BUN/Creat Ratio 11.27 Ratio (12.00-20.00); Blood Urea Nitrogen 12.4 mg/dL (9.0-27.0); Calcium 9.8 mg/dL (8.7-10.3); Carbon Dioxide 27.1 mmol/L (21.6-31.8); Chloride 105 mmol/L (96-109); Chol/HDL Ratio 5.66 Ratio; Creatine Kinase 84 U/L (35-257); Globulin 2.5 g/dL (1.6-3.3); Glucose 118 mg/dL (70-110); Potassium 4.8 mmol/L (3.5-5.5); Prostate Specific Antigen 0.02 ng/mL (0.000-6.500); Sodium 142 mmol/L (135-145); Total Protein 6.8 g/dL (6.2-8.2)
== END | disposition home or self-care (01) ==
LOC: LABWHC1 09:07
PROVIDERS: ATTEND Internal Medicine Interventional Cardiology
DX: I10 Essential (primary) hypertension (principal); E78.2 Mixed hyperlipidemia; M79.10 Myalgia, unspecified site; D35.2 Benign neoplasm of pituitary gland; Z85.46 Personal history of malignant neoplasm of prostate
CPT/HCPCS: 36415; 80053; 80061; 82550; 83721; 84146; 84153; 84443; 85025

== ENCOUNTER → 2023-03-04 | Outpatient (CLI) | payer MEDICARE ==
--- NOTE | 2023-03-04 14:06 | XR ---
EXAMINATION TYPE: XR chest 2V DATE OF EXAM: 03/04/2023 COMPARISON: 10/22/2022 HISTORY: 82-year-old male M5 4.6, thoracic spine pain TECHNIQUE: Frontal and lateral views FINDINGS: Heart normal size. Atherosclerotic arch calcifications. No consolidation or pleural effusion. Accentu ated mid thoracic kyphosis with mild to moderate degenerative disc disease. IMPRESSION: No acute cardiopulmonary process.
== END | disposition home or self-care (01) ==
LOC: RADXRMAIN 08:43
PROVIDERS: ATTEND Family Medicine
DX: M54.6 Pain in thoracic spine (principal)
CPT/HCPCS: 71046

== ENCOUNTER → 2023-03-08 | Outpatient (CLI) | payer MEDICARE ==
[2023-03-08 15:18] LABS: ALT 17 U/L (10-49); AST 23 U/L (14-35); Albumin 4.1 g/dL (3.8-4.9); Albumin/Globulin Ratio 1.64 Ratio (1.60-3.17); Alkaline Phosphatase 70 U/L (41-126); BUN/Creat Ratio 14.33 Ratio (12.00-20.00); Blood Urea Nitrogen 17.2 mg/dL (9.0-27.0); Calcium 9.3 mg/dL (8.7-10.3); Carbon Dioxide 26.6 mmol/L (21.6-31.8); Chloride 104 mmol/L (96-109); Globulin 2.5 g/dL (1.6-3.3); Glucose 111 mg/dL (70-110); Potassium 4.9 mmol/L (3.5-5.5); Sodium 140 mmol/L (135-145); Total Bilirubin 1.2 mg/dL (0.3-1.2); Total Protein 6.6 g/dL (6.2-8.2)
== END | disposition home or self-care (01) ==
LOC: LABWHC1 09:00
PROVIDERS: ATTEND Internal Medicine
DX: E22.1 Hyperprolactinemia (principal); E55.9 Vitamin D deficiency, unspecified
CPT/HCPCS: 36415; 80053; 82306; 84146

== ENCOUNTER → 2023-04-16 | Outpatient (CLI) | payer MEDICARE ==
[2023-04-16 11:15] LABS: HCT 43.4 % (39.0-53.0); HGB 15.1 gm/dL (13.0-17.5); MCH 33.3 pg (25.0-35.0); MCHC 34.8 g/dL (31.0-37.0); MCV 95.9 fL (80.0-100.0); Mean Platelet Volume 8.6; Platelet Count 205 k/uL (150-450); RBC 4.52 m/uL (4.30-5.90); RDW 12.8 % (11.5-15.5); WBC 8.2 k/uL (3.8-10.6)
[2023-04-16 11:25] LABS: African American GFR (CKD) >90 (>60 ml/min/1.73 sqM); Anion Gap 5 mmol/L; Blood Urea Nitrogen 15 mg/dL (9-20); Calcium 9.4 mg/dL (8.4-10.2); Carbon Dioxide 29 mmol/L (22-30); Chloride 106 mmol/L (98-107); Glucose 92 mg/dL (74-99); Non-African American GFR(CKD) 81 (>60 ml/min/1.73 sqM); Potassium 4.7 mmol/L (3.5-5.1); Sodium 140 mmol/L (137-145)
--- NOTE | 2023-04-18 18:59 | CT ---
EXAMINATION TYPE: CT abdomen pelvis w con DATE OF EXAM: 04/16/2023 COMPARISON: 07/24/2019 HISTORY: 82-year-old male R10.32, LLQ pain, hx prostate and renal ca TECHNIQUE: Contiguous axial scanning of the abdomen and pelvis following administration of 100 ml Iso maliha 300 IV contrast. Delayed images through the kidneys and coronal/sagittal reconstructions perform ed. CT DLP: 1461 mGycm Automated exposure control for dose reduction was used. FINDINGS: Heart borderline in size without pericardial effusion. Some mild strandy atelectasis in the lower blanka gs without pleural effusion. Liver shows diminished attenuation suggesting fatty infiltration. Portal venous system is patent. No ductal dilatation. Cholecystectomy clips. Adrenal glands, spleen, and pancreas within normal limits. Tiny bilateral renal cortical cysts measuring up to 9 mm are redemonstrated, unchanged from 2020. Pos tsurgical change along the lateral margin of the right kidney also remains unchanged. No new or suspi cious increasing soft tissue is identified. No dilated small bowel, free fluid, or free air. No mesenteric or retroperitoneal lymphadenopathy. Mild atherosclerotic calcifications abdominal aorta and common iliac arteries. Normal appendix. There is moderate stool burden. Oral contrast progressed into the upper ascending co parviz. There are segments of thickened sigmoid colon with surrounding fat stranding. No abnormal fluid colle ction. Mild circumferential bladder wall thickening with slightly trabeculated appearance suggests chronic b ladder wall hypertrophy. Prostate gland is surgically absent. No abnormal fluid collection in the pel vis or pelvic lymphadenopathy is seen. Bones: Moderate degenerative disc disease L4-L5. Moderate to severe facet arthropathy mid to lower dez mbar spine. DISH lower thoracic spine. IMPRESSION: 1. STABLE POSTSURGICAL CHANGE RIGHT KIDNEY. NO EVIDENCE FOR RECURRENT OR METASTATIC DISEASE TO THE AB DOMEN OR PELVIS. 2. LEFT-SIDED COLONIC DIVERTICULOSIS WITH SEGMENTS OF MILDLY THICKENED SIGMOID COLON. THERE ARE AREAS OF MILD PERICOLONIC FAT STRANDING HERE WELL. CORRELATE FOR MILD ACUTE DIVERTICULITIS. NO ABSCESS OR FREE AIR. 3. STATUS POST PROSTATECTOMY.
== END | disposition home or self-care (01) ==
LOC: RADCTMAIN 10:35
PROVIDERS: ATTEND Family Medicine
DX: Z00.00 Encounter for general adult medical examination without abnormal findings (principal); K57.30 Diverticulosis of large intestine without perforation or abscess without bleeding; K63.89 Other specified diseases of intestine; I25.10 Atherosclerotic heart disease of native coronary artery without angina pectoris; Z85.46 Personal history of malignant neoplasm of prostate; Z90.79 Acquired absence of other genital organ(s); Z85.528 Personal history of other malignant neoplasm of kidney; Z98.890 Other specified postprocedural states
CPT/HCPCS: 80048; 85027; 74177; 36415; Q9967

== ENCOUNTER → 2023-04-20 | Day surgery (SDC) | payer MEDICARE ==
[2023-04-15 11:39] VITALS: BMI 27.3
[~2023-04-20] MED LIST changes: +ALPRAZolam 0.25 MG TAB PO PRN; +ALPRAZolam 0.5 MG TAB PO PRN; +ASPIRIN 325 MG TAB PO STA; +ATORVASTATIN 40 MG TAB PO SCH; +CLOPIDOGREL 75 MG TAB PO SCH; +DOXAZOSIN 4 MG TAB PO SCH; +FAMOTIDINE 20 MG TAB PO SCH; +HEPARIN SODIUM 1,000 UN/ML (10ML VL) ONE; -LACTATED RINGERS 1,000 ML IV SCH; -LIDOCAINE 1% (10MG/ML) FOR IV START INTRADERMA PRN; +LIDOCAINE 1% INJ 10MG/ML (20 ML MDV) ONE; +LOSARTAN 50 MG TAB PO SCH; +METOPROLOL TARTRATE 25 MG TAB PO SCH; +NITROGLYCERIN SL TABS 0.4 MG TAB SUBLINGUAL PRN; +PRIMIDONE 50 MG TAB PO SCH; +RX INFO: IV CONTRAST WAS GIVEN 1 EACH MISC MISCELLANE PRN; +SODIUM CHLORIDE 0.9% 1,000 ML IV SCH; +SODIUM CHLORIDE 0.9% 1,000 ML in EMPTY BAG 1 BAG IV SCH; +VERAPAMIL 2.5 MG/ML 2 ML AMP ONE; +amLODIPine 5 MG TAB PO SCH; +fentaNYL (PF) 50 MCG/ML 2 ML AMP ONE
[2023-04-20] MEDS: SODIUM CHLORIDE 0.9% 1,000 ML IV ONE (06:38)
[2023-04-20 06:48] VITALS: RESP 16; TEMP 98.3
[2023-04-20] MEDS: LIDOCAINE 1% INJ 10MG/ML (20 ML MDV) SQ ONE (07:44)
[2023-04-20] MEDS: fentaNYL (PF) 50 MCG/1 ML VIAL IVP ONE (07:45)
[2023-04-20] MEDS: VERAPAMIL SYRINGE (5 MG/10 ML) INTRAARTER ONE (07:45)
[2023-04-20] MEDS: HEPARIN SODIUM 1,000 UN/ML (10ML VL) IVP ONE (07:52)
[2023-04-20] MEDS: IOPAMIDOL-370 100ML BTL INTRATHECA ONE (07:58)
--- NOTE | 2023-04-20 08:24 | P.CARDCATH ---
Date of Procedure: 04/20/23 Description of Procedure: Cardiac Catheterization: The patient is an 82-year-old male with a known history of CAD, hypertension and hyperlipidemia who had episodes of chest discomfort and an abnormal MPI. Recommendations were made regarding cardiac catheterization, the risks and the complications were discussed with the patient who is in full understanding and agreement. Procedure Description: Patient was brought to color laboratory technician in fasting semi-sedated state after receiving Fentanyl and Benadryl achieiving moderate conscious sedated state. Using Xylocaine Anesthesia and modified Seldinger technique, a 6-Burkinan sheath was introduced in the right radial artery . Subsequently, selective coronary angiography was performed using a 5-Burkinan 3.5 bend Kaia catheter. Multiple views of the coronary artery including hemiaxial views were obtained. The 5 Burkinan pigtail catheter was used to cross the aortic valve and LVEDP was calculated. Following that, catheter and sheath were removed. Hemostasis was obtained with deployment of vascular band . There was no immediate complication. Patient was returned to room in stable condition. Of note, the patient received a total of 4500 units of intravenous heparin as well as intra-arterial verapamil. Findings: Left main: This is a large size vessel, bifurcating into LAD and left circumflex, left main has no high-grade stenosis LAD: This is a large size vessel, reaching to the apex, giving rise to a large diagonal branch. There is a 30% plaque distal to the takeoff of the diagonal branch. The stented segment in the mid LAD is patent with no significant in- stent restenosis. Left circumflex: This is a large nondominant vessel giving rise to 4 obtuse marginal branch. The third obtuse marginal branch is chronically occluded with retrograde flow. The rest of the vessel has no high-grade stenosis. RCA: This is a dominant moderately sized vessel. Bifurcating distally to PDA and PLV. The PLV has a branch that has diffuse intimal disease but it is small in caliber. The rest of the vessel has no high-grade stenosis. Left Ventriculogram: Not performed Hemodynamics: There was no gradient across aortic valve, LVEDP was 14-16 mmHg Conclusion: 1. No evidence of in-stent restenosis of the LAD with mild disease proximal to the stent 2. Chronically occluded OM 3 3. Diffuse intimal disease in the small PLV branch 4. Right dominance Recommendations: In view of the absence of any progression of disease I would recommend to continue medical therapy with the aggressive coronary risks modifications. The findings and the recommendations were discussed with the patient and the family and they were in full understanding and agreement. Duration of sedation is 17 minutes.
[2023-04-20 10:57] VITALS: PULSE 53
[2023-04-20 12:43] VITALS: BP 145/62
== END | disposition home or self-care (01) ==
LOC: CATHCVL 06:23
PROVIDERS: ATTEND Internal Medicine Interventional Cardiology
DX: I25.10 Atherosclerotic heart disease of native coronary artery without angina pectoris (principal); I10 Essential (primary) hypertension; E78.5 Hyperlipidemia, unspecified; E78.2 Mixed hyperlipidemia; I48.0 Paroxysmal atrial fibrillation; G47.33 Obstructive sleep apnea (adult) (pediatric); Z82.49 Family history of ischemic heart disease and other diseases of the circulatory system; Z79.82 Long term (current) use of aspirin; Z79.01 Long term (current) use of anticoagulants; Z79.899 Other long term (current) drug therapy
CPT/HCPCS: 93458; C1769 ×3; C1894; J2001; J1644; Q9967; J3010

== ENCOUNTER 2023-07-21 19:42 | Outpatient (CLI) | payer MEDICARE ==
--- NOTE | 2023-08-02 00:19 | P.PCN ---
Date of Procedure: 07/21/23 Operative Findings: Polysomnography report Date of service is 07/21/2023 Pertinent history This is a pleasant 83-year-old male patient accompanied today by his and a concern is sleep apnea. The patient has chronic atrial fibrillation under the care of cardiology, Dr. Le. The patient also has hypertension, hyperlipidemia, BPH, in addition to a previous history of CVA with some residual left-sided weakness involving the left face and the left upper extremity. It seems that the patient is essentially recovered from his stroke. The patient is also known to have coronary artery disease and he has undergone previous cardiac catheterization and stenting of the LAD. His left-ventricular ejection fraction has been essentially within normal limits. No significant valvular heart disease based on previous echocardiogram from December 2021. In regards to his sleep, the admits that the patient snores loud. No reported witnessed apneas. The patient goes to bed around 9:30 PM to 10 PM and he gets up frequently middle of the night at various times including midnight, 4:30 AM and 6 AM in the morning. On 2 of those arousals, the patient utilize the bathroom to urinate. When he ultimately gets out of bed, he feels very much tired and fatigued and he can easily fall asleep. This gradually improves during the day. He does take occasional naps. He sleeps on his side and occasionally on his back. His weight has been up slowly over the years and the patient has gained approximately 15 pounds over the past 10 years. No history of insomnia. No grinding of the teeth. No anxiety or panic attacks. No palpitations. No nocturnal heartburn. Denies waking up choking or gasping for air. No symptoms of restlessness in his lower extremities. No sleepwalking or sleep talking. No sleep paralysis. No hallucinations or cataplexy. Pertinent physical findings Height is 5 feet and 5 inches, weight is 179 pounds with a BMI of 29.8 Technical description The patient was studied using a standard complex polysomnography protocol that included recording of the 2 EKG, Central, occipital and frontal EEG, right and left outer canthus EOG, submental EMG, right and left anterior tibialis EMG, respiratory airflow by thermocouple and or pressure/flow transducer, respiratory efforts by abdominal and thoracic PVDF belts, oxygen saturation by cable oximetry. Position by observation synchronized the PSG. Equipment used: [employer]. Sleep architecture The patient had a total recording duration of 427 minutes. The total sleep time was 240 minutes. The overall sleep efficiency was 56.2%. The latency to sleep onset was 37 minutes. No REM sleep was encountered and the patient sleep architecture was characterized by 1.9% stage I, 98% stage II, 0% stage III, 0% REM sleep. The total arousal index was 2.0. The wake after sleep onset time was 150 minutes Respiratory summary The sleep study showed a total of 50 obstructive events of which 2 were obstructive apneas, 2 were mixed apnea and 46 were obstructive hypopneas. The resulting AHI was 11.5. No central events or apneas were noted. The respiratory arousal index was 0.3. The baseline pulse ox was 95% while awake. Lowest pulse ox was 83% and the patient spent approximately 4 minutes of sleep time below pulse ox of 89%. Arousal events The patient had total of 8 arousals with an index of 2.0. Respiratory arousal index was 0.3 Periodic limb movements The patient had a total of 156. Regular movement activity with an index of 39. Those were not associated with any analysis Cardiac summary Average heart rate was 52 with a minimum heart rate 49 and maximum heart rate of 55 and rhythm was atrial fibrillation. Assessment Mild obstructive sleep apnea with an AHI of 11. No significant nocturnal oxygen saturations. Abnormal sleep architecture with absent delta wave and REM sleep and significant over representation of stage II sleep. Poor sleep efficiency Prolonged sleep onset time Chronic atrial fibrillation Chronic hypersomnia sleepiness. His current [place] score is 5 out of 24. Patient's body mass index is 29.7. CVA with some residual left-sided weakness involving the left face and left upper extremity History of prostate cancer History of renal cancer and the patient has undergone right partial nephrectomy History of coronary artery disease with previous cardiac catheterization and stenting of the LAD Chronic atrial fibrillation, rate is controlled and the patient remains on metoprolol and Eliquis Hypertension Hyperlipidemia History of nephrolithiasis Essential tremors Plan Will discuss findings with the patient. He is ability to maintain his sleep is poor and the patient has significant architecture from his sleep with a poor sleep efficiency. As such, another obstructive show the patient is going to tolerate CPAP therapy. Will discuss with him treatment options and will make a decision and the options will be discussed with the patient's CPAP therapy, oral appliance versus conservative measures. Will continue to follow. In summary, this is a case of mild obstructive sleep apnea. Comorbidities are multiple likely affecting to his poor sleep efficiency and abnormal architecture.
== END 2023-07-22 06:32 | disposition home or self-care (01) ==
LOC: 3 N SLEEP 19:42
PROVIDERS: ATTEND Internal Medicine Critical Care Medicine
DX: G47.33 Obstructive sleep apnea (adult) (pediatric) (principal); I48.20 Chronic atrial fibrillation, unspecified; I69.354 Hemiplegia and hemiparesis following cerebral infarction affecting left non-dominant side; I10 Essential (primary) hypertension; I25.10 Atherosclerotic heart disease of native coronary artery without angina pectoris; G25.0 Essential tremor; E78.5 Hyperlipidemia, unspecified; N40.0 Benign prostatic hyperplasia without lower urinary tract symptoms; G47.52 REM sleep behavior disorder; Z85.46 Personal history of malignant neoplasm of prostate; Z87.442 Personal history of urinary calculi; Z85.528 Personal history of other malignant neoplasm of kidney; Z79.01 Long term (current) use of anticoagulants; Z95.5 Presence of coronary angioplasty implant and graft; Z79.899 Other long term (current) drug therapy; Z79.02 Long term (current) use of antithrombotics/antiplatelets
CPT/HCPCS: 95810

== ENCOUNTER → 2023-07-26 | Outpatient (CLI) | payer MEDICARE ==
--- NOTE | 2023-07-27 07:27 | XR ---
EXAMINATION TYPE: XR chest 2V DATE OF EXAM: 07/26/2023 COMPARISON: 03/04/2023 HISTORY: Shortness of breath TECHNIQUE: Frontal and lateral views of the chest are obtained. FINDINGS: Scattered senescent parenchymal changes noted. No evidence for infiltrate. No evidence for atelectasis. Heart size is stable. Mediastinal structures are stable and grossly unremarkable. No evidence for hilar prominence. Degenerative changes dorsal spine. IMPRESSION: 1. No evidence for acute pulmonary disease.
== END | disposition home or self-care (01) ==
LOC: RADXRMAIN 17:47
PROVIDERS: ATTEND Family Medicine
DX: R05.3 Chronic cough (principal); R06.02 Shortness of breath; R53.83 Other fatigue
CPT/HCPCS: 71046

== ENCOUNTER → 2023-07-27 | Outpatient (CLI) | payer MEDICARE ==
[2023-07-27 14:53] LABS: Basophils # (A) 0.05 X 10*3/uL (0.00-0.10); Basophils % (A) 0.4 %; Eosinophils # (A) 0.52 X 10*3/uL (0.04-0.35); Eosinophils % (A) 4.1 %; HCT 45.4 % (39.6-50.0); HGB 15.1 g/dL (13.0-17.0); Lymphocytes # (A) 1.97 X 10*3/uL (0.90-5.00); Lymphocytes % (A) 15.6 %; MCH 31.7 pg (27.0-32.0); MCHC 33.3 g/dL (32.0-37.0); MCV 95.2 FL (80.0-97.0); Mean Platelet Volume 10.9 FL (9.5-12.2); Monocytes # (A) 0.98 X 10*3/uL (0.20-1.00); Monocytes % (A) 7.8 %; NRBC Per 100 WBC 0 X 10*3/uL (0.00-0.01); Neutrophils # (A) 9.03 X 10*3/uL (1.80-7.70); Neutrophils % (A) 71.5 %; Platelet Count 205 X 10*3/uL (140-440); RBC 4.77 X 10*6/uL (4.40-5.60); RDW 13.4 % (11.5-14.5); WBC 12.62 X 10*3/uL (4.50-10.00)
[2023-07-27 15:01] LABS: Erythrocyte Sedimentation Rate 3 mm/Hr (0-20)
[2023-07-27 15:26] LABS: Amylase 54 U/L (23-121); Blood Urea Nitrogen 17.3 mg/dL (9.0-27.0); C Reactive Protein <0.30 mg/dL (0.00-0.80); Chloride 104 mmol/L (96-109); Glucose 93 mg/dL (70-110); Lipase 27 U/L (14-60); Potassium 4.7 mmol/L (3.5-5.5); Sodium 140 mmol/L (135-145)
[2023-07-27 15:27] LABS: ALT 23 U/L (10-49); AST 24 U/L (14-35); Albumin 4.3 g/dL (3.8-4.9); Albumin/Globulin Ratio 1.79 Ratio (1.60-3.17); Alkaline Phosphatase 74 U/L (41-126); Calcium 9.7 mg/dL (8.7-10.3); Globulin 2.4 g/dL (1.6-3.3); Total Protein 6.7 g/dL (6.2-8.2)
== END | disposition home or self-care (01) ==
LOC: LABWHC1 11:17
PROVIDERS: ATTEND Family Medicine
DX: D35.2 Benign neoplasm of pituitary gland (principal); R10.32 Left lower quadrant pain
CPT/HCPCS: 36415; 80053; 82150; 83690; 84146; 84403; 84443; 85025; 85652; 86140

== ENCOUNTER → 2023-10-25 | Outpatient (CLI) | payer MEDICARE ==
[2023-10-25 15:40] LABS: ALT 24 U/L (10-49); AST 42 U/L (14-35); Chol/HDL Ratio 4.03 Ratio; LDL Cholesterol,Calculated 26.6 mg/dL (0.0-131.0)
== END | disposition home or self-care (01) ==
LOC: LABWHC1 10:06
PROVIDERS: ATTEND Internal Medicine Interventional Cardiology
DX: E78.2 Mixed hyperlipidemia (principal)
CPT/HCPCS: 36415; 80061; 84450; 84460

== ENCOUNTER → 2024-04-25 | Outpatient (CLI) | payer MEDICARE ==
[2024-04-25 15:53] LABS: Chol/HDL Ratio 4.37 Ratio
[2024-04-25 15:56] LABS: ALT 40 U/L (10-49); AST 51 U/L (14-35); Albumin 4.1 g/dL (3.8-4.9); Albumin/Globulin Ratio 1.71 Ratio (1.60-3.17); Alkaline Phosphatase 81 U/L (41-126); BUN/Creat Ratio 10.91 Ratio (12.00-20.00); Calcium 9.3 mg/dL (8.7-10.3); Carbon Dioxide 26.1 mmol/L (21.6-31.8); Chloride 104 mmol/L (96-109); Globulin 2.4 g/dL (1.6-3.3); Glucose 114 mg/dL (70-110); Potassium 4.6 mmol/L (3.5-5.5); Sodium 141 mmol/L (135-145); Total Bilirubin 1.2 mg/dL (0.3-1.2); Total Protein 6.5 g/dL (6.2-8.2)
== END | disposition home or self-care (01) ==
LOC: LABWHC1 08:36
PROVIDERS: ATTEND Internal Medicine Interventional Cardiology
DX: E78.2 Mixed hyperlipidemia (principal)
CPT/HCPCS: 36415; 80053; 80061